=== PATIENT | female | born 1980 | race Caucasian/White ===

== ENCOUNTER 2017-04-22 15:23 | Emergency (ER) | payer MEDICAID ==
[2017-04-22] MEDS: Sodium Chloride 0.9% 10 ML Syringe FLUSH PRN ×2 (16:45→17:30)
[2017-04-22] MEDS ORDERED: Sodium Chloride 0.9% 10 ML SDV FLUSH ONE (17:12)
[2017-04-22] MEDS ORDERED: Iopamidol 612 MG/ML 150 ML Bottle IV PRN (17:12)
--- NOTE | 2017-04-22 18:00 | EDM.PDOC ---
<Frederick Justin - Last Filed: 04/22/17 17:52> ED HPI GENERAL MEDICAL PROBLEM - General Chief Complaint: Abdominal Pain Stated Complaint: ILLNESS Time Seen by Provider: 04/22/17 16:55 Source of Information: Reports: Patient History Limitations: Reports: No Limitations - History of Present Illness INITIAL COMMENTS - FREE TEXT/NARRATIVE: This patient complains of right lower quadrant pain and tenderness for the past 10 days. She says it feels like there may be an abscess. She had a panniculectomy last summer. There were 2 abscesses after that. It sounds like they were superficial and within the abdominal wall. She was seen in clinic yesterday. The whole I she feels the same as when she had abscesses. She's had dry heaves for about one week. Temperature was 100.4 in clinic yesterday she said her white blood cell count was normal. The white blood cell count was repeated earlier today and she said that was normal. Her PCP ordered an abdominal CT scan which is supposed to be done on Tuesday. Patient says that she 's had abdominal pain for a few weeks now. Right Lower Abdomen Pain Score (Numeric/FACES): 3 - Related Data Allergies Allergy/AdvReac Type Severity Reaction Status Date / Time shellfish derived Allergy Severe Anaphylactic Verified 05/22/16 08:21 Shock kiwi Allergy Facial Verified 07/05/16 08:13 Swelling Penicillins Allergy Rash Verified 05/22/16 08:21 clonazepam [From Klonopin] AdvReac Hallucinati Verified 05/22/16 10:44 ons hydromorphone HCl AdvReac Nausea Verified 05/22/16 08:21 [From Dilaudid] varenicline tartrate AdvReac Seizure Verified 05/22/16 08:21 [From Chantix] Home Meds: Home Meds FLUoxetine [PROzac] 80 mg PO DAILY 06/03/14 [History] Albuterol [Ventolin HFA] 2 puff INH Q4H PRN 06/06/14 [History] LORazepam [Ativan] 1 mg PO Q4HR PRN 06/06/14 [History] Omeprazole [Prilosec] 40 mg PO DAILY 08/13/14 [History] Dextroamphetamine/Amphetamine [Adderall 20 mg Tablet] 20 mg PO 1400 07/09/15 [ History] lamoTRIgine [Lamotrigine] 100 mg PO DAILY 07/09/15 [History] Levothyroxine Sodium [Synthroid] 112 mcg PO ACBREAKFAST 05/05/16 [History] Levothyroxine Sodium [Synthroid] 125 mcg PO DAILY 05/05/16 [History] Albuterol Sulfate 3 ml INH Q4HR PRN 05/07/16 [History] Amphetamine/Dextroamphetamine [Adderall XR] 40 mg PO WITHBREAKFAST cap.er 07/06 [Rx] Prazosin [Minpress] 20 mg PO BEDTIME 04/22/17 [History] Past Medical History HEENT History: Reports: Hard of Hearing Respiratory History: Reports: Asthma, Pneumonia, Recurrent Gastrointestinal History: Reports: Chronic Constipation, GERD Genitourinary History: Reports: Renal Calculus 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: Neurological History: Reports: Seizure Other Neuro History: pseudo-seizures r/t anxiety Psychiatric History: Reports: Anxiety, Depression, Psychosis, PTSD, Other (See Below) Other Psychiatric History: multiple personality disorder; 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" Endocrine/Metabolic History: Reports: Hypothyroidism, Obesity/BMI 30+, Vitamin D Deficiency Immunologic History: Reports: Other (See Below) Other Immunologic History: MRSA Oncologic (Cancer) History: Reports: None - Infectious Disease History Infectious Disease History: Reports: Chicken Pox - Past Surgical History HEENT Surgical History: Reports: Adenoidectomy, Other (See Below) GI Surgical History: Reports: Appendectomy, Cholecystectomy, Colonoscopy, EGD, Other (See Below) Other GI Surgeries/Procedures: panniculectomy, drainage of abdominal abcess x's 2 Female Surgical History: Reports: Breast Biopsy, Endometrial Ablation, Hysterectomy, Other (See Below) Neurological Surgical History: Reports: None Oncologic Surgical History: Reports: Lumpectomy Dermatological Surgical History: Reports: Skin Biopsy Social & Family History - Family History Family Medical History: Noncontributory HEENT: Reports: Macular Degeneration Cardiac: Reports: Hypertension Neurological: Reports: CVA Psychiatric: Reports: Anxiety, Depression Endocrine/Metabolic: Reports: Diabetes, type II Dermatologic: Reports: Psoriasis Oncologic: Reports: Colon - Tobacco Use Smoking Status *Q: Current Every Day Smoker Years of Tobacco use: 20 Packs/Tins Daily: 0.5 Used Tobacco, but Quit: No Month Tobacco Last Used: May Second Hand Smoke Exposure: No - Alcohol Use Days Per Week of Alcohol Use: 0 - Recreational Drug Use Recreational Drug Use: No - Living Situation & Occupation Living situation: Reports: with Significant Other Occupation: Employed ED ROS GENERAL - Review of Systems Review Of Systems: See Below Constitutional: Reports: Fever HEENT: Reports: No Symptoms Respiratory: Reports: No Symptoms Cardiovascular: Reports: No Symptoms Endocrine: Reports: No Symptoms GI/Abdominal: Reports: Other (See HPI ) : Reports: No Symptoms Musculoskeletal: Reports: No Symptoms Skin: Reports: No Symptoms Neurological: Reports: No Symptoms (About it) Psychiatric: Reports: No Symptoms Hematologic/Lymphatic: Reports: No Symptoms (The) ED EXAM, GI/ABD - Physical Exam Exam: See Below Exam Limited By: No Limitations General Appearance: Alert, Mild Distress, Obese Eyes: Bilateral: Normal Appearance Nose: Normal Inspection Throat/Mouth: Normal Oropharynx Head: Atraumatic Neck: Supple Respiratory/Chest: Lungs Clear Cardiovascular: Regular Rate, Rhythm, No Murmur GI/Abdominal: Normal Bowel Sounds, Soft, Tenderness (Mild to moderate right lower quadrant tenderness. No rebound.) Extremities: Normal Inspection Neurological: Alert, Oriented, CN II-XII Intact Lymphatic: No Adenopathy Course - Vital Signs Last Recorded V/S: Last Vital Signs Temp 99.7 F 04/22/17 15:44 Pulse 86 04/22/17 18:35 Resp 16 04/22/17 18:35 BP 125/71 04/22/17 18:35 Pulse Ox 98 04/22/17 18:35 - Orders/Labs/Meds Orders: Active Orders 24 hr Category Date Time Status Abdomen Pelvis w Cont [CT] Stat Exams 04/22/17 16:35 Taken CULTURE BLOOD [BC] Urgent Lab 04/22/17 18:55 Received CULTURE BLOOD [BC] Urgent Lab 04/22/17 19:05 Received Blood Culture x2 Reflex Set [OM.PC] Urgent Oth 04/22/17 18:53 Ordered Saline Lock Insert [OM.PC] Urgent Oth 04/22/17 16:35 Ordered Labs: Laboratory Tests 04/22/17 04/22/17 04/22/17 Range/Units 16:31 16:40 17:42 WBC 10.2 (4.5-11.0) K/uL RBC 5.04 (3.30-5.50) M/uL Hgb 14.3 D (12.0-15.0) g/dL Hct 42.7 (36.0-48.0) % MCV 85 (80-98) fL MCH 28 (27-31) pg MCHC 34 (32-36) % Plt Count 323 (150-400) K/uL Neut % (Auto) 59 (36-66) % Lymph % (Auto) 27 (24-44) % [place] % (Auto) 12 H (2-6) % Eos % (Auto) 1 L (2-4) % Baso % (Auto) 1 (0-1) % Sodium 134 L (140-148) mmol/L Potassium 4.2 (3.6-5.2) mmol/L Chloride 100 (100-108) mmol/L Carbon Dioxide 26 (21-32) mmol/L Anion Gap 12.2 (5.0-14.0) mmol/L BUN 12 (7-18) mg/dL Creatinine 0.8 (0.6-1.0) mg/dL Est Cr Clr Drug Dosing 84.76 mL/min Estimated GFR (MDRD) > 60 (>60) Glucose 95 (74-106) mg/dL Calcium 8.3 L (8.5-10.1) mg/dL Total Bilirubin 0.2 (0.2-1.0) mg/dL AST 22 (15-37) U/L ALT 41 D (12-78) U/L Alkaline Phosphatase 106 (46-116) U/L Total Protein 7.1 (6.4-8.2) g/dL Albumin 3.4 (3.4-5.0) g/dL Globulin 3.7 H (2.3-3.5) g/dL Albumin/Globulin Ratio 0.9 L (1.2-2.2) Urine Color Yellow Urine Appearance Cloudy Urine pH 8.0 (4.5-8.0) Ur Specific [place] 1.015 (1.008-1.030) Urine Protein Negative (NEGATIVE) mg/dL Urine Glucose (UA) Normal (NEGATIVE) mg/dL Urine Ketones Negative (NEGATIVE) mg/dL Urine Occult Blood Negative (NEGATIVE) Urine Nitrite Negative (NEGATIVE) Urine Bilirubin Negative (NEGATIVE) Urine Urobilinogen Normal (NORMAL) mg/dL Ur Leukocyte Esterase Small (NEGATIVE) Urine RBC 0-5 (0-5) Urine WBC 0-5 (0-5) Ur Epithelial Cells Many Amorphous Sediment Few Urine Bacteria Moderate Urine Mucus Rare Meds: Medications Discontinued Medications Generic Name Dose Route Start Last Admin Trade Name Erasmo PRN Reason Stop Dose Admin Sodium Chloride 85 mls @ 3 mls/sec 04/22/17 17:15 04/22/17 17:30 Normal Saline IV 3 mls/sec ASDIRECTED JOSE Administration Iopamidol 146 ml 04/22/17 17:12 Isovue-300 (61%) IV 04/23/17 17:13 . DIRECTED PRN RADIOLOGY EXAM Sodium Chloride 10 ml 04/22/17 16:35 04/22/17 17:30 Saline Flush FLUSH 10 ml ASDIRECTED PRN Administration Keep Vein Open Sodium Chloride 10 ml 04/22/17 17:12 Normal Saline FLUSH 04/22/17 17:13 ONETIME ONE Departure - Departure Disposition: Home, Self-Care 01 Clinical Impression: Fever, unknown origin Abdominal pain Qualifiers: Abdominal location: lower abdomen, unspecified Qualified Code(s): R10.30 - Lower abdominal pain, unspecified - Discharge Information Instructions: Fever, Adult, Abdominal Pain, Adult, [id number] Referrals: Guillermo Matos MD [Primary Care Provider] - Forms: ED Department Discharge Care Plan Goals: Increase diet and activity as tolerated. Return if worsening or concerns, and we will be in touch with you with the culture results in the next 48-72 hours. - My Orders Last 24 Hours: My Active Orders 04/22/17 18:53 Blood Culture x2 Reflex Set [OM.PC] Urgent 04/22/17 18:55 CULTURE BLOOD [BC] Urgent 04/22/17 19:05 CULTURE BLOOD [BC] Urgent - Assessment/Plan Last 24 Hours: My Active Orders 04/22/17 18:53 Blood Culture x2 Reflex Set [OM.PC] Urgent 04/22/17 18:55 CULTURE BLOOD [BC] Urgent 04/22/17 19:05 CULTURE BLOOD [BC] Urgent <Paramjit Mohr - Last Filed: 04/22/17 20:36> Course - Re-Assessments/Exams Free Text/Narrative Re-Assessment/Exam: 04/22/17 19:07 I reassured the patient that her CT scan was normal. She continued to insist that something was wrong, she is running intermittent fevers and her white count has gone up over the past several days. I a set of blood cultures and we will be in contact with her in a few days with results, I offered her an antibiotic until the results are available and she declined. Departure - Departure Time of Disposition: 19:23 Condition: good
[2017-04-22 18:36] VITALS: BP 125/71
== END 2017-04-22 19:20 | disposition home or self-care (01) ==
LOC: JP.ED 15:23
DX: R10.31 Right lower quadrant pain (principal); F17.210 Nicotine dependence, cigarettes, uncomplicated; J45.909 Unspecified asthma, uncomplicated; K21.9 Gastro-esophageal reflux disease without esophagitis; E03.9 Hypothyroidism, unspecified; E66.9 Obesity, unspecified; F43.10 Post-traumatic stress disorder, unspecified; Z90.89 Acquired absence of other organs; Z90.710 Acquired absence of both cervix and uterus; Z79.899 Other long term (current) drug therapy; Z88.0 Allergy status to penicillin; Z91.013 Allergy to seafood; Z88.8 Allergy status to other drugs, medicaments and biological substances; Z91.018 Allergy to other foods
CPT/HCPCS: 36415; 74177; 80053; 81001; 85025; 87040; 96360; 96361; 99284; J7030; J7050; 99283-25

== ENCOUNTER 2017-05-09 16:42 | Emergency (ER) | payer MEDICAID ==
[2017-05-09 18:21] VITALS: BP 128/77
[2017-05-09] MEDS ORDERED: Bacitracin Oint 1 GM U/D Packet TOP ONE (18:39)
--- NOTE | 2017-05-09 18:41 | EDM.PDOC ---
[id number] 4d CUT RIGHT THUMB Time Seen by Provider: 05/09/17 18:30 Source of Information: Reports: Patient History Limitations: Reports: No Limitations - History of Present Illness INITIAL COMMENTS - FREE TEXT/NARRATIVE: 36-year-old female with a laceration to the right hand. She was struck on the dorsal right hand between the thumb and index finger. She has pain with movement of the thumb. The laceration is 2 cm long. Onset: Today Duration: Hour(s): (Within the last hour) Hand Pain Score (Numeric/FACES): 6 - Related Data Allergies Allergy/AdvReac Type Severity Reaction Status Date / Time shellfish derived Allergy Severe Anaphylactic Verified 05/09/17 18:24 Shock kiwi Allergy Facial Verified 05/09/17 18:24 Swelling Penicillins Allergy Rash Verified 05/09/17 18:24 clonazepam [From Klonopin] AdvReac Hallucinati Verified 05/09/17 18:24 ons hydromorphone HCl AdvReac Nausea Verified 05/09/17 18:24 [From Dilaudid] varenicline tartrate AdvReac Seizure Verified 05/09/17 18:24 [From Chantix] Home Meds: Home Meds FLUoxetine [PROzac] 80 mg PO DAILY 06/03/14 [History] Albuterol [Ventolin HFA] 2 puff INH Q4H PRN 06/06/14 [History] LORazepam [Ativan] 1 mg PO Q4HR PRN 06/06/14 [History] Omeprazole [Prilosec] 40 mg PO DAILY 08/13/14 [History] Dextroamphetamine/Amphetamine [Adderall 20 mg Tablet] 20 mg PO 1400 07/09/15 [ History] lamoTRIgine [Lamotrigine] 150 mg PO DAILY 07/09/15 [History] Levothyroxine Sodium [Synthroid] 112 mcg PO ACBREAKFAST 05/05/16 [History] Levothyroxine Sodium [Synthroid] 125 mcg PO DAILY 05/05/16 [History] Albuterol Sulfate 3 ml INH Q4HR PRN 05/07/16 [History] Amphetamine/Dextroamphetamine [Adderall XR] 40 mg PO WITHBREAKFAST cap.er 07/06 [Rx] Past Medical History HEENT History: Reports: Hard of Hearing Respiratory History: Reports: Asthma, Pneumonia, Recurrent Gastrointestinal History: Reports: Chronic Constipation, GERD Genitourinary History: Reports: Renal Calculus 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: Neurological History: Reports: Seizure Other Neuro History: pseudo-seizures r/t anxiety Psychiatric History: Reports: Anxiety, Depression, Psychosis, PTSD, Other (See Below) Other Psychiatric History: multiple personality disorder; 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" Endocrine/Metabolic History: Reports: Hypothyroidism, Obesity/BMI 30+, Vitamin D Deficiency Immunologic History: Reports: Other (See Below) Other Immunologic History: MRSA Oncologic (Cancer) History: Reports: None - Infectious Disease History Infectious Disease History: Reports: MRSA - Past Surgical History HEENT Surgical History: Reports: Adenoidectomy, Other (See Below) GI Surgical History: Reports: Appendectomy, Cholecystectomy, Colonoscopy, EGD, Other (See Below) Other GI Surgeries/Procedures: panniculectomy, drainage of abdominal abcess x's 2 Female Surgical History: Reports: Breast Biopsy, Endometrial Ablation, Hysterectomy, Other (See Below) Neurological Surgical History: Reports: None Oncologic Surgical History: Reports: Lumpectomy Dermatological Surgical History: Reports: Skin Biopsy Social & Family History - Family History Family Medical History: Noncontributory HEENT: Reports: Macular Degeneration Cardiac: Reports: Hypertension Neurological: Reports: CVA Psychiatric: Reports: Anxiety, Depression Endocrine/Metabolic: Reports: Diabetes, type II Dermatologic: Reports: Psoriasis Oncologic: Reports: Colon - Tobacco Use Smoking Status *Q: Current Every Day Smoker Years of Tobacco use: 20 Packs/Tins Daily: 0.5 Used Tobacco, but Quit: No Month Tobacco Last Used: May Second Hand Smoke Exposure: No - Alcohol Use Days Per Week of Alcohol Use: 0 - Recreational Drug Use Recreational Drug Use: No - Living Situation & Occupation Living situation: Reports: with Significant Other Occupation: Employed ED ROS GENERAL - Review of Systems Review Of Systems: See Below Respiratory: Denies: Shortness of Breath Cardiovascular: Denies: Chest Pain Neurological: Reports: No Symptoms (No numbness of the thumb) ED EXAM, SKIN/RASH Exam: See Below Exam Limited By: No Limitations General Appearance: Alert, Anxious Respiratory/Chest: No Respiratory Distress Extremities: Other (Remainder of exam is limited to the right hand. She has a 2 cm laceration on the dorsum of the hand noted the base of the thumb towards the index finger. She has pain with movement of the thumb.) Course - Vital Signs Last Recorded V/S: Last Vital Signs Temp 99.4 F 05/09/17 18:22 Pulse 104 H 05/09/17 18:22 Resp 16 05/09/17 18:22 BP 128/77 05/09/17 18:22 Pulse Ox 99 05/09/17 18:22 - Orders/Labs/Meds Meds: Medications Discontinued Medications Generic Name Dose Route Start Last Admin Trade Name Erasmo PRN Reason Stop Dose Admin Bacitracin 1 dose 05/09/17 18:39 05/09/17 18:44 Bacitracin Oint 1 Gm TOP 05/09/17 18:40 1 dose ONETIME ONE Administration Lidocaine HCl 5 ml 05/09/17 18:39 05/09/17 18:44 Xylocaine-Mpf 1% INJECT 05/09/17 18:40 5 ml ONETIME ONE Administration - Re-Assessments/Exams Free Text/Narrative Re-Assessment/Exam: 05/09/17 19:06 The area was anesthetized with 1% lidocaine, cleansed with saline and Hibiclens and examined. There was no foreign body found and no apparent significant injury deep to the wound. 4 4-0 Ethilon sutures were used to close the laceration, bacitracin was applied and the wound was covered. She will she was also given an Filipe wrap to put in a thumb spica pattern around the thumb to limit range of motion. Sutures can be removed in 7 days. She should increase activity as tolerated. Recheck next week if not healing satisfactorily. Departure - Departure Time of Disposition: 19:20 Disposition: Home, Self-Care 01 Condition: Good Clinical Impression: Laceration of hand Qualifiers: Encounter type: initial encounter Foreign body presence: without foreign body Laterality: right Qualified Code(s): S61.411A - Laceration without foreign body of right hand, initial encounter - Discharge Information Instructions: Laceration Care, Adult, [id number] Referrals: Guillermo Matos MD [Primary Care Provider] - Forms: ED Department Discharge Care Plan Goals: Keep wound covered and clean while healing. Increase activity as tolerated, and recheck in 4-5 days if concerns you are not healing satisfactorily. Sutures can be removed in 7 days.
== END 2017-05-09 19:20 | disposition home or self-care (01) ==
LOC: JP.ED 16:42
DX: S61.411A Laceration without foreign body of right hand, initial encounter (principal); J45.909 Unspecified asthma, uncomplicated; K21.9 Gastro-esophageal reflux disease without esophagitis; E03.9 Hypothyroidism, unspecified; E66.9 Obesity, unspecified; Z88.0 Allergy status to penicillin; Z91.018 Allergy to other foods; Z88.8 Allergy status to other drugs, medicaments and biological substances; Z79.899 Other long term (current) drug therapy; W22.8XXA Striking against or struck by other objects, initial encounter
CPT/HCPCS: 12001; 99282-25; 99283-25

== ENCOUNTER 2017-09-01 01:14 | Emergency (ER) | payer MEDICAID ==
--- NOTE | 2017-09-01 02:06 | EDM.PDOC ---
ED HPI GENERAL MEDICAL PROBLEM - General Chief Complaint: Wound Recheck Stated Complaint: REPACK EAR AFTER SURGERY Time Seen by Provider: 09/01/17 02:02 Source of Information: Reports: Patient History Limitations: Reports: No Limitations - History of Present Illness INITIAL COMMENTS - FREE TEXT/NARRATIVE: This lady had a lot of surgery done to her right ear recently. The wound was packed and somehow tonight when she rolled over in bed some of the packing pulled out she said it just a long strip of thin gauze Right Ear Pain Score (Numeric/FACES): 8 - Related Data Allergies Allergy/AdvReac Type Severity Reaction Status Date / Time shellfish derived Allergy Severe Anaphylactic Verified 05/09/17 18:24 Shock kiwi Allergy Facial Verified 05/09/17 18:24 Swelling Penicillins Allergy Rash Verified 05/09/17 18:24 clonazepam [From Klonopin] AdvReac Hallucinati Verified 05/09/17 18:24 ons hydromorphone HCl AdvReac Nausea Verified 05/09/17 18:24 [From Dilaudid] varenicline tartrate AdvReac Seizure Verified 05/09/17 18:24 [From Chantix] Home Meds: Home Meds FLUoxetine [PROzac] 80 mg PO DAILY 06/03/14 [History] Albuterol [Ventolin HFA] 2 puff INH Q4H PRN 06/06/14 [History] LORazepam [Ativan] 1 mg PO Q4HR PRN 06/06/14 [History] Omeprazole [Prilosec] 40 mg PO DAILY 08/13/14 [History] Dextroamphetamine/Amphetamine [Adderall 20 mg Tablet] 20 mg PO 1400 07/09/15 [ History] lamoTRIgine [Lamotrigine] 150 mg PO DAILY 07/09/15 [History] Levothyroxine Sodium [Synthroid] 112 mcg PO ACBREAKFAST 05/05/16 [History] Albuterol Sulfate 3 ml INH Q4HR PRN 05/07/16 [History] Amphetamine/Dextroamphetamine [Adderall XR] 40 mg PO WITHBREAKFAST cap.er 07/06 [Rx] Albuterol/Ipratropium [DuoNeb 3.0-0.5 MG/3 ML] 1 dose INH Q4H PRN 09/01/17 [ History] Past Medical History HEENT History: Reports: Hard of Hearing, Other (See Below) Other HEENT History: ear surgery to right Respiratory History: Reports: Asthma, Pneumonia, Recurrent Gastrointestinal History: Reports: Chronic Constipation, GERD Genitourinary History: Reports: Renal Calculus 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: Neurological History: Reports: Seizure Other Neuro History: pseudo-seizures r/t anxiety Psychiatric History: Reports: Anxiety, Depression, Psychosis, PTSD, Other (See Below) Other Psychiatric History: multiple personality disorder; 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" Endocrine/Metabolic History: Reports: Hypothyroidism, Obesity/BMI 30+, Vitamin D Deficiency Immunologic History: Reports: Other (See Below) Other Immunologic History: MRSA Oncologic (Cancer) History: Reports: None - Infectious Disease History Infectious Disease History: Reports: Chicken Pox, MRSA - Past Surgical History HEENT Surgical History: Reports: Adenoidectomy, Other (See Below) GI Surgical History: Reports: Appendectomy, Cholecystectomy, Colonoscopy, EGD, Other (See Below) Other GI Surgeries/Procedures: panniculectomy, drainage of abdominal abcess x's 2 Female Surgical History: Reports: Breast Biopsy, Endometrial Ablation, Hysterectomy, Other (See Below) Neurological Surgical History: Reports: None Oncologic Surgical History: Reports: Lumpectomy Dermatological Surgical History: Reports: Skin Biopsy Social & Family History - Family History Family Medical History: Noncontributory HEENT: Reports: Macular Degeneration Cardiac: Reports: Hypertension Neurological: Reports: CVA Psychiatric: Reports: Anxiety, Depression Endocrine/Metabolic: Reports: Diabetes, type II Dermatologic: Reports: Psoriasis Oncologic: Reports: Colon - Tobacco Use Smoking Status *Q: Former Smoker Years of Tobacco use: 20 Packs/Tins Daily: 0.5 Used Tobacco, but Quit: Yes Month Tobacco Last Used: july Second Hand Smoke Exposure: No - Caffeine Use Caffeine Use: Reports: Coffee, Soda - Alcohol Use Days Per Week of Alcohol Use: 0 - Recreational Drug Use Recreational Drug Use: No - Living Situation & Occupation Living situation: Reports: with Significant Other Occupation: Employed ED ROS GENERAL - Review of Systems Review Of Systems: ROS reveals no pertinent complaints other than HPI. ED EXAM, SKIN/RASH Exam: See Below Exam Limited By: No Limitations General Appearance: Alert, No Apparent Distress Ears: Other (The right ear shows there is still quite a bit of packing down deep in the ear. There is no drainage. It appears that a superficial layer of packing fell out of the ear but what is deep inside is all intact) Course - Vital Signs Last Recorded V/S: Last Vital Signs Temp 37.1 C 09/01/17 01:25 Pulse 85 09/01/17 01:25 Resp 20 09/01/17 01:25 BP 143/93 H 09/01/17 01:25 Pulse Ox 98 09/01/17 01:25 - Re-Assessments/Exams Free Text/Narrative Re-Assessment/Exam: 09/01/17 02:04 Half-inch plain gauze was moistened with saline and then a short length of that was placed inside the right ear on top of the other gauze. Then the date of 4 before type of dressing was then put over it and and her head was wrapped with Kerlix Departure - Departure Time of Disposition: 02:04 Disposition: Home, Self-Care 01 Condition: Fair Clinical Impression: Encounter for surgical wound dressing change - Discharge Information Referrals: Guillermo Matos MD [Primary Care Provider] - Additional Instructions: Since the packing deep inside of the ear is still intact there is no real need to contact your tomorrow. Just plan to follow-up as originally arranged
[2017-09-01 03:22] VITALS: BP 143/93
== END 2017-09-01 02:17 | disposition home or self-care (01) ==
LOC: JP.ED 01:14
DX: Z48.810 Encounter for surgical aftercare following surgery on the sense organs (principal); K21.9 Gastro-esophageal reflux disease without esophagitis; J45.909 Unspecified asthma, uncomplicated; Z91.013 Allergy to seafood; Z88.0 Allergy status to penicillin; Z88.5 Allergy status to narcotic agent; Z88.8 Allergy status to other drugs, medicaments and biological substances; Z79.899 Other long term (current) drug therapy; Z87.442 Personal history of urinary calculi; Z87.891 Personal history of nicotine dependence
CPT/HCPCS: 99283; 99284

== ENCOUNTER 2017-09-02 21:00 | Emergency (ER) | payer MEDICAID ==
[2017-09-02 21:34] VITALS: BP 148/92
[2017-09-02] MEDS ORDERED: fentaNYL 100 MCG/2 ML SDV IM ONE (22:17)
--- NOTE | 2017-09-02 22:23 | EDM.PDOC ---
ED HPI GENERAL MEDICAL PROBLEM - General Chief Complaint: ENT Problem Stated Complaint: EAR PAIN Time Seen by Provider: 09/02/17 22:00 Source of Information: Reports: Patient History Limitations: Reports: No Limitations - History of Present Illness INITIAL COMMENTS - FREE TEXT/NARRATIVE: 37 years old female patient presented with chief complaint of right ear ache. Patient is status post surgery on the right ear and right mastoid area last Tuesday at [facility]. She has been doing well until 1 PM today when she sneezed and started having an instant pain in her right ear after she sneezed. Denies any fever. Denies any bleeding or discharge from her ear. Patient contacted [facility] and was instructed to take her oxycodone to [place] instead of 1 every 4 hour and add Tylenol to her regimen and if it didn't work then she was advised to present to ER or urgent care for pain medication. right ear Pain Score (Numeric/FACES): 10 - Related Data Allergies Allergy/AdvReac Type Severity Reaction Status Date / Time shellfish derived Allergy Severe Anaphylactic Verified 09/02/17 21:34 Shock kiwi Allergy Facial Verified 09/02/17 21:34 Swelling Penicillins Allergy Rash Verified 09/02/17 21:34 clonazepam [From Klonopin] AdvReac Hallucinati Verified 09/02/17 21:34 ons hydromorphone HCl AdvReac Nausea Verified 09/02/17 21:34 [From Dilaudid] varenicline tartrate AdvReac Seizure Verified 09/02/17 21:34 [From Chantix] Home Meds: Home Meds FLUoxetine [PROzac] 80 mg PO DAILY 06/03/14 [History] Albuterol [Ventolin HFA] 2 puff INH Q4H PRN 06/06/14 [History] LORazepam [Ativan] 1 mg PO Q4HR PRN 06/06/14 [History] Omeprazole [Prilosec] 40 mg PO DAILY 08/13/14 [History] Dextroamphetamine/Amphetamine [Adderall 20 mg Tablet] 20 mg PO 1400 07/09/15 [ History] lamoTRIgine [Lamotrigine] 150 mg PO DAILY 07/09/15 [History] Levothyroxine Sodium [Synthroid] 112 mcg PO ACBREAKFAST 05/05/16 [History] Albuterol Sulfate 3 ml INH Q4HR PRN 05/07/16 [History] Amphetamine/Dextroamphetamine [Adderall XR] 40 mg PO WITHBREAKFAST cap.er 07/06 [Rx] Albuterol/Ipratropium [DuoNeb 3.0-0.5 MG/3 ML] 1 dose INH Q4H PRN 09/01/17 [ History] Past Medical History HEENT History: Reports: Hard of Hearing, Other (See Below) Other HEENT History: ear surgery to right Respiratory History: Reports: Asthma, Pneumonia, Recurrent Gastrointestinal History: Reports: Chronic Constipation, GERD Genitourinary History: Reports: Renal Calculus 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: Neurological History: Reports: Seizure Other Neuro History: pseudo-seizures r/t anxiety Psychiatric History: Reports: Anxiety, Depression, Psychosis, PTSD, Other (See Below) Other Psychiatric History: multiple personality disorder; 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" Endocrine/Metabolic History: Reports: Hypothyroidism, Obesity/BMI 30+, Vitamin D Deficiency Immunologic History: Reports: Other (See Below) Other Immunologic History: MRSA Oncologic (Cancer) History: Reports: None - Infectious Disease History Infectious Disease History: Reports: Chicken Pox, MRSA - Past Surgical History HEENT Surgical History: Reports: Adenoidectomy, Other (See Below) GI Surgical History: Reports: Appendectomy, Cholecystectomy, Colonoscopy, EGD, Other (See Below) Other GI Surgeries/Procedures: panniculectomy, drainage of abdominal abcess x's 2 Female Surgical History: Reports: Breast Biopsy, Endometrial Ablation, Hysterectomy, Other (See Below) Neurological Surgical History: Reports: None Oncologic Surgical History: Reports: Lumpectomy Dermatological Surgical History: Reports: Skin Biopsy Social & Family History - Family History Family Medical History: Noncontributory HEENT: Reports: Macular Degeneration Cardiac: Reports: Hypertension Neurological: Reports: CVA Psychiatric: Reports: Anxiety, Depression Endocrine/Metabolic: Reports: Diabetes, type II Dermatologic: Reports: Psoriasis Oncologic: Reports: Colon - Tobacco Use Smoking Status *Q: Unknown Ever Smoked Years of Tobacco use: 20 Packs/Tins Daily: 0.5 Used Tobacco, but Quit: Yes Month Tobacco Last Used: july Second Hand Smoke Exposure: No - Caffeine Use Caffeine Use: Reports: Coffee, Soda - Alcohol Use Days Per Week of Alcohol Use: 0 - Recreational Drug Use Recreational Drug Use: No - Living Situation & Occupation Living situation: Reports: with Significant Other Occupation: Employed ED ROS ENT - Review of Systems Review Of Systems: ROS reveals no pertinent complaints other than HPI. ED EXAM, ENT - Physical Exam Exam: See Below Exam Limited By: No Limitations General Appearance: Alert, WD/WN, No Apparent Distress Ears: Other (Left ear unremarkable. Patient was instructed not to remove the ear packing in her right ear. No obvious external bleeding or discharge or erythema. Surgical wound is healing appropriately) Course - Vital Signs Last Recorded V/S: Last Vital Signs Temp 37.1 C 09/02/17 21:32 Pulse 109 H 09/02/17 21:32 Resp 15 09/02/17 21:32 BP 148/92 H 09/02/17 21:32 Pulse Ox 96 09/02/17 21:32 - Orders/Labs/Meds Meds: Medications Discontinued Medications Generic Name Dose Route Start Last Admin Trade Name Gurwinderq PRN Reason Stop Dose Admin Fentanyl 100 mcg 09/02/17 22:17 09/02/17 22:35 Sublimaze IM 09/02/17 22:18 100 mcg ONETIME ONE Administration - Re-Assessments/Exams Free Text/Narrative Re-Assessment/Exam: 09/02/17 22:22 Patient was examined and stable. She is allergic to Dilaudid and morphine. She was offered IV fentanyl versus IM and she chose IM. Was given 100 g of IM fentanyl. Symptom markedly improved. Advised to continue her home pain meds and follow her ENT recommendation. With a close follow-up. Come back symptom worsen. Patient agrees with the plan. Stable for discharge 09/02/17 22:59 Departure - Departure Time of Disposition: 23:00 Disposition: DC/Tfer W/I Hosp To Swing 61 Condition: Good Clinical Impression: Ear ache, Postoperative pain - Discharge Information Referrals: Guillermo Matos MD [Primary Care Provider] - Forms: ED Department Discharge - Assessment/Plan Plan: Advised to continue her home pain meds and follow her ENT recommendation. With a close follow-up. Come back symptom worsen.
== END 2017-09-02 23:16 | disposition home or self-care (01) ==
LOC: JP.ED 21:00
DX: G89.18 Other acute postprocedural pain (principal); H92.01 Otalgia, right ear; Z91.013 Allergy to seafood; Z91.018 Allergy to other foods; Z88.6 Allergy status to analgesic agent; Z79.899 Other long term (current) drug therapy; J45.909 Unspecified asthma, uncomplicated; K21.9 Gastro-esophageal reflux disease without esophagitis; E66.9 Obesity, unspecified
CPT/HCPCS: 96372; 99284; J3010

== ENCOUNTER 2017-09-23 12:05 | Emergency (ER) | payer MEDICAID ==
[2017-09-23 13:57] VITALS: BP 151/91
[2017-09-23] MEDS ORDERED: Sulfamethoxazole/Trimethoprim 800-160 MG Tab PO ONE (14:11)
[2017-09-23] MEDS ORDERED: Acetaminophen/oxyCODONE 325-5 MG Tab PO ONE (14:12)
--- NOTE | 2017-09-23 14:15 | EDM.PDOC ---
ED HPI GENERAL MEDICAL PROBLEM - General Chief Complaint: ENT Problem Stated Complaint: right ear infected Time Seen by Provider: 09/23/17 14:00 Source of Information: Reports: Patient, Old Records History Limitations: Reports: No Limitations - History of Present Illness INITIAL COMMENTS - FREE TEXT/NARRATIVE: 37 yo female here with R ear pain and purulent drainage. Is on cipro drops and recently finished clindamycin oral. No fever. Had oxycodone earlier for pain relief and is out of this. Had recent R ear surgery in [facility]. Onset: Gradual Duration: Day(s): Location: Reports: Face (R ear. ) Quality: Reports: Ache Severity: Moderate Improves with: Reports: None Worsens with: Reports: Other (Time) Context: Reports: Other (Is being tx'd for otitis externa) Associated Symptoms: Reports: No Other Symptoms. 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 Right Ear Pain Score (Numeric/FACES): 8 - Related Data Allergies Allergy/AdvReac Type Severity Reaction Status Date / Time shellfish derived Allergy Severe Anaphylactic Verified 09/23/17 13:58 Shock kiwi Allergy Facial Verified 09/23/17 13:58 Swelling Penicillins Allergy Rash Verified 09/23/17 13:58 clonazepam [From Klonopin] AdvReac Hallucinati Verified 09/23/17 13:58 ons hydromorphone HCl AdvReac Nausea Verified 09/23/17 13:58 [From Dilaudid] varenicline tartrate AdvReac Seizure Verified 09/23/17 13:58 [From Chantix] Home Meds: Home Meds FLUoxetine [PROzac] 80 mg PO DAILY 06/03/14 [History] Albuterol [Ventolin HFA] 2 puff INH Q4H PRN 06/06/14 [History] LORazepam [Ativan] 1 mg PO Q4HR PRN 06/06/14 [History] Omeprazole [Prilosec] 40 mg PO DAILY 08/13/14 [History] Dextroamphetamine/Amphetamine [Adderall 20 mg Tablet] 20 mg PO 1400 07/09/15 [ History] lamoTRIgine [Lamotrigine] 150 mg PO DAILY 07/09/15 [History] Levothyroxine Sodium [Synthroid] 112 mcg PO ACBREAKFAST 05/05/16 [History] Albuterol Sulfate 3 ml INH Q4HR PRN 05/07/16 [History] Amphetamine/Dextroamphetamine [Adderall XR] 40 mg PO WITHBREAKFAST cap.er 07/06 [Rx] Albuterol/Ipratropium [DuoNeb 3.0-0.5 MG/3 ML] 1 dose INH Q4H PRN 09/01/17 [ History] Ofloxacin [Ocuflox 0.3% Ophth Soln] 4 drop EARRT BID 09/23/17 [History] Sulfamethoxazole/Trimethoprim [Bactrim Ds Tablet] 1 each PO Q12H #20 tablet 02/04 [Rx] oxyCODONE 5 - 10 mg PO Q4H PRN #20 tab 09/23/17 [Rx] Past Medical History HEENT History: Reports: Hard of Hearing, Other (See Below) Other HEENT History: ear surgery to right Respiratory History: Reports: Asthma, Pneumonia, Recurrent Gastrointestinal History: Reports: Chronic Constipation, GERD Genitourinary History: Reports: Renal Calculus 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: Neurological History: Reports: Seizure Other Neuro History: pseudo-seizures r/t anxiety Psychiatric History: Reports: Anxiety, Depression, Psychosis, PTSD, Other (See Below) Other Psychiatric History: multiple personality disorder; 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" Endocrine/Metabolic History: Reports: Hypothyroidism, Obesity/BMI 30+, Vitamin D Deficiency Immunologic History: Reports: Other (See Below) Other Immunologic History: MRSA Oncologic (Cancer) History: Reports: None - Infectious Disease History Infectious Disease History: Reports: Chicken Pox - Past Surgical History HEENT Surgical History: Reports: Adenoidectomy, Other (See Below) GI Surgical History: Reports: Appendectomy, Cholecystectomy, Colonoscopy, EGD, Other (See Below) Other GI Surgeries/Procedures: panniculectomy, drainage of abdominal abcess x's 2 Female Surgical History: Reports: Breast Biopsy, Endometrial Ablation, Hysterectomy, Other (See Below) Neurological Surgical History: Reports: None Oncologic Surgical History: Reports: Lumpectomy Dermatological Surgical History: Reports: Skin Biopsy Social & Family History - Family History Family Medical History: Noncontributory HEENT: Reports: Macular Degeneration Cardiac: Reports: Hypertension Neurological: Reports: CVA Psychiatric: Reports: Anxiety, Depression Endocrine/Metabolic: Reports: Diabetes, type II Dermatologic: Reports: Psoriasis Oncologic: Reports: Colon - Tobacco Use Smoking Status *Q: Current Every Day Smoker Years of Tobacco use: 2 Packs/Tins Daily: 0.5 Used Tobacco, but Quit: Yes Month Tobacco Last Used: july Second Hand Smoke Exposure: No - Caffeine Use Caffeine Use: Reports: Coffee, Soda - Alcohol Use Days Per Week of Alcohol Use: 0 - Recreational Drug Use Recreational Drug Use: No - Living Situation & Occupation Living situation: Reports: with Significant Other Occupation: Employed ED ROS ENT - Review of Systems Review Of Systems: See Below Constitutional: Reports: No Symptoms HEENT: Reports: Ear Discharge, Ear Pain, Hearing Loss (chronic). Denies: Dental Pain, Eye Discharge, Eye Pain, Nosebleed, Nose Pain, Rhinitis, Sinus Problem, Throat Pain, Throat Swelling Respiratory: Reports: No Symptoms Cardiovascular: Reports: No Symptoms Skin: Reports: No Symptoms Neurological: Reports: No Symptoms ED EXAM, ENT - Physical Exam Exam: See Below Exam Limited By: No Limitations General Appearance: Alert, WD/WN, No Apparent Distress, Obese Eye Exam: Bilateral Eye: Normal Inspection Ears: Normal External Exam, Hearing Loss, Canal Discharge, Other (T TM not seen due to drainage present) Nose: Normal Inspection, Normal Mucousa, No Blood Mouth/Throat: Normal Inspection, Normal Gums, Normal Lips, Normal Oropharynx, Normal Teeth Head: Atraumatic, Normocephalic Neck: Normal Inspection, Supple, Non-Tender Respiratory/Chest: No Respiratory Distress, No Accessory Muscle Use Cardiovascular: Regular Rate, Rhythm Neurological: Alert, Oriented, CN II-XII Intact, Normal Cognition, No Motor/ Sensory Deficits Psychiatric: Normal Affect, Normal Mood Skin: Warm, Dry, Intact, Normal Color, No Rash Lymphatic: No Adenopathy Course - Vital Signs Last Recorded V/S: Last Vital Signs Temp 36.6 C 09/23/17 13:48 Pulse 90 09/23/17 13:48 Resp 17 09/23/17 13:48 BP 151/91 H 09/23/17 13:48 Pulse Ox 98 09/23/17 13:48 - Orders/Labs/Meds Meds: Medications Discontinued Medications Generic Name Dose Route Start Last Admin Trade Name Freq PRN Reason Stop Dose Admin Oxycodone/Acetaminophen 1 tab 09/23/17 14:12 Percocet 325-5 Mg PO 09/23/17 14:13 ONETIME ONE Trimethoprim/Sulfamethoxazole 1 tab 09/23/17 14:11 Septra Ds PO 09/23/17 14:12 ONETIME ONE Departure - Departure Time of Disposition: 14:21 Disposition: Home, Self-Care 01 Condition: Fair Clinical Impression: Otitis externa Qualifiers: Otitis externa type: unspecified type Chronicity: unspecified Laterality: right Qualified Code(s): H60.91 - Unspecified otitis externa, right ear - Discharge Information Prescriptions: oxyCODONE 5 - 10 mg PO Q4H PRN #20 tab PRN Reason: Pain Sulfamethoxazole/Trimethoprim [Bactrim Ds Tablet] 1 each PO Q12H #20 tablet Referrals: Guillermo Matos MD [Primary Care Provider] - Forms: ED Department Discharge Additional Instructions: Use the Bactrim as directed until gone. Take oxycodone as needed for pain relief along with acetaminophen. Recheck with your doctor on Tuesday, call for an appt. Return if worse. Continue your ear drops.
== END 2017-09-23 14:40 | disposition home or self-care (01) ==
LOC: JP.ED 12:05
DX: H60.91 Unspecified otitis externa, right ear (principal); J45.909 Unspecified asthma, uncomplicated; E03.9 Hypothyroidism, unspecified; E66.9 Obesity, unspecified; Z79.899 Other long term (current) drug therapy; Z88.8 Allergy status to other drugs, medicaments and biological substances; Z91.013 Allergy to seafood; Z88.0 Allergy status to penicillin; Z91.018 Allergy to other foods
CPT/HCPCS: 99283; A9270

== ENCOUNTER 2017-12-27 20:27 | Emergency (ER) | payer MEDICAID ==
[2017-12-27 20:45] VITALS: BP 130/66
--- NOTE | 2017-12-27 21:31 | EDM.PDOC ---
ED HPI GENERAL MEDICAL PROBLEM - General Chief Complaint: ENT Problem Stated Complaint: R EAR PAIN Time Seen by Provider: 12/27/17 21:13 Source of Information: Reports: Patient, Old Records, RN Notes Reviewed History Limitations: Reports: No Limitations - History of Present Illness INITIAL COMMENTS - FREE TEXT/NARRATIVE: 37-year-old female presents emergency department day complaint of fever headache right ear pain she has a history of extensive ear surgery on the right side with history and infections. She states this particular case started a couple days ago she is not had significant drainage but it is painful. right ear Pain Score (Numeric/FACES): 7 - Related Data Allergies Allergy/AdvReac Type Severity Reaction Status Date / Time shellfish derived Allergy Severe Anaphylactic Verified 12/27/17 20:37 Shock kiwi Allergy Facial Verified 12/27/17 20:37 Swelling Penicillins Allergy Rash Verified 12/27/17 20:37 clonazepam [From Klonopin] AdvReac Hallucinati Verified 12/27/17 20:37 ons hydromorphone HCl AdvReac Nausea Verified 12/27/17 20:37 [From Dilaudid] varenicline tartrate AdvReac Seizure Verified 12/27/17 20:37 [From Chantix] Home Meds: Home Meds FLUoxetine [PROzac] 80 mg PO DAILY 06/03/14 [History] Albuterol [Ventolin HFA] 2 puff INH Q4H PRN 06/06/14 [History] LORazepam [Ativan] 1 mg PO Q4HR PRN 06/06/14 [History] Omeprazole [Prilosec] 40 mg PO DAILY 08/13/14 [History] Dextroamphetamine/Amphetamine [Adderall 20 mg Tablet] 30 mg PO 1400 07/09/15 [ History] lamoTRIgine [Lamotrigine] 150 mg PO DAILY 07/09/15 [History] Levothyroxine Sodium [Synthroid] 112 mcg PO ACBREAKFAST 05/05/16 [History] Albuterol Sulfate 3 ml INH Q4HR PRN 05/07/16 [History] Amphetamine/Dextroamphetamine [Adderall XR] 40 mg PO WITHBREAKFAST cap.er 07/06 [Rx] Albuterol/Ipratropium [DuoNeb 3.0-0.5 MG/3 ML] 1 dose INH Q4H PRN 10/12/17 [ History] Past Medical History HEENT History: Reports: Hard of Hearing, Other (See Below) Other HEENT History: ear surgery to right Respiratory History: Reports: Asthma, Pneumonia, Recurrent Gastrointestinal History: Reports: Chronic Constipation, GERD Genitourinary History: Reports: Renal Calculus 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: Neurological History: Reports: Seizure Other Neuro History: pseudo-seizures r/t anxiety Psychiatric History: Reports: Anxiety, Depression, Psychosis, PTSD, Other (See Below) Other Psychiatric History: multiple personality disorder; 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" Endocrine/Metabolic History: Reports: Hypothyroidism, Obesity/BMI 30+, Vitamin D Deficiency Immunologic History: Reports: Other (See Below) Other Immunologic History: MRSA Oncologic (Cancer) History: Reports: None - Infectious Disease History Infectious Disease History: Reports: MRSA - Past Surgical History HEENT Surgical History: Reports: Adenoidectomy Other HEENT Surgeries/Procedures: 15 ear surgeries GI Surgical History: Reports: Appendectomy, Cholecystectomy, Colonoscopy, EGD, Other (See Below) Other GI Surgeries/Procedures: panniculectomy, drainage of abdominal abcess x's 2 Female Surgical History: Reports: Breast Biopsy, Endometrial Ablation, Hysterectomy Oncologic Surgical History: Reports: Lumpectomy Dermatological Surgical History: Reports: Skin Biopsy Social & Family History - Family History Family Medical History: Noncontributory HEENT: Reports: Macular Degeneration Cardiac: Reports: Hypertension Neurological: Reports: CVA Psychiatric: Reports: Anxiety, Depression Endocrine/Metabolic: Reports: Diabetes, type II Dermatologic: Reports: Psoriasis Oncologic: Reports: Colon - Tobacco Use Smoking Status *Q: Current Every Day Smoker Years of Tobacco use: 20 Packs/Tins Daily: 0.5 Used Tobacco, but Quit: Yes Month Tobacco Last Used: july Second Hand Smoke Exposure: No - Caffeine Use Caffeine Use: Reports: Soda - Alcohol Use Days Per Week of Alcohol Use: 0 - Recreational Drug Use Recreational Drug Use: No - Living Situation & Occupation Living situation: Reports: with Significant Other Occupation: Employed ED ROS ENT - Review of Systems Review Of Systems: See Below Constitutional: Reports: Fever, Chills HEENT: Reports: Ear Discharge, Ear Pain Respiratory: Reports: No Symptoms Cardiovascular: Reports: No Symptoms GI/Abdominal: Reports: No Symptoms : Reports: No Symptoms Neurological: Reports: Headache ED EXAM, ENT - Physical Exam Exam: See Below Exam Limited By: No Limitations General Appearance: Alert, Mild Distress Eye Exam: Bilateral Eye: Normal Inspection Ears: Normal External Exam (Left), Normal TMs, Other (Left right has extensive surgery do appreciate the small amount of green discharge at the base of the canal) Nose: Normal Inspection, Normal Mucousa, No Blood Mouth/Throat: Normal Inspection, Normal Gums, Normal Lips, Normal Oropharynx, Normal Teeth Head: Atraumatic, Normocephalic Neck: Normal Inspection, Supple, Non-Tender, Full Range of Motion Respiratory/Chest: No Respiratory Distress, Lungs Clear, Normal Breath Sounds, No Accessory Muscle Use Cardiovascular: Regular Rate, Rhythm, No Murmur Course - Vital Signs Last Recorded V/S: Last Vital Signs Temp 98.7 F 12/27/17 20:42 Pulse 91 12/27/17 20:42 Resp 16 12/27/17 20:42 BP 130/66 12/27/17 20:42 Pulse Ox 99 12/27/17 20:42 Departure - Departure Time of Disposition: 21:30 Disposition: Home, Self-Care 01 Condition: Good Clinical Impression: Otitis media Qualifiers: Otitis media type: unspecified Chronicity: acute Qualified Code(s): H66.90 - Otitis media, unspecified, unspecified ear - Discharge Information Referrals: Guillermo Matos MD [Primary Care Provider] - Additional Instructions: Take full course of antibiotics, use Percocet as needed for pain control in combination with ibuprofen for baseline pain control, please keep your follow- up appointment with you ear nose and throat, call return to the emergency department with worsening of symptoms - Assessment/Plan Plan: Assessment Acuity = acute Site and laterality = otitis media Etiology = [probable bacterial cause Manifestations = none Location of injury = Home Lab values = none Plan Elected treat with Bactrim DS 1 tab by mouth twice a day 10 days, prescription written for Percocet 5/325 one tab by mouth 3 times a day when necessary total # 10 she does have follow-up appointment with her ENT in approximately 10 days This note was dictated using [email or web address] recognition software please call with any questions on syntax or baron.
== END 2017-12-27 21:42 | disposition home or self-care (01) ==
LOC: JP.ED 20:27
DX: H66.91 Otitis media, unspecified, right ear (principal); J45.909 Unspecified asthma, uncomplicated; E03.9 Hypothyroidism, unspecified; F17.210 Nicotine dependence, cigarettes, uncomplicated; Z88.0 Allergy status to penicillin; Z88.5 Allergy status to narcotic agent; Z91.013 Allergy to seafood; Z79.899 Other long term (current) drug therapy; Z90.49 Acquired absence of other specified parts of digestive tract
CPT/HCPCS: 99283

== ENCOUNTER 2017-12-29 11:47 | Emergency (ER) | payer MEDICAID ==
[2017-12-29 12:03] VITALS: BP 161/85
[2017-12-29] MEDS ORDERED: Sodium Chloride 0.9% 1,000 ML IV ONE (12:47)
[2017-12-29] MEDS ORDERED: cefTRIAXone 2 GM in Sodium Chloride 0.9% 50 ML IV ONE ×2 (12:48→13:15)
--- NOTE | 2017-12-29 12:49 | EDM.PDOC ---
ED HPI GENERAL MEDICAL PROBLEM - General Chief Complaint: Gastrointestinal Problem Stated Complaint: FLU SYMPTOMS/DEYDRATED?? Time Seen by Provider: 12/29/17 12:35 Source of Information: Reports: Patient, Family History Limitations: Reports: No Limitations - History of Present Illness INITIAL COMMENTS - FREE TEXT/NARRATIVE: 37-year-old female arrives with persistent diarrhea for the past several days, intermittent nausea and continues to have right ear discomfort. She was seen 2 days ago and started on Bactrim for an otitis media on the right side. She does have a problematic ear, involving surgery last year. No fevers or chills, she does have ear pain, headache, and generalized malaise. She has not seen any blood in the diarrhea, no significant abdominal pain. Onset: Gradual Worsens with: Reports: Medication (Antibiotic may be making diarrhea worse) Associated Symptoms: Reports: Malaise, Weakness. Denies: Chest Pain, Cough, Fever/Chills, Shortness of Breath Generalized Pain Score (Numeric/FACES): 8 - Related Data Allergies Allergy/AdvReac Type Severity Reaction Status Date / Time shellfish derived Allergy Severe Anaphylactic Verified 12/29/17 12:06 Shock kiwi Allergy Facial Verified 12/29/17 12:06 Swelling Penicillins Allergy Rash Verified 12/29/17 12:06 clonazepam [From Klonopin] AdvReac Hallucinati Verified 12/29/17 12:06 ons hydromorphone HCl AdvReac Nausea Verified 12/29/17 12:06 [From Dilaudid] varenicline tartrate AdvReac Seizure Verified 12/29/17 12:06 [From Chantix] Home Meds: Home Meds FLUoxetine [PROzac] 80 mg PO DAILY 06/03/14 [History] Albuterol [Ventolin HFA] 2 puff INH Q4H PRN 06/06/14 [History] LORazepam [Ativan] 1 mg PO Q4HR PRN 06/06/14 [History] Omeprazole [Prilosec] 40 mg PO DAILY 08/13/14 [History] Dextroamphetamine/Amphetamine [Adderall 20 mg Tablet] 30 mg PO 1400 07/09/15 [ History] lamoTRIgine [Lamotrigine] 150 mg PO DAILY 07/09/15 [History] Albuterol Sulfate 3 ml INH Q4HR PRN 05/07/16 [History] Amphetamine/Dextroamphetamine [Adderall XR] 40 mg PO WITHBREAKFAST cap.er 07/06 [Rx] Albuterol/Ipratropium [DuoNeb 3.0-0.5 MG/3 ML] 1 dose INH Q4H PRN 09/01/17 [ History] Levothyroxine 1 tab PO DAILY 12/29/17 [History] Sulfamethoxazole/Trimethoprim [Bactrim Ds Tablet] 1 tab PO BID 12/29/17 [History ] Past Medical History HEENT History: Reports: Hard of Hearing, Other (See Below) Other HEENT History: ear surgery to right Respiratory History: Reports: Asthma, Pneumonia, Recurrent Gastrointestinal History: Reports: Chronic Constipation, GERD Genitourinary History: Reports: Renal Calculus 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: Neurological History: Reports: Seizure Other Neuro History: pseudo-seizures r/t anxiety Psychiatric History: Reports: Anxiety, Depression, Psychosis, PTSD, Other (See Below) Other Psychiatric History: multiple personality disorder; 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" Endocrine/Metabolic History: Reports: Hypothyroidism, Obesity/BMI 30+, Vitamin D Deficiency Immunologic History: Reports: Other (See Below) Other Immunologic History: MRSA Oncologic (Cancer) History: Reports: None - Infectious Disease History Infectious Disease History: Reports: MRSA - Past Surgical History HEENT Surgical History: Reports: Adenoidectomy Other HEENT Surgeries/Procedures: 15 ear surgeries GI Surgical History: Reports: Appendectomy, Cholecystectomy, Colonoscopy, EGD, Other (See Below) Other GI Surgeries/Procedures: panniculectomy, drainage of abdominal abcess x's 2 Female Surgical History: Reports: Breast Biopsy, Endometrial Ablation, Hysterectomy Oncologic Surgical History: Reports: Lumpectomy Dermatological Surgical History: Reports: Skin Biopsy Social & Family History - Family History Family Medical History: Noncontributory HEENT: Reports: Macular Degeneration Cardiac: Reports: Hypertension Neurological: Reports: CVA Psychiatric: Reports: Anxiety, Depression Endocrine/Metabolic: Reports: Diabetes, type II Dermatologic: Reports: Psoriasis Oncologic: Reports: Colon - Tobacco Use Smoking Status *Q: Light Tobacco Smoker Years of Tobacco use: 15 Packs/Tins Daily: 0.5 Used Tobacco, but Quit: Yes Month Tobacco Last Used: july Second Hand Smoke Exposure: No - Caffeine Use Caffeine Use: Reports: Soda - Alcohol Use Days Per Week of Alcohol Use: 0 - Recreational Drug Use Recreational Drug Use: No - Living Situation & Occupation Living situation: Reports: with Significant Other Occupation: Employed ED ROS GENERAL - Review of Systems Review Of Systems: See Below Constitutional: Reports: Malaise, Weakness. Denies: Fever HEENT: Reports: Ear Pain. Denies: Throat Pain Respiratory: Denies: Shortness of Breath, Cough GI/Abdominal: Reports: Diarrhea, Nausea. Denies: Abdominal Pain, Vomiting : Reports: No Symptoms Musculoskeletal: Reports: Muscle Pain (Hurts all over) Skin: Denies: Rash Neurological: Reports: Headache ED EXAM, GENERAL - Physical Exam Exam: See Below Exam Limited By: No Limitations General Appearance: Alert, No Apparent Distress (Looks uncomfortable but not distressed. Vitals are basically normal) Ears: Other (Right ear canal is tender and full of exudative material, TM cannot be visualized and she is too uncomfortable to wash her ear.) Throat/Mouth: Normal Inspection Head: Atraumatic Respiratory/Chest: No Respiratory Distress, Lungs Clear Cardiovascular: Regular Rate, Rhythm GI/Abdominal: Normal Bowel Sounds, Soft, Non-Tender Neurological: Alert, Oriented Psychiatric: Depressed Mood, Flat Affect Skin Exam: Warm, Dry Course - Vital Signs Last Recorded V/S: Last Vital Signs Temp 98.8 F 12/29/17 12:03 Pulse 89 12/29/17 12:03 Resp 16 12/29/17 12:03 BP 161/85 H 12/29/17 12:03 Pulse Ox 96 12/29/17 12:03 - Orders/Labs/Meds Labs: Laboratory Tests 12/29/17 12/29/17 Range/Units 12:57 12:57 WBC 9.3 (4.5-11.0) K/uL RBC 5.17 (3.30-5.50) M/uL Hgb 14.5 (12.0-15.0) g/dL Hct 43.5 (36.0-48.0) % MCV 84 (80-98) fL MCH 28 (27-31) pg MCHC 33 (32-36) % Plt Count 380 (150-400) K/uL Neut % (Auto) 64 (36-66) % Lymph % (Auto) 26 (24-44) % [place] % (Auto) 9 H (2-6) % Eos % (Auto) 1 L (2-4) % Baso % (Auto) 1 (0-1) % Sodium 141 (140-148) mmol/L Potassium 3.5 L (3.6-5.2) mmol/L Chloride 105 (100-108) mmol/L Carbon Dioxide 25 (21-32) mmol/L Anion Gap 14.5 H (5.0-14.0) mmol/L BUN 7 (7-18) mg/dL Creatinine 0.9 (0.6-1.0) mg/dL Est Cr Clr Drug Dosing 75.16 mL/min Estimated GFR (MDRD) > 60 (>60) Glucose 97 (74-106) mg/dL Calcium 8.6 (8.5-10.1) mg/dL Meds: Medications Discontinued Medications Generic Name Dose Route Start Last Admin Trade Name Freq PRN Reason Stop Dose Admin Sodium Chloride 1,000 mls @ 1,000 mls/hr 12/29/17 12:47 12/29/17 13:14 Normal Saline IV 12/29/17 13:46 1,000 mls/hr .BOLUS ONE Administration Ceftriaxone Sodium 2 gm/ 50 mls @ 100 mls/hr 12/29/17 13:15 12/29/17 13:15 Sodium Chloride IV 12/29/17 13:44 100 mls/hr ONETIME ONE Administration Ibuprofen 600 mg 12/29/17 13:28 12/29/17 13:31 Motrin PO 12/29/17 13:29 600 mg ONETIME ONE Administration - Re-Assessments/Exams Free Text/Narrative Re-Assessment/Exam: 12/29/17 13:33 An IV was started, the patient was given a liter of normal saline, 600 mg of by mouth ibuprofen and 2 g Rocephin IV. CBC and BMP were obtained. Also a stool sample will be attempted to be collected for WBCs and C. difficile. 12/29/17 14:27 CBC was normal, the MP was normal other than a slightly low potassium at 3.4. She was unable to give a stool sample over the course of 3 hours. I did talk with [facility], he recommended her to come down so they can clean her ear out under a microscope and she is going to be able to make it down there tomorrow. Departure - Departure Time of Disposition: 14:49 Disposition: Home, Self-Care 01 Condition: Fair Clinical Impression: Otitis media Qualifiers: Otitis media type: suppurative Chronicity: acute Laterality: right Recurrence: recurrent Spontaneous tympanic membrane rupture: without spontaneous rupture Qualified Code(s): H66.004 - Acute suppurative otitis media without spontaneous rupture of ear drum, recurrent, right ear Diarrhea Qualifiers: Diarrhea type: unspecified type Qualified Code(s): R19.7 - Diarrhea, unspecified - Discharge Information Instructions: Diarrhea, Adult, [id number] Referrals: Guillermo Matos MD [Primary Care Provider] - Forms: ED Department Discharge Care Plan Goals: Stop Bactrim DS until recheck by your ENT physician. He will see you tomorrow for a procedure to clean out your ear. Continue with eardrops as prescribed.
[2017-12-29] MEDS ORDERED: Ibuprofen 600 MG Tab PO ONE (13:28)
== END 2017-12-29 14:49 | disposition home or self-care (01) ==
LOC: JP.ED 11:47
DX: H66.004 Acute suppurative otitis media without spontaneous rupture of ear drum, recurrent, right ear (principal); R19.7 Diarrhea, unspecified; Z87.891 Personal history of nicotine dependence; J45.909 Unspecified asthma, uncomplicated; K21.9 Gastro-esophageal reflux disease without esophagitis; F32.9 Major depressive disorder, single episode, unspecified; E03.9 Hypothyroidism, unspecified; Z79.899 Other long term (current) drug therapy; Z88.0 Allergy status to penicillin; Z88.5 Allergy status to narcotic agent; Z88.8 Allergy status to other drugs, medicaments and biological substances; Z91.018 Allergy to other foods; Z91.013 Allergy to seafood
CPT/HCPCS: 36415; 80048; 85025; 96365; 99284; A9270; J0696; J7040; J7050; 99282; J7030

== ENCOUNTER 2018-05-01 11:53 | Emergency (ER) | payer MEDICAID ==
[2018-05-01] MEDS ORDERED: Amphetamine/Dextroamphetamine Salts 10 MG Tab PO ONE (13:11)
--- NOTE | 2018-05-01 13:14 | EDM.PDOC ---
ED HPI GENERAL MEDICAL PROBLEM - General Chief Complaint: Behavioral/Psych Stated Complaint: EVEL Time Seen by Provider: 05/01/18 12:40 Source of Information: Reports: Patient History Limitations: Reports: No Limitations - History of Present Illness INITIAL COMMENTS - FREE TEXT/NARRATIVE: pt arrived with alot of depression. She has a number of stressors in her life at this time. 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 She needs a breast biopsy and this is making her very nervous. She also just lost her partner. \\She is feling very suicidal and she has a plan. She did see LIZZIE her medication regulator who feels she should have inpt care. Onset: Gradual Duration: Day(s):, Getting Worse, Other ( she nowhas a plan regarding the suicide. ) Associated Symptoms: Reports: No Other Symptoms, Other (pt is not sleeping. ) - Related Data Allergies Allergy/AdvReac Type Severity Reaction Status Date / Time shellfish derived Allergy Severe Anaphylactic Verified 05/01/18 13:05 Shock kiwi Allergy Facial Verified 05/01/18 13:05 Swelling Penicillins Allergy Rash Verified 05/01/18 13:05 clonazepam [From Klonopin] AdvReac Hallucinati Verified 05/01/18 13:05 ons hydromorphone HCl AdvReac Nausea Verified 05/01/18 13:05 [From Dilaudid] varenicline tartrate AdvReac Seizure Verified 05/01/18 13:05 [From Chantix] Home Meds: Home Meds FLUoxetine [PROzac] 80 mg PO DAILY 06/03/14 [History] Albuterol [Ventolin HFA] 2 puff INH Q4H PRN 06/06/14 [History] LORazepam [Ativan] 1 mg PO Q4HR PRN 06/06/14 [History] Omeprazole [Prilosec] 40 mg PO DAILY 08/13/14 [History] Dextroamphetamine/Amphetamine [Adderall 20 mg Tablet] 30 mg PO 1400 07/09/15 [ History] lamoTRIgine [Lamotrigine] 150 mg PO DAILY 07/09/15 [History] Albuterol Sulfate 3 ml INH Q4HR PRN 05/07/16 [History] Amphetamine/Dextroamphetamine [Adderall XR] 40 mg PO WITHBREAKFAST cap.er 07/06 [Rx] Albuterol/Ipratropium [DuoNeb 3.0-0.5 MG/3 ML] 1 dose INH Q4H PRN 09/01/17 [ History] Levothyroxine 1 tab PO DAILY 12/29/17 [History] Past Medical History HEENT History: Reports: Hard of Hearing, Other (See Below) Other HEENT History: ear surgery to right Respiratory History: Reports: Asthma, Pneumonia, Recurrent Gastrointestinal History: Reports: Chronic Constipation, GERD Genitourinary History: Reports: Renal Calculus 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: Neurological History: Reports: Seizure Other Neuro History: pseudo-seizures r/t anxiety Psychiatric History: Reports: Anxiety, Depression, Psychosis, PTSD, Other (See Below) Other Psychiatric History: multiple personality disorder; 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" Endocrine/Metabolic History: Reports: Hypothyroidism, Obesity/BMI 30+, Vitamin D Deficiency Immunologic History: Reports: Other (See Below) Other Immunologic History: MRSA Oncologic (Cancer) History: Reports: None - Infectious Disease History Infectious Disease History: Reports: MRSA - Past Surgical History HEENT Surgical History: Reports: Adenoidectomy Other HEENT Surgeries/Procedures: 15 ear surgeries GI Surgical History: Reports: Appendectomy, Cholecystectomy, Colonoscopy, EGD, Other (See Below) Other GI Surgeries/Procedures: panniculectomy, drainage of abdominal abcess x's 2 Female Surgical History: Reports: Breast Biopsy, Endometrial Ablation, Hysterectomy Oncologic Surgical History: Reports: Lumpectomy Dermatological Surgical History: Reports: Skin Biopsy Social & Family History - Family History Family Medical History: Noncontributory HEENT: Reports: Macular Degeneration Cardiac: Reports: Hypertension Neurological: Reports: CVA Psychiatric: Reports: Anxiety, Depression Endocrine/Metabolic: Reports: Diabetes, type II Dermatologic: Reports: Psoriasis Oncologic: Reports: Colon - Tobacco Use Smoking Status *Q: Current Every Day Smoker Years of Tobacco use: 20 Packs/Tins Daily: 0.5 Second Hand Smoke Exposure: No - Caffeine Use Caffeine Use: Reports: Soda - Recreational Drug Use Recreational Drug Use: No - Living Situation & Occupation Living situation: Reports: with Significant Other Occupation: Employed ED ROS GENERAL - Review of Systems Review Of Systems: See Below Constitutional: Reports: No Symptoms HEENT: Reports: No Symptoms Respiratory: Reports: No Symptoms Cardiovascular: Reports: No Symptoms Endocrine: Reports: No Symptoms GI/Abdominal: Reports: No Symptoms : Reports: No Symptoms Musculoskeletal: Reports: No Symptoms Skin: Reports: No Symptoms - Physical Exam Exam: See Below Text/Narrative:: pt is very depressed and she is trying to figure out what combination of meds that would actually cause . She has alot of issues going on in her life. Exam Limited By: No Limitations General Appearance: Alert, Other ( very depressed appeariing. ) Ears: Normal TMs Nose: Normal Inspection Throat/Mouth: Normal Inspection Head Exam: Atraumatic Neck: Normal Inspection Respiratory/Chest: No Respiratory Distress Cardiovascular: Regular Rate, Rhythm GI/Abdominal: Soft, Non-Tender (Female) Exam: Deferred Rectal (Female) Exam: Deferred Neuro Exam (Abbreviated): Alert, Oriented, Normal Cognition Back Exam: Normal Inspection Extremities: Normal Inspection Psychiatric: Depressed Mood, Tearful, Other ( suicidal. ) Course - Vital Signs Last Recorded V/S: Last Vital Signs Temp 36.9 C 05/01/18 12:24 Pulse 80 05/01/18 17:48 Resp 16 05/01/18 17:48 BP 138/82 05/01/18 17:48 Pulse Ox 98 05/01/18 17:48 - Orders/Labs/Meds Orders: Active Orders 24 hr Category Date Time Status DRUG SCREEN, URINE [URCHEM] Stat Lab 05/01/18 12:20 Ordered UA W/MICROSCOPIC [URIN] Urgent Lab 05/01/18 12:20 Ordered Labs: Laboratory Tests 05/01/18 05/01/18 05/01/18 Range/Units 12:20 12:20 12:29 WBC 9.4 (4.5-11.0) K/uL RBC 4.58 (3.30-5.50) M/uL Hgb 13.0 (12.0-15.0) g/dL Hct 39.3 (36.0-48.0) % MCV 86 (80-98) fL MCH 28 (27-31) pg MCHC 33 (32-36) % Plt Count 318 (150-400) K/uL Neut % (Auto) 61 (36-66) % Lymph % (Auto) 27 (24-44) % [place] % (Auto) 10 H (2-6) % Eos % (Auto) 1 L (2-4) % Baso % (Auto) 0 (0-1) % Sodium (140-148) mmol/L Potassium (3.6-5.2) mmol/L Chloride (100-108) mmol/L Carbon Dioxide (21-32) mmol/L Anion Gap (5.0-14.0) mmol/L BUN (7-18) mg/dL Creatinine (0.6-1.0) mg/dL Est Cr Clr Drug Dosing mL/min Estimated GFR (MDRD) (>60) Glucose (74-106) mg/dL Calcium (8.5-10.1) mg/dL Total Bilirubin (0.2-1.0) mg/dL AST (15-37) U/L ALT (12-78) U/L Alkaline Phosphatase (46-116) U/L Total Protein (6.4-8.2) g/dL Albumin (3.4-5.0) g/dL Globulin (2.3-3.5) g/dL Albumin/Globulin Ratio (1.2-2.2) Urine Color Yellow Urine Appearance Cloudy Urine pH 7.0 (4.5-8.0) Ur Specific [place] 1.010 (1.008-1.030) Urine Protein Negative (NEGATIVE) mg/dL Urine Glucose (UA) Normal (NEGATIVE) mg/dL Urine Ketones Negative (NEGATIVE) mg/dL Urine Occult Blood Negative (NEGATIVE) Urine Nitrite Negative (NEGATIVE) Urine Bilirubin Negative (NEGATIVE) Urine Urobilinogen Normal (NORMAL) mg/dL Ur Leukocyte Esterase Negative (NEGATIVE) Urine RBC Not seen (0-5) Urine WBC 0-5 (0-5) Ur Epithelial Cells Moderate Amorphous Sediment Many Urine Bacteria Moderate Urine Mucus Moderate Urine Opiates Screen Negative (NEGATIVE) Ur Oxycodone Screen Negative (NEGATIVE) Urine Methadone Screen Negative (NEGATIVE) Ur Propoxyphene Screen Negative (NEGATIVE) Ur Barbiturates Screen Negative (NEGATIVE) Ur Tricyclics Screen Negative (NEGATIVE) Ur Phencyclidine Scrn Negative (NEGATIVE) Ur Amphetamine Screen Positive H (NEGATIVE) U Methamphetamines Scrn Negative (NEGATIVE) Urine MDMA Screen Negative (NEGATIVE) U Benzodiazepines Scrn Negative (NEGATIVE) U Cocaine Metab Screen Negative (NEGATIVE) U Marijuana (THC) Screen Positive H (NEGATIVE) 05/01/18 Range/Units 12:29 WBC (4.5-11.0) K/uL RBC (3.30-5.50) M/uL Hgb (12.0-15.0) g/dL Hct (36.0-48.0) % MCV (80-98) fL MCH (27-31) pg MCHC (32-36) % Plt Count (150-400) K/uL Neut % (Auto) (36-66) % Lymph % (Auto) (24-44) % [place] % (Auto) (2-6) % Eos % (Auto) (2-4) % Baso % (Auto) (0-1) % Sodium 138 L (140-148) mmol/L Potassium 3.8 (3.6-5.2) mmol/L Chloride 103 (100-108) mmol/L Carbon Dioxide 28 (21-32) mmol/L Anion Gap 10.8 (5.0-14.0) mmol/L BUN 7 (7-18) mg/dL Creatinine 0.9 (0.6-1.0) mg/dL Est Cr Clr Drug Dosing 74.62 mL/min Estimated GFR (MDRD) > 60 (>60) Glucose 103 (74-106) mg/dL Calcium 7.7 L (8.5-10.1) mg/dL Total Bilirubin 0.4 D (0.2-1.0) mg/dL AST 16 (15-37) U/L ALT 28 (12-78) U/L Alkaline Phosphatase 84 (46-116) U/L Total Protein 6.6 (6.4-8.2) g/dL Albumin 3.2 L (3.4-5.0) g/dL Globulin 3.4 (2.3-3.5) g/dL Albumin/Globulin Ratio 0.9 L (1.2-2.2) Urine Color Urine Appearance Urine pH (4.5-8.0) Ur Specific [place] (1.008-1.030) Urine Protein (NEGATIVE) mg/dL Urine Glucose (UA) (NEGATIVE) mg/dL Urine Ketones (NEGATIVE) mg/dL Urine Occult Blood (NEGATIVE) Urine Nitrite (NEGATIVE) Urine Bilirubin (NEGATIVE) Urine Urobilinogen (NORMAL) mg/dL Ur Leukocyte Esterase (NEGATIVE) Urine RBC (0-5) Urine WBC (0-5) Ur Epithelial Cells Amorphous Sediment Urine Bacteria Urine Mucus Urine Opiates Screen (NEGATIVE) Ur Oxycodone Screen (NEGATIVE) Urine Methadone Screen (NEGATIVE) Ur Propoxyphene Screen (NEGATIVE) Ur Barbiturates Screen (NEGATIVE) Ur Tricyclics Screen (NEGATIVE) Ur Phencyclidine Scrn (NEGATIVE) Ur Amphetamine Screen (NEGATIVE) U Methamphetamines Scrn (NEGATIVE) Urine MDMA Screen (NEGATIVE) U Benzodiazepines Scrn (NEGATIVE) U Cocaine Metab Screen (NEGATIVE) U Marijuana (THC) Screen (NEGATIVE) Meds: Medications Discontinued Medications Generic Name Dose Route Start Last Admin Trade Name Erasmo PRN Reason Stop Dose Admin Amphetamine/Dextroamphetamine 30 mg 05/01/18 13:11 05/01/18 13:18 Adderall PO 05/01/18 13:12 30 mg ONETIME ONE Administration Lorazepam 1 mg 05/01/18 14:00 05/01/18 14:05 Ativan PO 05/01/18 14:01 1 mg ONETIME ONE Administration - Re-Assessments/Exams Free Text/Narrative Re-Assessment/Exam: 05/01/18 13:16 drug screen is positive for [place] no other street drugs, her lab work looks ok. 05/01/18 16:28 pt was accepted at [facility] Departure - Departure Time of Disposition: 18:29 Disposition: DC/Tfer to Psych Hosp/Unit 65 Clinical Impression: Depressive disorder, Suicidal ideation - Discharge Information Referrals: Guillermo Matos MD [Primary Care Provider] - Forms: ED Department Discharge Care Plan Goals: pt was accepted [facility] - My Orders Last 24 Hours: My Active Orders 05/01/18 12:20 DRUG SCREEN, URINE [URCHEM] Stat UA W/MICROSCOPIC [URIN] Urgent - Assessment/Plan Last 24 Hours: My Active Orders 05/01/18 12:20 DRUG SCREEN, URINE [URCHEM] Stat UA W/MICROSCOPIC [URIN] Urgent
[2018-05-01] MEDS ORDERED: LORazepam 1 MG Tab PO ONE (14:00)
[2018-05-01 17:49] VITALS: BP 138/82
== END 2018-05-01 18:53 ==
LOC: JP.ED 11:53
DX: F32.9 Major depressive disorder, single episode, unspecified (principal); R45.851 Suicidal ideations; K21.9 Gastro-esophageal reflux disease without esophagitis; E03.9 Hypothyroidism, unspecified; F17.210 Nicotine dependence, cigarettes, uncomplicated; Z91.013 Allergy to seafood; Z88.0 Allergy status to penicillin; Z88.5 Allergy status to narcotic agent; Z88.8 Allergy status to other drugs, medicaments and biological substances; Z91.018 Allergy to other foods; Z79.899 Other long term (current) drug therapy
CPT/HCPCS: 36415; 80053; 80305; 81001; 85025; 99285; A9270

== ENCOUNTER 2018-05-11 13:24 | Emergency (ER) | payer MEDICAID ==
--- NOTE | 2018-05-11 14:35 | EDM.PDOC ---
ED HPI GENERAL MEDICAL PROBLEM - General Chief Complaint: Neuro Symptoms/Deficits Stated Complaint: TOO MUCH MEDICATION Time Seen by Provider: 05/11/18 14:27 Source of Information: Reports: Patient History Limitations: Reports: No Limitations - History of Present Illness INITIAL COMMENTS - FREE TEXT/NARRATIVE: pt got out of [facility] yesterday and she had her litium increased to 600mg bid. She is feeling drunk at this time from the medication. She is not sick to her stomach or vomiting Onset: Today Duration: Hour(s): Location: Reports: Generalized Associated Symptoms: Reports: No Other Symptoms - Related Data Allergies Allergy/AdvReac Type Severity Reaction Status Date / Time shellfish derived Allergy Severe Anaphylactic Verified 05/11/18 13:51 Shock kiwi Allergy Facial Verified 05/11/18 13:51 Swelling Penicillins Allergy Rash Verified 05/11/18 13:51 clonazepam [From Klonopin] AdvReac Hallucinati Verified 05/11/18 13:51 ons hydromorphone HCl AdvReac Nausea Verified 05/11/18 13:51 [From Dilaudid] varenicline tartrate AdvReac Seizure Verified 05/11/18 13:51 [From Chantix] Home Meds: Home Meds FLUoxetine [PROzac] 80 mg PO DAILY 06/03/14 [History] Albuterol [Ventolin HFA] 2 puff INH Q4H PRN 06/06/14 [History] LORazepam [Ativan] 1 mg PO Q4HR PRN 06/06/14 [History] Omeprazole [Prilosec] 40 mg PO DAILY 08/13/14 [History] Dextroamphetamine/Amphetamine [Adderall 20 mg Tablet] 30 mg PO 1400 07/09/15 [ History] Albuterol Sulfate 3 ml INH Q4HR PRN 05/07/16 [History] Amphetamine/Dextroamphetamine [Adderall XR] 40 mg PO WITHBREAKFAST cap.er 07/06 [Rx] Albuterol/Ipratropium [DuoNeb 3.0-0.5 MG/3 ML] 1 dose INH Q4H PRN 09/01/17 [ History] Levothyroxine 1 tab PO DAILY 12/29/17 [History] [place] Carbonate 600 mg PO BID 05/11/18 [History] Past Medical History HEENT History: Reports: Hard of Hearing, Other (See Below) Other HEENT History: ear surgery to right Respiratory History: Reports: Asthma, Pneumonia, Recurrent Gastrointestinal History: Reports: Chronic Constipation, GERD Genitourinary History: Reports: Renal Calculus 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: Neurological History: Reports: Seizure Other Neuro History: pseudo-seizures r/t anxiety Psychiatric History: Reports: Anxiety, Depression, Psychosis, PTSD, Other (See Below) Other Psychiatric History: multiple personality disorder; 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" Endocrine/Metabolic History: Reports: Hypothyroidism, Obesity/BMI 30+, Vitamin D Deficiency Immunologic History: Reports: Other (See Below) Other Immunologic History: MRSA Oncologic (Cancer) History: Reports: None - Infectious Disease History Infectious Disease History: Reports: MRSA - Past Surgical History HEENT Surgical History: Reports: Adenoidectomy Other HEENT Surgeries/Procedures: 15 ear surgeries GI Surgical History: Reports: Appendectomy, Cholecystectomy, Colonoscopy, EGD, Other (See Below) Other GI Surgeries/Procedures: panniculectomy, drainage of abdominal abcess x's 2 Female Surgical History: Reports: Breast Biopsy, Endometrial Ablation, Hysterectomy Oncologic Surgical History: Reports: Lumpectomy Dermatological Surgical History: Reports: Skin Biopsy Social & Family History - Family History Family Medical History: Noncontributory HEENT: Reports: Macular Degeneration Cardiac: Reports: Hypertension Neurological: Reports: CVA Psychiatric: Reports: Anxiety, Depression Endocrine/Metabolic: Reports: Diabetes, type II Dermatologic: Reports: Psoriasis Oncologic: Reports: Colon - Tobacco Use Smoking Status *Q: Current Every Day Smoker Years of Tobacco use: 22 Packs/Tins Daily: 0.5 - Caffeine Use Caffeine Use: Reports: Soda - Recreational Drug Use Recreational Drug Use: No - Living Situation & Occupation Living situation: Reports: with Significant Other Occupation: Employed ED ROS GENERAL - Review of Systems Review Of Systems: See Below Constitutional: Reports: No Symptoms HEENT: Reports: No Symptoms Respiratory: Reports: No Symptoms Cardiovascular: Reports: No Symptoms Endocrine: Reports: No Symptoms GI/Abdominal: Reports: No Symptoms : Reports: No Symptoms Musculoskeletal: Reports: No Symptoms Skin: Reports: No Symptoms Neurological: Reports: Other (pt is very lethatgic since her lithium was increased to 600 mg bid. ) ED EXAM, NEURO - Physical Exam Exam: See Below Text/Narrative:: pt was discharged from [facility] a few hours ago and her lithium was increased to 600mg bid. She had been on 300mg in am and 600 mg in the pm. Exam Limited By: No Limitations General Appearance: Alert, No Apparent Distress Ears: Normal TMs Nose: Normal Inspection Throat/Mouth: Normal Inspection Head Exam: Atraumatic Neck: Normal Inspection Respiratory/Chest: No Respiratory Distress Cardiovascular: Regular Rate, Rhythm GI/Abdominal: Soft, Non-Tender (Female) Exam: Deferred Rectal (Female) Exam: Deferred Neurological: Alert, Oriented x 3, Other (pt ids quite lethargic, ) Back Exam: Normal Inspection Extremities: Normal Inspection Course - Vital Signs Last Recorded V/S: Last Vital Signs Temp 36.7 C 05/11/18 13:49 Pulse 93 05/11/18 13:49 Resp 16 05/11/18 13:49 BP 111/81 05/11/18 13:49 Pulse Ox 99 05/11/18 13:49 - Orders/Labs/Meds Labs: Laboratory Tests 05/11/18 05/11/18 05/11/18 Range/Units 14:15 14:26 14:26 WBC 8.5 (4.5-11.0) K/uL RBC 4.76 (3.30-5.50) M/uL Hgb 13.8 (12.0-15.0) g/dL Hct 40.6 (36.0-48.0) % MCV 85 (80-98) fL MCH 29 (27-31) pg MCHC 34 (32-36) % Plt Count 364 (150-400) K/uL Neut % (Auto) 64 (36-66) % Lymph % (Auto) 24 (24-44) % [place] % (Auto) 11 H (2-6) % Eos % (Auto) 2 (2-4) % Baso % (Auto) 1 (0-1) % Sodium 137 L (140-148) mmol/L Potassium 3.6 (3.6-5.2) mmol/L Chloride 101 (100-108) mmol/L Carbon Dioxide 28 (21-32) mmol/L Anion Gap 11.6 (5.0-14.0) mmol/L BUN 13 D (7-18) mg/dL Creatinine 1.0 (0.6-1.0) mg/dL Est Cr Clr Drug Dosing TNP Estimated GFR (MDRD) > 60 (>60) Glucose 106 (74-106) mg/dL Calcium 8.7 (8.5-10.1) mg/dL [place] 0.9 (0.6-1.2) mmol/L Departure - Departure Time of Disposition: 14:35 Disposition: Home, Self-Care 01 Condition: Fair Clinical Impression: [place] adverse reaction - Discharge Information Instructions: [place] Toxicity, [place] tablets or capsules Referrals: Guillermo Matos MD [Primary Care Provider] - Forms: ED Department Discharge Care Plan Goals: push fluids, No lithium tonight. Resume tomorrow 300mg and then 600mg at hs. If pt is excessively sleepy in the am hold the 300mg in the am. -- but give the 600mg at hs. continue other meds. . On sat definitely resume the lithium 300mg qam and 600mg hs. Will norify of lithium level.
[2018-05-11 14:36] VITALS: BP 111/81
== END 2018-05-11 14:53 | disposition home or self-care (01) ==
LOC: JP.ED 13:24
DX: R53.83 Other fatigue (principal); T43.595A Adverse effect of other antipsychotics and neuroleptics, initial encounter; J45.909 Unspecified asthma, uncomplicated; F41.9 Anxiety disorder, unspecified; F32.9 Major depressive disorder, single episode, unspecified; K21.9 Gastro-esophageal reflux disease without esophagitis; E03.9 Hypothyroidism, unspecified; F17.210 Nicotine dependence, cigarettes, uncomplicated; Z91.018 Allergy to other foods; Z91.013 Allergy to seafood; Z88.0 Allergy status to penicillin; Z88.6 Allergy status to analgesic agent; Z88.8 Allergy status to other drugs, medicaments and biological substances; Z79.899 Other long term (current) drug therapy
CPT/HCPCS: 36415; 80048; 80178; 85025; 99284

== ENCOUNTER 2018-05-16 16:37 | Emergency (ER) | payer MEDICAID ==
[2018-05-16 18:32] VITALS: BP 128/58
--- NOTE | 2018-05-16 19:10 | EDM.PDOC ---
ED HPI GENERAL MEDICAL PROBLEM - General Chief Complaint: Genitourinary Problem Stated Complaint: KIDNEY PAIN/CHECK LITHIUM LEVELS Time Seen by Provider: 05/16/18 18:44 Source of Information: Reports: Patient, Old Records, RN Notes Reviewed History Limitations: Reports: No Limitations - History of Present Illness INITIAL COMMENTS - FREE TEXT/NARRATIVE: Here with a friend Chief complaint Back pain, lethargic History of present illness 37-year-old female with major depression, recently discharged from [facility] Has been taking lithium which she finds makes her excessively lethargic. Did talk to the psychiatrist who recommended that she stop it. However she's concerned about toxicity so recommended she come in to have her kidneys checked. Patient also reports some back pain bilaterally in the mid back. No dysuria or frequency She's been ambulating without difficulty and is hungry. Not currently employed Lives with a roommate Has not taken any anti-inflammatories No fever chills or cold symptoms No difficulty breathing Headache Pain Score (Numeric/FACES): 7 - Related Data Allergies Allergy/AdvReac Type Severity Reaction Status Date / Time shellfish derived Allergy Severe Anaphylactic Verified 05/11/18 13:51 Shock kiwi Allergy Facial Verified 05/11/18 13:51 Swelling Penicillins Allergy Rash Verified 05/11/18 13:51 clonazepam [From Klonopin] AdvReac Hallucinati Verified 05/11/18 13:51 ons hydromorphone HCl AdvReac Nausea Verified 05/11/18 13:51 [From Dilaudid] varenicline tartrate AdvReac Seizure Verified 05/11/18 13:51 [From Chantix] Home Meds: Home Meds FLUoxetine [PROzac] 80 mg PO DAILY 06/03/14 [History] Albuterol [Ventolin HFA] 2 puff INH Q4H PRN 06/06/14 [History] LORazepam [Ativan] 1 mg PO Q4HR PRN 06/06/14 [History] Omeprazole [Prilosec] 40 mg PO DAILY 08/13/14 [History] Dextroamphetamine/Amphetamine [Adderall 20 mg Tablet] 30 mg PO 1400 07/09/15 [ History] Albuterol Sulfate 3 ml INH Q4HR PRN 05/07/16 [History] Amphetamine/Dextroamphetamine [Adderall XR] 40 mg PO WITHBREAKFAST cap.er 07/06 [Rx] Albuterol/Ipratropium [DuoNeb 3.0-0.5 MG/3 ML] 1 dose INH Q4H PRN 09/01/17 [ History] Levothyroxine 1 tab PO DAILY 12/29/17 [History] [place] Carbonate 300 mg PO BID 05/11/18 [History] Past Medical History HEENT History: Reports: Hard of Hearing, Other (See Below) Other HEENT History: ear surgery to right Respiratory History: Reports: Asthma, Pneumonia, Recurrent Gastrointestinal History: Reports: Chronic Constipation, GERD Genitourinary History: Reports: Renal Calculus 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: Neurological History: Reports: Seizure Other Neuro History: pseudo-seizures r/t anxiety Psychiatric History: Reports: Anxiety, Depression, Psychosis, PTSD, Other (See Below) Other Psychiatric History: multiple personality disorder; 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" Endocrine/Metabolic History: Reports: Hypothyroidism, Obesity/BMI 30+, Vitamin D Deficiency Immunologic History: Reports: Other (See Below) Other Immunologic History: MRSA Oncologic (Cancer) History: Reports: None - Infectious Disease History Infectious Disease History: Reports: Chicken Pox - Past Surgical History HEENT Surgical History: Reports: Adenoidectomy Other HEENT Surgeries/Procedures: 15 ear surgeries GI Surgical History: Reports: Appendectomy, Cholecystectomy, Colonoscopy, EGD, Other (See Below) Other GI Surgeries/Procedures: panniculectomy, drainage of abdominal abcess x's 2 Female Surgical History: Reports: Breast Biopsy, Endometrial Ablation, Hysterectomy Oncologic Surgical History: Reports: Lumpectomy Dermatological Surgical History: Reports: Skin Biopsy Social & Family History - Family History Family Medical History: Noncontributory HEENT: Reports: Macular Degeneration Cardiac: Reports: Hypertension Neurological: Reports: CVA Psychiatric: Reports: Anxiety, Depression Endocrine/Metabolic: Reports: Diabetes, type II Dermatologic: Reports: Psoriasis Oncologic: Reports: Colon - Tobacco Use Smoking Status *Q: Current Every Day Smoker Years of Tobacco use: 20 Packs/Tins Daily: 0.5 Used Tobacco, but Quit: No Second Hand Smoke Exposure: Yes - Caffeine Use Caffeine Use: Reports: Soda - Alcohol Use Days Per Week of Alcohol Use: 0 - Recreational Drug Use Recreational Drug Use: No - Living Situation & Occupation Living situation: Reports: with Significant Other Occupation: Employed ED ROS GENERAL - Review of Systems Review Of Systems: See Below Constitutional: Reports: Malaise. Denies: Fever, Chills, Diaphoresis, Decreased Appetite HEENT: Reports: No Symptoms (admission date thank you very much) Respiratory: Reports: No Symptoms (thank you very much lumbarleft "") Cardiovascular: Reports: No Symptoms (Trouble) GI/Abdominal: Reports: No Symptoms : Reports: No Symptoms Musculoskeletal: Reports: Back Pain Skin: Reports: No Symptoms Neurological: Reports: No Symptoms Psychiatric: Reports: Mood Lability ( recent depression, better now) Immunologic: Reports: No Symptoms ED EXAM, GENERAL - Physical Exam Exam: See Below Exam Limited By: No Limitations General Appearance: Alert, No Apparent Distress, Other (appears well, overweight , vital signs normal) Eye Exam: Bilateral Eye: EOMI, Normal Inspection Nose: Normal Inspection Throat/Mouth: Normal Inspection Head: Atraumatic, Normocephalic Neck: Normal Inspection Respiratory/Chest: No Respiratory Distress, No Accessory Muscle Use Cardiovascular: Normal Peripheral Pulses, Regular Rate, Rhythm Back Exam: Normal Inspection Extremities: Normal Inspection Neurological: Alert, Oriented, No Motor/Sensory Deficits Psychiatric: Normal Affect, Normal Mood Skin Exam: Warm, Dry, Normal Color, No Rash Course - Vital Signs Last Recorded V/S: Last Vital Signs Temp 36.8 C 05/16/18 18:44 Pulse 76 05/16/18 18:44 Resp 18 05/16/18 18:44 BP 128/58 L 05/16/18 18:44 Pulse Ox 18 L 05/16/18 18:44 - Orders/Labs/Meds Orders: Active Orders 24 hr Category Date Time Status LITHIUM (ESKALITH(R)), SERUM Routine Lab 05/16/18 19:18 Received UA W/MICROSCOPIC [URIN] Stat Lab 05/16/18 19:02 Ordered Labs: Laboratory Tests 05/16/18 05/16/18 Range/Units 19:02 19:02 Sodium 140 (140-148) mmol/L Potassium 3.9 (3.6-5.2) mmol/L Chloride 103 (100-108) mmol/L Carbon Dioxide 29 (21-32) mmol/L Anion Gap 8.0 (5.0-14.0) mmol/L BUN 8 (7-18) mg/dL Creatinine 1.0 (0.6-1.0) mg/dL Est Cr Clr Drug Dosing 67.16 mL/min Estimated GFR (MDRD) > 60 (>60) Glucose 103 (74-106) mg/dL Calcium 8.4 L (8.5-10.1) mg/dL Urine Color Yellow Urine Appearance Slightly cloudy Urine pH 6.0 (4.5-8.0) Ur Specific [place] 1.010 (1.008-1.030) Urine Protein Negative (NEGATIVE) mg/dL Urine Glucose (UA) Normal (NEGATIVE) mg/dL Urine Ketones Negative (NEGATIVE) mg/dL Urine Occult Blood Negative (NEGATIVE) Urine Nitrite Negative (NEGATIVE) Urine Bilirubin Negative (NEGATIVE) Urine Urobilinogen Normal (NORMAL) mg/dL Ur Leukocyte Esterase Negative (NEGATIVE) Urine RBC 0-5 (0-5) Urine WBC 0-5 (0-5) Ur Epithelial Cells Many Amorphous Sediment Not seen Urine Bacteria Rare Urine Mucus Not seen - Re-Assessments/Exams Free Text/Narrative Re-Assessment/Exam: 05/16/18 19:09 37-year-old female with recent psychiatric Admission for depression, very lethargic which she attributes to lithium. Also has some back pain Concerns about possible toxicity of the lithium. Will send out the lithium level Hold lithium until the level comes back, psychiatrist actually is recommended that she stop the lithium and has changed her to Risperdal which she hopes to start either today or tomorrow. If she doesn't make to the pharmacy in time, she still is quite lethargic so I would recommend holding off Risperdal until tomorrow may use lorazepam which he has at home tonight if she finds that she needs to take some me to help her sleep. She does not take the lorazepam regularly. She is on fluoxetine. Urinalysis metabolic profile and lithium ordered 05/16/18 20:04 urinalysis and basic metabolic profile are normal Erythematous pending May be discharged and may start her new medication Departure - Departure Time of Disposition: 20:04 Disposition: Home, Self-Care 01 Condition: Good Clinical Impression: Medication side effects - Discharge Information Referrals: Guillermo Matos MD [Primary Care Provider] - Forms: ED Department Discharge Additional Instructions: You may stop your lithium and start your Risperdal as recommended by the psychiatrist. Your kidney function is normal. If there is any elevation your lithium you'll be notified. However it would be thakur to avoid ibuprofen naproxen and aspirin for the next 2-3 days until the lithium is out of your system. - My Orders Last 24 Hours: My Active Orders 05/16/18 19:02 UA W/MICROSCOPIC [URIN] Stat 05/16/18 19:18 LITHIUM (ESKALITH(R)), SERUM Routine - Assessment/Plan Last 24 Hours: My Active Orders 05/16/18 19:02 UA W/MICROSCOPIC [URIN] Stat 05/16/18 19:18 LITHIUM (ESKALITH(R)), SERUM Routine
== END 2018-05-16 20:28 | disposition home or self-care (01) ==
LOC: JP.ED 16:37
DX: M54.9 Dorsalgia, unspecified (principal); T43.595A Adverse effect of other antipsychotics and neuroleptics, initial encounter; J45.909 Unspecified asthma, uncomplicated; E03.9 Hypothyroidism, unspecified; Z87.01 Personal history of pneumonia (recurrent); Z87.442 Personal history of urinary calculi; Z88.0 Allergy status to penicillin; Z88.8 Allergy status to other drugs, medicaments and biological substances; Z79.899 Other long term (current) drug therapy; F43.10 Post-traumatic stress disorder, unspecified; F32.9 Major depressive disorder, single episode, unspecified
CPT/HCPCS: 36415; 80048; 80178; 81001; 99283; 99284

== ENCOUNTER 2019-02-27 16:37 | Emergency (ER) | payer MEDICAID ==
[2019-02-27 16:58] VITALS: BP 159/72
--- NOTE | 2019-02-27 17:21 | EDM.PDOC ---
ED HPI GENERAL MEDICAL PROBLEM - General Chief Complaint: ENT Problem Stated Complaint: EARACHE Time Seen by Provider: 02/27/19 17:21 Source of Information: Reports: Patient History Limitations: Reports: No Limitations - History of Present Illness INITIAL COMMENTS - FREE TEXT/NARRATIVE: pt has had multiple surgeries on the left ear. She has had multiple infectionsin the ear. She has started having alot of pain in the ear in the last 24 hours. She has gotten alot of thick drainage from the ear. Onset: Other (started yesterday) Duration: Hour(s): Location: Reports: Face Right Ear Pain Score (Numeric/FACES): 8 - Related Data Allergies Allergy/AdvReac Type Severity Reaction Status Date / Time shellfish derived Allergy Severe Anaphylactic Verified 02/27/19 17:05 Shock kiwi Allergy Facial Verified 02/27/19 17:05 Swelling Penicillins Allergy Rash Verified 02/27/19 17:05 clonazepam [From Klonopin] AdvReac Hallucinati Verified 02/27/19 17:05 ons hydromorphone HCl AdvReac Nausea Verified 02/27/19 17:05 [From Dilaudid] varenicline tartrate AdvReac Seizure Verified 02/27/19 17:05 [From Chantix] Home Meds: Home Meds FLUoxetine [PROzac] 80 mg PO DAILY 06/03/14 [History] Albuterol [Ventolin HFA] 2 puff INH Q4H PRN 06/06/14 [History] LORazepam [Ativan] 1 mg PO Q4HR PRN 06/06/14 [History] Omeprazole [Prilosec] 40 mg PO DAILY 08/13/14 [History] Dextroamphetamine/Amphetamine [Adderall 20 mg Tablet] 30 mg PO 1400 07/09/15 [ History] Albuterol Sulfate 3 ml INH Q4HR PRN 05/07/16 [History] Amphetamine/Dextroamphetamine [Adderall XR] 40 mg PO WITHBREAKFAST cap.er 07/06 [Rx] Albuterol/Ipratropium [DuoNeb 3.0-0.5 MG/3 ML] 1 dose INH Q4H PRN 09/01/17 [ History] Levothyroxine 1 tab PO DAILY 12/29/17 [History] Past Medical History HEENT History: Reports: Hard of Hearing, Other (See Below) Other HEENT History: ear surgery to right Respiratory History: Reports: Asthma, Pneumonia, Recurrent Gastrointestinal History: Reports: Chronic Constipation, GERD Genitourinary History: Reports: Renal Calculus 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: Neurological History: Reports: Seizure Other Neuro History: pseudo-seizures r/t anxiety Psychiatric History: Reports: Anxiety, Depression, Psychosis, PTSD, Suicide Attempt, Suicidal Ideation, Other (See Below) Other Psychiatric History: multiple personality disorder; 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" Endocrine/Metabolic History: Reports: Hypothyroidism, Obesity/BMI 30+, Vitamin D Deficiency Immunologic History: Reports: Other (See Below) Other Immunologic History: MRSA Oncologic (Cancer) History: Reports: None - Infectious Disease History Infectious Disease History: Reports: Chicken Pox - Past Surgical History HEENT Surgical History: Reports: Adenoidectomy Other HEENT Surgeries/Procedures: 15 ear surgeries GI Surgical History: Reports: Appendectomy, Cholecystectomy, Colonoscopy, EGD, Other (See Below) Other GI Surgeries/Procedures: panniculectomy, drainage of abdominal abcess x's 2 Female Surgical History: Reports: Breast Biopsy, Endometrial Ablation, Hysterectomy Oncologic Surgical History: Reports: Lumpectomy Dermatological Surgical History: Reports: Skin Biopsy Social & Family History - Family History Family Medical History: Noncontributory HEENT: Reports: Macular Degeneration Cardiac: Reports: Hypertension Neurological: Reports: CVA Psychiatric: Reports: Anxiety, Depression Endocrine/Metabolic: Reports: Diabetes, type II Dermatologic: Reports: Psoriasis Oncologic: Reports: Colon - Tobacco Use Smoking Status *Q: Former Smoker Used Tobacco, but Quit: Yes Month/Year Tobacco Last Used: Dec 2018 - Caffeine Use Caffeine Use: Reports: Soda - Recreational Drug Use Recreational Drug Use: No - Living Situation & Occupation Living situation: Reports: with Significant Other Occupation: Employed ED ROS ENT - Review of Systems Review Of Systems: See Below Constitutional: Reports: No Symptoms HEENT: Reports: Ear Discharge, Ear Pain Respiratory: Reports: No Symptoms Cardiovascular: Reports: No Symptoms Endocrine: Reports: No Symptoms GI/Abdominal: Reports: No Symptoms : Reports: No Symptoms Musculoskeletal: Reports: No Symptoms ED EXAM, ENT - Physical Exam Exam: See Below Text/Narrative:: pt arrived with severe pain in the rt ear. She has never had problems with her left ear. Exam Limited By: No Limitations General Appearance: Alert Ears: Other (left ear reveals a suzanne tm. Her rt ear has had multiple surgeries. She has a great deal of scarring. She showed me where this was cleaned out and alot if purulent material was removed. She has some glandular swelling below the rt ear. ) Mouth/Throat: Normal Inspection Head: Atraumatic Course - Vital Signs Last Recorded V/S: Last Vital Signs Temp 36.4 C 02/27/19 17:04 Pulse 91 02/27/19 17:04 Resp 16 02/27/19 17:04 BP 159/72 H 02/27/19 17:04 Pulse Ox 98 02/27/19 17:04 Departure - Departure Time of Disposition: 17:21 Disposition: Home, Self-Care 01 Condition: Fair Clinical Impression: Otitis externa, Otitis media - Discharge Information Referrals: Guillermo Matos MD [Primary Care Provider] - Forms: ED Department Discharge Care Plan Goals: clindomycin 300g tid, corticosporin eardrops t1-2 drops tid, norco 5/325 q8h prn for pain #8
== END 2019-02-27 17:31 | disposition home or self-care (01) ==
LOC: JP.ED 16:37
DX: H60.92 Unspecified otitis externa, left ear (principal); H66.92 Otitis media, unspecified, left ear; J45.909 Unspecified asthma, uncomplicated; F41.9 Anxiety disorder, unspecified; F32.9 Major depressive disorder, single episode, unspecified; E03.9 Hypothyroidism, unspecified; Z91.013 Allergy to seafood; Z88.0 Allergy status to penicillin; Z79.899 Other long term (current) drug therapy; Z87.891 Personal history of nicotine dependence
CPT/HCPCS: 99282; 99283

== ENCOUNTER 2019-08-04 00:47 | Emergency (ER) | payer MEDICAID ==
--- NOTE | 2019-08-04 01:26 | EDM.PDOC ---
<Eva Sethi - Last Filed: 08/04/19 07:05> ED HPI GENERAL MEDICAL PROBLEM - General Chief Complaint: Abdominal Pain Stated Complaint: ADM PAIN RIGHT SIDE Time Seen by Provider: 08/04/19 01:25 Source of Information: Reports: Patient History Limitations: Reports: No Limitations - History of Present Illness INITIAL COMMENTS - FREE TEXT/NARRATIVE: pt arrived feeling like she has a sebastián horse in her abdoman. She has very severe pain. She has had a bladder asusopenion in the past. Onset: Today Duration: Hour(s): Location: Reports: Abdomen Associated Symptoms: Reports: No Other Symptoms Lower Abdomen Pain Score (Numeric/FACES): 10 - Related Data Allergies Allergy/AdvReac Type Severity Reaction Status Date / Time shellfish derived Allergy Severe Anaphylactic Verified 08/04/19 01:17 Shock kiwi Allergy Facial Verified 08/04/19 01:17 Swelling Penicillins Allergy Rash Verified 08/04/19 01:17 clonazepam [From Klonopin] AdvReac Hallucinati Verified 08/04/19 01:17 ons hydromorphone HCl AdvReac Nausea Verified 08/04/19 01:17 [From Dilaudid] varenicline tartrate AdvReac Seizure Verified 08/04/19 01:17 [From Chantix] Home Meds: Home Meds FLUoxetine [PROzac] 80 mg PO DAILY 06/03/14 [History] Albuterol [Ventolin HFA] 2 puff INH Q4H PRN 06/06/14 [History] LORazepam [Ativan] 1 mg PO Q4HR PRN 06/06/14 [History] Omeprazole [Prilosec] 40 mg PO DAILY 08/13/14 [History] Dextroamphetamine/Amphetamine [Adderall 20 mg Tablet] 30 mg PO 1400 07/09/15 [ History] Albuterol Sulfate 3 ml INH Q4HR PRN 05/07/16 [History] Amphetamine/Dextroamphetamine [Adderall XR] 40 mg PO WITHBREAKFAST cap.er 07/06 [Rx] Albuterol/Ipratropium [DuoNeb 3.0-0.5 MG/3 ML] 1 dose INH Q4H PRN 09/01/17 [ History] Levothyroxine 1 tab PO DAILY 12/29/17 [History] lamoTRIgine [Lamictal] 100 mg PO DAILY 08/04/19 [History] Past Medical History HEENT History: Reports: Hard of Hearing, Other (See Below) Other HEENT History: ear surgery to right Respiratory History: Reports: Asthma, Pneumonia, Recurrent Gastrointestinal History: Reports: Chronic Constipation, GERD Genitourinary History: Reports: Renal Calculus [employer] History: Reports: Neurological History: Reports: Seizure Other Neuro History: pseudo-seizures r/t anxiety Psychiatric History: Reports: Anxiety, Depression, Psychosis, PTSD, Suicide Attempt, Suicidal Ideation, Other (See Below) Other Psychiatric History: multiple personality disorder; 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" Endocrine/Metabolic History: Reports: Hypothyroidism, Obesity/BMI 30+, Vitamin D Deficiency Immunologic History: Reports: Other (See Below) Other Immunologic History: MRSA Oncologic (Cancer) History: Reports: None - Infectious Disease History Infectious Disease History: Reports: Chicken Pox - Past Surgical History Head Surgeries/Procedures: Reports: None HEENT Surgical History: Reports: Adenoidectomy Other HEENT Surgeries/Procedures: 15 ear surgeries GI Surgical History: Reports: Appendectomy, Cholecystectomy, Colonoscopy, EGD, Other (See Below) Other GI Surgeries/Procedures: panniculectomy, drainage of abdominal abcess x's 2 Female Surgical History: Reports: Breast Biopsy, Endometrial Ablation, Hysterectomy Endocrine Surgical History: Reports: None Neurological Surgical History: Reports: None Oncologic Surgical History: Reports: Lumpectomy Dermatological Surgical History: Reports: Skin Biopsy Social & Family History - Family History Family Medical History: Noncontributory HEENT: Reports: Macular Degeneration Cardiac: Reports: Hypertension Neurological: Reports: CVA Psychiatric: Reports: Anxiety, Depression Endocrine/Metabolic: Reports: Diabetes, type II Dermatologic: Reports: Psoriasis Oncologic: Reports: Colon - Tobacco Use Smoking Status *Q: Current Every Day Smoker Years of Tobacco use: 20 Packs/Tins Daily: 0.5 - Caffeine Use Caffeine Use: Reports: Soda - Recreational Drug Use Recreational Drug Use: No - Living Situation & Occupation Living situation: Reports: with Significant Other Occupation: Employed ED ROS GENERAL - Review of Systems Review Of Systems: See Below Constitutional: Reports: No Symptoms HEENT: Reports: No Symptoms Respiratory: Reports: No Symptoms Cardiovascular: Reports: No Symptoms Endocrine: Reports: No Symptoms GI/Abdominal: Reports: Abdominal Pain, Other (pt has severe rt sided abdomanal pain. She feels like this is a sebastián horse and wonders if it is related to her bladder suaspenion. ) : Reports: No Symptoms, Frequency Musculoskeletal: Reports: No Symptoms Skin: Reports: No Symptoms Neurological: Reports: No Symptoms ED EXAM, GI/ABD - Physical Exam Exam: See Below Text/Narrative:: pt arrived with severe abdomanal pain lik a spasm in the rt lower abdoman. She did have a normal bm today. Her urine is not remarkable. Exam Limited By: No Limitations General Appearance: Alert, Anxious, Severe Distress Ears: Normal TMs Nose: Normal Inspection Throat/Mouth: Normal Inspection Head: Atraumatic Neck: Normal Inspection Respiratory/Chest: No Respiratory Distress Cardiovascular: Regular Rate, Rhythm GI/Abdominal Exam: Tender, Other (pt hs tender ness in the rt lower abdoman. ) (Female) Exam: Deferred Rectal (Female) Exam: Deferred Back Exam: Normal Inspection Extremities: Normal Inspection Neurological: Alert, Oriented, Normal Cognition Psychiatric: Anxious, Other (difficult for her to relax) Course - Vital Signs Last Recorded V/S: Last Vital Signs Temp 96.8 F 08/04/19 01:11 Pulse 77 08/04/19 08:37 Resp 16 08/04/19 08:37 BP 136/66 08/04/19 08:37 Pulse Ox 97 08/04/19 08:37 - Orders/Labs/Meds Orders: Active Orders 24 hr Category Date Time Status CULTURE URINE [RM] Stat Lab 08/04/19 03:00 Received Saline Lock Insert [OM.PC] Routine Oth 08/04/19 01:33 Ordered Labs: Laboratory Tests 08/04/19 08/04/19 08/04/19 Range/Units 01:30 01:30 01:30 WBC 9.9 (4.5-11.0) K/uL RBC 5.00 (3.30-5.50) M/uL Hgb 14.4 (12.0-15.0) g/dL Hct 43.1 (36.0-48.0) % MCV 86 (80-98) fL MCH 29 (27-31) pg MCHC 33 (32-36) % Plt Count 389 (150-400) K/uL Neut % (Auto) 53 (36-66) % Lymph % (Auto) 34 (24-44) % [place] % (Auto) 13 H (2-6) % Eos % (Auto) 1 L (2-4) % Baso % (Auto) 0 (0-1) % Sodium 137 L (140-148) mmol/L Potassium 3.8 (3.6-5.2) mmol/L Chloride 102 (100-108) mmol/L Carbon Dioxide 25 (21-32) mmol/L Anion Gap 13.8 (5.0-14.0) mmol/L BUN 9 (7-18) mg/dL Creatinine 0.8 (0.6-1.0) mg/dL Est Cr Clr Drug Dosing 83.14 mL/min Estimated GFR (MDRD) > 60 (>60) Glucose 109 H (74-106) mg/dL Calcium 8.5 (8.5-10.1) mg/dL Total Bilirubin 0.4 (0.2-1.0) mg/dL AST 16 (15-37) U/L ALT 26 (12-78) U/L Alkaline Phosphatase 92 (46-116) U/L C-Reactive Protein 0.47 H (0.0-0.3) mg/dL Total Protein 7.3 (6.4-8.2) g/dL Albumin 3.7 (3.4-5.0) g/dL Globulin 3.6 H (2.3-3.5) g/dL Albumin/Globulin Ratio 1.0 L (1.2-2.2) Urine Color (YELLOW) Urine Appearance (CLEAR) Urine pH (5.0-8.0) Ur Specific [place] (1.008-1.030) Urine Protein (NEGATIVE) mg/dL Urine Glucose (UA) (NEGATIVE) mg/dL Urine Ketones (NEGATIVE) mg/dL Urine Occult Blood (NEGATIVE) Urine Nitrite (NEGATIVE) Urine Bilirubin (NEGATIVE) Urine Urobilinogen (0.2-1.0) EU/dL Ur Leukocyte Esterase (NEGATIVE) Urine RBC (0-5) Urine WBC (0-5) Ur Epithelial Cells Amorphous Sediment Urine Bacteria Urine Mucus 08/04/19 Range/Units 02:58 WBC (4.5-11.0) K/uL RBC (3.30-5.50) M/uL Hgb (12.0-15.0) g/dL Hct (36.0-48.0) % MCV (80-98) fL MCH (27-31) pg MCHC (32-36) % Plt Count (150-400) K/uL Neut % (Auto) (36-66) % Lymph % (Auto) (24-44) % [place] % (Auto) (2-6) % Eos % (Auto) (2-4) % Baso % (Auto) (0-1) % Sodium (140-148) mmol/L Potassium (3.6-5.2) mmol/L Chloride (100-108) mmol/L Carbon Dioxide (21-32) mmol/L Anion Gap (5.0-14.0) mmol/L BUN (7-18) mg/dL Creatinine (0.6-1.0) mg/dL Est Cr Clr Drug Dosing mL/min Estimated GFR (MDRD) (>60) Glucose (74-106) mg/dL Calcium (8.5-10.1) mg/dL Total Bilirubin (0.2-1.0) mg/dL AST (15-37) U/L ALT (12-78) U/L Alkaline Phosphatase (46-116) U/L C-Reactive Protein (0.0-0.3) mg/dL Total Protein (6.4-8.2) g/dL Albumin (3.4-5.0) g/dL Globulin (2.3-3.5) g/dL Albumin/Globulin Ratio (1.2-2.2) Urine Color Yellow (YELLOW) Urine Appearance Slightly cloudy A (CLEAR) Urine pH 5.5 (5.0-8.0) Ur Specific [place] >= 1.030 (1.008-1.030) Urine Protein 30 H (NEGATIVE) mg/dL Urine Glucose (UA) Negative (NEGATIVE) mg/dL Urine Ketones Negative (NEGATIVE) mg/dL Urine Occult Blood Negative (NEGATIVE) Urine Nitrite Negative (NEGATIVE) Urine Bilirubin Negative (NEGATIVE) Urine Urobilinogen 0.2 (0.2-1.0) EU/dL Ur Leukocyte Esterase Negative (NEGATIVE) Urine RBC 0-5 (0-5) Urine WBC 0-5 (0-5) Ur Epithelial Cells Moderate Amorphous Sediment Not seen Urine Bacteria Moderate Urine Mucus Not seen Meds: Medications Discontinued Medications Generic Name Dose Route Start Last Admin Trade Name Freq PRN Reason Stop Dose Admin Baclofen 10 mg 08/04/19 03:50 08/04/19 03:58 Lioresal PO 08/04/19 03:51 10 mg ONETIME ONE Administration Belladonna Alkaloids/Opium 1 supp 08/04/19 08:11 08/04/19 08:23 B & O Supprettes No. 15a RECTAL 08/04/19 08:12 1 supp ONETIME ONE Administration Ceftriaxone Sodium Confirm 08/04/19 06:48 08/04/19 06:57 Rocephin Administered 08/04/19 06:49 Not Given Dose 1 gm .ROUTE .STK-MED ONE Diazepam 2 mg 08/04/19 02:40 08/04/19 02:50 Valium IVPUSH 08/04/19 02:41 2 mg ONETIME ONE Administration Fentanyl 50 mcg 08/04/19 03:47 08/04/19 03:57 Sublimaze IVPUSH 08/04/19 03:48 50 mcg ONETIME ONE Administration Fentanyl 50 mcg 08/04/19 06:33 08/04/19 06:42 Sublimaze IVPUSH 08/04/19 06:34 50 mcg ONETIME ONE Administration Hydromorphone HCl 0.5 mg 08/04/19 01:34 08/04/19 02:03 Dilaudid IVPUSH 08/04/19 01:35 Not Given ONETIME ONE Sodium Chloride 1,000 mls @ 999 mls/hr 08/04/19 01:45 08/04/19 03:04 Normal Saline IV Infused ASDIRECTED JOSE Infusion Sodium Chloride 85 mls @ 3 mls/sec 08/04/19 02:45 08/04/19 03:00 Normal Saline IV 08/04/19 02:46 3 mls/sec ONETIME ONE Administration Sodium Chloride 1,000 mls @ 999 mls/hr 08/04/19 04:00 08/04/19 04:08 Normal Saline IV 999 mls/hr ASDIRECTED JOSE Administration Ceftriaxone Sodium 1 gm/ 50 mls @ 100 mls/hr 08/04/19 06:31 08/04/19 06:43 Sodium Chloride IV 08/04/19 07:00 100 mls/hr ONETIME ONE Administration Sodium Chloride Confirm 08/04/19 06:49 08/04/19 06:57 Normal Saline Administered 08/04/19 06:50 Not Given Dose 50 mls @ as directed .ROUTE .STK-MED ONE Iopamidol 148 ml 08/04/19 02:45 08/04/19 03:00 Isovue-300 (61%) IV 148 ml . DIRECTED JOSE Administration Morphine Sulfate 2 mg 08/04/19 01:51 08/04/19 01:58 Morphine IVPUSH 08/04/19 01:52 2 mg ONETIME ONE Administration Morphine Sulfate 2 mg 08/04/19 02:39 08/04/19 02:43 Morphine IVPUSH 08/04/19 02:40 2 mg ONETIME ONE Administration Ondansetron HCl 4 mg 08/04/19 01:34 08/04/19 01:55 Zofran IVPUSH 08/04/19 01:35 4 mg ONETIME ONE Administration Oxybutynin Chloride 5 mg 08/04/19 07:49 08/04/19 08:23 Oxybutynin PO 08/04/19 07:50 5 mg ONETIME ONE Administration Phenazopyridine HCl 190 mg 08/04/19 05:11 08/04/19 05:16 Urinary Pain Relief PO 08/04/19 05:12 190 mg ONETIME ONE Administration Phenazopyridine HCl 190 mg 08/04/19 06:35 08/04/19 06:55 Urinary Pain Relief PO 08/04/19 06:36 190 mg ONETIME ONE Administration Sodium Chloride 10 ml 08/04/19 01:33 08/04/19 04:21 Saline Flush FLUSH 10 ml ASDIRECTED PRN Administration Keep Vein Open Sodium Chloride 10 ml 08/04/19 02:45 08/04/19 03:00 Saline Flush FLUSH 10 ml ONETIME PRN Administration PER RADIOLOGY PROTOCOL - Re-Assessments/Exams Free Text/Narrative Re-Assessment/Exam: 08/04/19 03:56 pt had a cat scan of the abdoman pelvis which was neg. She has normal lab work, 08/04/19 06:38 pt continues to be very uncomfortable but she did get relieve with the fentyl. She is now hurting alot when she voids. The urine has been cultured and will give rocephen 1 gm. Departure - Departure Disposition: Home, Self-Care 01 Clinical Impression: Dysuria - Discharge Information Instructions: Dysuria Referrals: Guillermo Matos MD [Primary Care Provider] - Forms: ED Department Discharge Care Plan Goals: If not improving after 24 hours of antibiotics, consider being evaluated in [place] by urology. You may have to push the issue by evaluation in the emergency department first. <Paramjit Mohr - Last Filed: 08/04/19 10:33> Course - Re-Assessments/Exams Free Text/Narrative Re-Assessment/Exam: 08/04/19 10:[address] Sethi. She still had significant lower abdominal and pelvic spasm and pain after the medication. I discussed her situation with neurology, they recommended a B&O suppository and oral Ditropan. This was provided. After an additional hour she was still having significant discomfort but unfortunately would not be accepted for admission in [place] and we have nothing more to offer her here until the antibiotics have had a chance to work. She'll be rechecked in 24-48 hours if not improving satisfactorily. Departure - Departure Time of Disposition: 09:57
[2019-08-04] MEDS ORDERED: Sodium Chloride 0.9% 10 ML Syringe FLUSH PRN ×2 (01:33→02:45)
[2019-08-04] MEDS ORDERED: HYDROmorphone 0.5 MG/0.5 ML Syringe IVPUSH ONE (01:34)
[2019-08-04] MEDS ORDERED: Ondansetron 4 MG/2 ML SDV IVPUSH ONE (01:34)
[2019-08-04] MEDS ORDERED: Morphine 2 MG/ML Syringe IVPUSH ONE ×2 (01:51→02:39)
[2019-08-04] MEDS: Sodium Chloride 0.9% 1,000 ML IV SCH ×2 (02:03→04:07)
[2019-08-04] MEDS ORDERED: Iopamidol 612 MG/ML 150 ML Bottle IV SCH (02:45)
--- NOTE | 2019-08-04 03:28 | CRLCT ---
INDICATION: Pain in right lower abdominal TECHNIQUE: CT Abdomen and pelvis with i.v. contrast. Coronal and sagittal reformats were obtained. CONTRAST: 148 mL Isovue 300 COMPARISON: 04/22/2017 FINDINGS: Lower chest: Unremarkable. Liver: Unremarkable. Spleen: Unremarkable. Pancreas: Low density is present in the uncinate portion of the pancreatic head without interval change likely due to fatty infiltration. No pancreatic ductal dilatation seen. Gallbladder: Previous cholecystectomy noted without significant intra- or extrahepatic biliary ductal dilatation seen. Kidney: Unremarkable. No kidney or ureteral stones or obstruction seen. Adrenal: Unremarkable. Bowel: The appendix is not identified and likely surgically absent given the presence of surgical clips along the medial cecum and any posterior peritoneal reflection on image 113. Vascular: Unremarkable. Lymph: Unremarkable. Peritoneum: Unremarkable. No pneumoperitoneum is seen. No significant ascites is noted. Pelvis: There is a 2.2 cm cystic lesion present in the left pelvis which may represent a cyst or follicle in the left ovary. Soft tissue: Unremarkable. Bone: Unremarkable for age. IMPRESSION: 1. Unremarkable with no CT correlate for the patient`s symptoms seen. Dictated by Nikolas Coto MD @ 08/04/2019 3:25:51 AM Please note that all CT scans at this facility use dose modulation, iterative reconstruction, and/or weight-based dosing when appropriate to reduce radiation dose to as low as reasonably achievable. Dictated by: Nikolas Coto MD @ 08/04/2019 03:25:59 (Electronically Signed)
[2019-08-04] MEDS ORDERED: fentaNYL 100 MCG/2 ML SDV IVPUSH ONE ×2 (03:47→06:33)
[2019-08-04] MEDS ORDERED: Baclofen 10 MG Tab PO ONE (03:50)
[2019-08-04] MEDS ORDERED: Sodium Chloride 0.9% 1,000 ML IV SCH (04:00)
[2019-08-04] MEDS ORDERED: Phenazopyridine 95 MG Tab PO ONE ×2 (05:11→06:35)
[2019-08-04] MEDS ORDERED: cefTRIAXone 1 GM in Sodium Chloride 0.9% 50 ML IV ONE (06:31)
[2019-08-04] MEDS ORDERED: cefTRIAXone 1 GM Vial ONE (06:48)
[2019-08-04] MEDS ORDERED: Sodium Chloride 0.9% 50 ML ONE (06:49)
[2019-08-04] MEDS ORDERED: Oxybutynin 5 MG Tab PO ONE (07:49)
[2019-08-04] MEDS ORDERED: Belladonna Alkaloids/Opium 16.2-30 MG Supp RECTAL ONE (08:11)
[2019-08-04 09:55] VITALS: BP 136/66; PULSE 77
== END 2019-08-04 09:57 | disposition home or self-care (01) ==
LOC: JP.ED 00:47
DX: R30.0 Dysuria (principal); R10.31 Right lower quadrant pain; J45.909 Unspecified asthma, uncomplicated; K21.9 Gastro-esophageal reflux disease without esophagitis; F41.9 Anxiety disorder, unspecified; F32.9 Major depressive disorder, single episode, unspecified; E03.9 Hypothyroidism, unspecified; Z79.899 Other long term (current) drug therapy; Z88.6 Allergy status to analgesic agent; Z88.8 Allergy status to other drugs, medicaments and biological substances; Z91.013 Allergy to seafood; Z91.018 Allergy to other foods; Z88.0 Allergy status to penicillin
CPT/HCPCS: 36415; 74177; 80053; 81001; 85025; 86140; 87086; 96361; 96365; 96375; 96376; 99284; A9270; J0696; J2270; J2405; J3010; J3360; J7030; J7050

== ENCOUNTER 2019-09-29 11:33 | Emergency (ER) | payer MEDICAID ==
[2019-09-29 11:57] VITALS: BP 154/80; PULSE 94
--- NOTE | 2019-09-29 12:34 | EDM.PDOC ---
ED HPI GENERAL MEDICAL PROBLEM - General Chief Complaint: ENT Problem Stated Complaint: POSSIBLE RT EAR INFECTION Time Seen by Provider: 09/29/19 12:26 Source of Information: Reports: Patient History Limitations: Reports: No Limitations - History of Present Illness INITIAL COMMENTS - FREE TEXT/NARRATIVE: Alert 39 yo female presents to ER after a ride from her mother after overnight work this am for evaluation of inner and outer right ear pain. Patient noted some slight discomfort the last 2-3 days but more severe over night. Patient denies fever, chills, sweats or URI symptoms. 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 Patient has had stomach and colon issues for the last few months and does not want narcotics due to constipation risk or certain antibiotics that cause GI concerns. Patient declines [place] and Doxycycline for GI concerns. Patient already has a message sent to her ENT specialist in the [facility] area. Right Ear Pain Score (Numeric/FACES): 7 - Related Data Allergies Allergy/AdvReac Type Severity Reaction Status Date / Time shellfish derived Allergy Severe Anaphylactic Verified 09/29/19 12:01 Shock kiwi Allergy Facial Verified 09/29/19 12:01 Swelling Penicillins Allergy Rash Verified 09/29/19 12:01 clonazepam [From Klonopin] AdvReac Hallucinati Verified 09/29/19 12:01 ons hydromorphone HCl AdvReac Nausea Verified 09/29/19 12:01 [From Dilaudid] varenicline tartrate AdvReac Seizure Verified 09/29/19 12:01 [From Chantix] Home Meds: Home Meds FLUoxetine [PROzac] 80 mg PO DAILY 06/03/14 [History] Albuterol [Ventolin HFA] 2 puff INH Q4H PRN 06/06/14 [History] LORazepam [Ativan] 1 mg PO Q4HR PRN 06/06/14 [History] Omeprazole [Prilosec] 40 mg PO DAILY 08/13/14 [History] Dextroamphetamine/Amphetamine [Adderall 20 mg Tablet] 30 mg PO 1400 07/09/15 [ History] Albuterol Sulfate 3 ml INH Q4HR PRN 06/17/16 [History] Amphetamine/Dextroamphetamine [Adderall XR] 40 mg PO WITHBREAKFAST cap.er 07/06 [Rx] Albuterol/Ipratropium [DuoNeb 3.0-0.5 MG/3 ML] 1 dose INH Q4H PRN 09/01/17 [ History] Levothyroxine 1 tab PO DAILY 12/29/17 [History] lamoTRIgine [Lamictal] 100 mg PO DAILY 08/04/19 [History] Clindamycin HCl [Cleocin] 150 mg PO Q6H 10 Days #30 cap 09/29/19 [Rx] Hydrocort/Neomycin/Polymyxin B [Cortisporin Ophth Susp] 2 drop OP Q6H 7 Days #1 bottle 09/29/19 [Rx] Past Medical History HEENT History: Reports: Hard of Hearing, Other (See Below) Other HEENT History: ear surgery to right Respiratory History: Reports: Asthma, Pneumonia, Recurrent Gastrointestinal History: Reports: Chronic Constipation, GERD Genitourinary History: Reports: Renal Calculus [employer] History: Reports: Neurological History: Reports: Seizure Other Neuro History: pseudo-seizures r/t anxiety Psychiatric History: Reports: Anxiety, Depression, Psychosis, PTSD, Suicide Attempt, Suicidal Ideation, Other (See Below) Other Psychiatric History: multiple personality disorder; 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" Endocrine/Metabolic History: Reports: Hypothyroidism, Obesity/BMI 30+, Vitamin D Deficiency Immunologic History: Reports: Other (See Below) Other Immunologic History: MRSA Oncologic (Cancer) History: Reports: None - Infectious Disease History Infectious Disease History: Reports: Chicken Pox - Past Surgical History Head Surgeries/Procedures: Reports: None HEENT Surgical History: Reports: Adenoidectomy Other HEENT Surgeries/Procedures: 15 ear surgeries GI Surgical History: Reports: Appendectomy, Cholecystectomy, Colonoscopy, EGD, Other (See Below) Other GI Surgeries/Procedures: panniculectomy, drainage of abdominal abcess x's 2 Female Surgical History: Reports: Breast Biopsy, Endometrial Ablation, Hysterectomy Endocrine Surgical History: Reports: None Neurological Surgical History: Reports: None Oncologic Surgical History: Reports: Lumpectomy Dermatological Surgical History: Reports: Skin Biopsy Social & Family History - Family History Family Medical History: Noncontributory HEENT: Reports: Macular Degeneration Cardiac: Reports: Hypertension Neurological: Reports: CVA Psychiatric: Reports: Anxiety, Depression Endocrine/Metabolic: Reports: Diabetes, type II Dermatologic: Reports: Psoriasis Oncologic: Reports: Colon - Tobacco Use Smoking Status *Q: Current Every Day Smoker Years of Tobacco use: 18 Packs/Tins Daily: 0.5 - Caffeine Use Caffeine Use: Reports: Soda - Living Situation & Occupation Living situation: Reports: with Significant Other Occupation: Employed ED ROS ENT - Review of Systems Review Of Systems: See Below ED EXAM, ENT - Physical Exam Exam: See Below Exam Limited By: No Limitations General Appearance: Alert, WD/WN, No Apparent Distress Eye Exam: Bilateral Eye: EOMI, PERRL Ears: Normal External Exam, Normal Canal, Hearing Grossly Normal, Normal TMs ( Left Normal. Right significant defect noted with very wide auditory canal noting purulent drainage and mild erythema. TM dark brown no PE tube noted due to crusty drainage. ) Nose: Normal Inspection, Normal Mucousa, No Blood Mouth/Throat: Normal Inspection, Normal Gums, Normal Lips, Normal Oropharynx, Normal Teeth Neck: Normal Inspection Respiratory/Chest: No Respiratory Distress, Lungs Clear Cardiovascular: Normal Peripheral Pulses, Regular Rate, Rhythm Neurological: Alert, Oriented, CN II-XII Intact, Normal Cognition, Normal Gait, Normal Reflexes, No Motor/Sensory Deficits Psychiatric: Normal Affect, Normal Mood, Tearful (due to pain concerns ) Course - Vital Signs Last Recorded V/S: Last Vital Signs Temp 36.8 C 09/29/19 13:04 Pulse 94 09/29/19 13:04 Resp 16 09/29/19 13:04 BP 154/80 H 09/29/19 13:04 Pulse Ox 97 09/29/19 13:04 - Orders/Labs/Meds Meds: Medications Discontinued Medications Generic Name Dose Route Start Last Admin Trade Name Freq PRN Reason Stop Dose Admin Lidocaine/Tetracaine 5 ml 09/29/19 12:42 09/29/19 13:06 Let Soln TOP 09/29/19 12:43 5 ml ONETIME ONE Administration - Re-Assessments/Exams Free Text/Narrative Re-Assessment/Exam: Auralgan was pulled off market by FDA. Alternative LET, Lidocaine 4% vs Lidocaine 2% or Viscus Lidocaine. LET applied to inner ear for local pain. Recommended Ibuprofen at home. Discussed previous medications and reviewed previous ER visit for treatment plan/medication choices which are Cortisporin and Clindamycin which will be prescribed today. Departure - Departure Time of Disposition: 12:55 Disposition: Home, Self-Care 01 Clinical Impression: Otitis media, Otitis externa, Elevated blood pressure reading - Discharge Information Prescriptions: Clindamycin HCl [Cleocin] 150 mg PO Q6H 10 Days #30 cap Hydrocort/Neomycin/Polymyxin B [Cortisporin Ophth Susp] 2 drop OP Q6H 7 Days #1 bottle Instructions: Otitis Externa, [id number], Otitis Media, Adult, [id number] Referrals: Guillermo Matos MD [Primary Care Provider] - Forms: ED Department Discharge Additional Instructions: 1. Call ENT Specialist this week regarding ear concerns and follow-up treatment recommendations. 2. Cortisporin ear drops as directed and Clindamycin oral antibiotic as directed. 3. Ibuprofen 600-800mg every 6 hours with food for pain, swelling and inflammation. 4. Warm compress to affected area 15-20 minutes 3-4 times per day to increase blood flow and infection with antiboiotic. 5. Lidocaine, Epi and Tetracaine drops 2-3 drops in affected ear to help with pain. 6. Call PCP for recheck next week if increase pain ,fever or not improving in 2- 3 days. 7. Return to ER if symptoms worsen or new concerns, headache, fever. - Problem List & Annotations (1) Otitis externa SNOMED Code(s): 6695135 Code(s): H60.90 - UNSPECIFIED OTITIS EXTERNA, UNSPECIFIED EAR Status: Acute (2) Otitis media SNOMED Code(s): 25412357 Code(s): H66.90 - OTITIS MEDIA, UNSPECIFIED, UNSPECIFIED EAR Status: Acute
[2019-09-29] MEDS ORDERED: Lidocaine/EPINEPHrine/Tetracaine Soln 5 ML Each TOP ONE (12:42)
== END 2019-09-29 13:07 | disposition home or self-care (01) ==
LOC: JP.ED 11:33
DX: H66.91 Otitis media, unspecified, right ear (principal); H60.91 Unspecified otitis externa, right ear; R03.0 Elevated blood-pressure reading, without diagnosis of hypertension; J45.909 Unspecified asthma, uncomplicated; K21.9 Gastro-esophageal reflux disease without esophagitis; E66.9 Obesity, unspecified; E03.9 Hypothyroidism, unspecified; F32.9 Major depressive disorder, single episode, unspecified; F41.9 Anxiety disorder, unspecified; F17.210 Nicotine dependence, cigarettes, uncomplicated; Z91.013 Allergy to seafood; Z91.018 Allergy to other foods; Z88.0 Allergy status to penicillin; Z88.8 Allergy status to other drugs, medicaments and biological substances; Z79.899 Other long term (current) drug therapy; Z68.38 Body mass index [BMI] 38.0-38.9, adult; Z79.890 Hormone replacement therapy
CPT/HCPCS: 99282; A9270

== ENCOUNTER 2019-12-26 18:15 | Emergency (ER) | payer MEDICAID ==
[2019-12-26 18:50] VITALS: PULSE 108
[2019-12-26] MEDS ORDERED: Ondansetron 4 MG/2 ML SDV IVPUSH ONE (19:26)
[2019-12-26] MEDS ORDERED: Sodium Chloride 0.9% 10 ML Syringe FLUSH PRN (19:26)
[2019-12-26] MEDS ORDERED: Ketorolac 30 MG/ML SDV IVPUSH ONE (19:26)
--- NOTE | 2019-12-26 19:36 | EDM.PDOC ---
ED HPI GENERAL MEDICAL PROBLEM - General Chief Complaint: Headache Stated Complaint: HEADACHE Time Seen by Provider: 12/26/19 19:19 Source of Information: Reports: Patient, Family, RN Notes Reviewed History Limitations: Reports: No Limitations - History of Present Illness INITIAL COMMENTS - FREE TEXT/NARRATIVE: 39-year-old female presents to the emergency department with a complaint of headache pain, she states she usually does not get headaches no history of migraines states the pain initially started 3 days prior has progressively gotten worse has had some nausea some photophobia is also having right ear pain. 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 Also complains of right arm numbness no chest pain no shortness of breath no diaphoresis Headache Pain Score (Numeric/FACES): 8 - Related Data Allergies Allergy/AdvReac Type Severity Reaction Status Date / Time shellfish derived Allergy Severe Anaphylactic Verified 12/26/19 19:07 Shock kiwi Allergy Facial Verified 12/26/19 19:07 Swelling Penicillins Allergy Rash Verified 12/26/19 19:07 clonazepam [From Klonopin] AdvReac Hallucinati Verified 12/26/19 19:07 ons hydromorphone HCl AdvReac Nausea Verified 12/26/19 19:07 [From Dilaudid] varenicline tartrate AdvReac Seizure Verified 12/26/19 19:07 [From Chantix] Home Meds: Home Meds FLUoxetine [PROzac] 80 mg PO DAILY 06/03/14 [History] Albuterol [Ventolin HFA] 2 puff INH Q4H PRN 06/06/14 [History] LORazepam [Ativan] 1 mg PO Q4HR PRN 06/06/14 [History] Omeprazole [Prilosec] 40 mg PO DAILY 08/13/14 [History] Dextroamphetamine/Amphetamine [Adderall 20 mg Tablet] 30 mg PO 1400 07/09/15 [ History] Albuterol Sulfate 3 ml INH Q4HR PRN 05/07/16 [History] Amphetamine/Dextroamphetamine [Adderall XR] 40 mg PO WITHBREAKFAST cap.er 07/06 [Rx] Albuterol/Ipratropium [DuoNeb 3.0-0.5 MG/3 ML] 1 dose INH Q4H PRN 09/01/17 [ History] Levothyroxine 1 tab PO DAILY 12/29/17 [History] lamoTRIgine [Lamictal] 100 mg PO DAILY 08/04/19 [History] Hydrocort/Neomycin/Polymyxin B [Cortisporin Ophth Susp] 2 drop OP Q6H 7 Days #1 bottle 09/29/19 [Rx] clindamycin HCL [Cleocin] 150 mg PO Q6H 10 Days #30 cap 09/29/19 [Rx] Past Medical History HEENT History: Reports: Hard of Hearing, Other (See Below) Other HEENT History: ear surgery to right Respiratory History: Reports: Asthma, Pneumonia, Recurrent Gastrointestinal History: Reports: Chronic Constipation, GERD Genitourinary History: Reports: Renal Calculus HEAD OF DRAMA History: Reports: Neurological History: Reports: Seizure Other Neuro History: pseudo-seizures r/t anxiety Psychiatric History: Reports: Anxiety, Depression, Psychosis, PTSD, Suicide Attempt, Suicidal Ideation, Other (See Below) Other Psychiatric History: multiple personality disorder; 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" Endocrine/Metabolic History: Reports: Hypothyroidism, Obesity/BMI 30+, Vitamin D Deficiency Immunologic History: Reports: Other (See Below) Other Immunologic History: MRSA Oncologic (Cancer) History: Reports: None - Infectious Disease History Infectious Disease History: Reports: Chicken Pox - Past Surgical History Head Surgeries/Procedures: Reports: None HEENT Surgical History: Reports: Adenoidectomy Other HEENT Surgeries/Procedures: 15 ear surgeries GI Surgical History: Reports: Appendectomy, Cholecystectomy, Colonoscopy, EGD, Other (See Below) Other GI Surgeries/Procedures: panniculectomy, drainage of abdominal abcess x's 2 Female Surgical History: Reports: Breast Biopsy, Endometrial Ablation, Hysterectomy Endocrine Surgical History: Reports: None Neurological Surgical History: Reports: None Oncologic Surgical History: Reports: Lumpectomy Dermatological Surgical History: Reports: Skin Biopsy Social & Family History - Family History Family Medical History: Noncontributory HEENT: Reports: Macular Degeneration Cardiac: Reports: Hypertension Neurological: Reports: CVA Psychiatric: Reports: Anxiety, Depression Endocrine/Metabolic: Reports: Diabetes, type II Dermatologic: Reports: Psoriasis Oncologic: Reports: Colon - Tobacco Use Smoking Status *Q: Current Every Day Smoker Years of Tobacco use: 20 Packs/Tins Daily: 0.4 - Caffeine Use Caffeine Use: Reports: Soda - Recreational Drug Use Recreational Drug Use: No - Living Situation & Occupation Living situation: Reports: with Significant Other Occupation: Employed ED ROS ENT - Review of Systems Review Of Systems: See Below Constitutional: Denies: Fever, Chills HEENT: Reports: Ear Pain. Denies: Ear Discharge Respiratory: Reports: Shortness of Breath Cardiovascular: Reports: No Symptoms GI/Abdominal: Reports: Nausea Neurological: Reports: Headache ED EXAM, ENT - Physical Exam Exam: See Below Exam Limited By: Other (Difficult historian very stoic suspect this is related to multiple psychiatric components) General Appearance: Alert, No Apparent Distress Eye Exam: Bilateral Eye: Normal Inspection Ears: Normal External Exam (On the left), Normal Canal, Hearing Grossly Normal, Normal TMs, Other (Right ear exam is had multiple surgical interventions canal has been remodeled I do not appreciate any erythema or edema) Nose: Normal Inspection, Normal Mucousa, No Blood Mouth/Throat: Normal Inspection, Normal Gums, Normal Lips, Normal Oropharynx, Normal Teeth Head: Atraumatic, Normocephalic Neck: Normal Inspection, Supple, Full Range of Motion, Tender Lateral. No: Tender Midline Respiratory/Chest: No Respiratory Distress, Lungs Clear, Normal Breath Sounds, No Accessory Muscle Use, Chest Non-Tender Cardiovascular: Regular Rate, Rhythm, No Murmur GI/Abdominal: Soft, Non-Tender Course - Vital Signs Last Recorded V/S: Last Vital Signs Temp 98.2 F 12/26/19 19:06 Pulse 108 H 12/26/19 19:06 Resp 16 12/26/19 19:06 BP Pulse Ox 97 12/26/19 19:06 - Orders/Labs/Meds Orders: Active Orders 24 hr Category Date Time Status Peripheral IV Care [RC] . DIRECTED Care 12/26/19 19:26 Active Sodium Chloride 0.9% [Saline Flush] Med 12/26/19 19:26 Active 10 ml FLUSH ASDIRECTED PRN Peripheral IV Insertion Adult [OM.PC] Urgent Oth 12/26/19 19:26 Ordered Medication Orders Sodium Chloride (Saline Flush) 10 ml FLUSH ASDIRECTED PRN PRN Reason: Keep Vein Open Last Admin: 12/26/19 19:52 Dose: 10 ml Labs: Laboratory Tests 12/26/19 12/26/19 12/26/19 Range/Units 19:37 19:37 19:37 WBC 8.7 (4.5-11.0) K/uL RBC 4.78 (3.30-5.50) M/uL Hgb 13.6 (12.0-15.0) g/dL Hct 40.6 (36.0-48.0) % MCV 85 (80-98) fL MCH 29 (27-31) pg MCHC 34 (32-36) % Plt Count 346 (150-400) K/uL Neut % (Auto) 56 (36-66) % Lymph % (Auto) 31 (24-44) % [place] % (Auto) 12 H (2-6) % Eos % (Auto) 1 L (2-4) % Baso % (Auto) 1 (0-1) % Sodium 134 L (140-148) mmol/L Potassium 3.1 L (3.6-5.2) mmol/L Chloride 103 (100-108) mmol/L Carbon Dioxide 23 (21-32) mmol/L Anion Gap 11.1 (5.0-14.0) mmol/L BUN 10 (7-18) mg/dL Creatinine 0.8 (0.6-1.0) mg/dL Est Cr Clr Drug Dosing 82.33 mL/min Estimated GFR (MDRD) > 60 (>60) Glucose 106 (74-106) mg/dL Lactic Acid 0.8 (0.4-2.0) mmol/L Calcium 8.5 (8.5-10.1) mg/dL Total Bilirubin 0.3 (0.2-1.0) mg/dL AST 16 (15-37) U/L ALT 29 (12-78) U/L Alkaline Phosphatase 102 (46-116) U/L Troponin I < 0.017 (0.000-0.056) ng/mL Total Protein 7.2 (6.4-8.2) g/dL Albumin 3.5 (3.4-5.0) g/dL Globulin 3.7 H (2.3-3.5) g/dL Albumin/Globulin Ratio 1.0 L (1.2-2.2) Meds: Medications Generic Name Dose Route Start Last Admin Trade Name Freq PRN Reason Stop Dose Admin Sodium Chloride 10 ml 12/26/19 19:26 12/26/19 19:52 Saline Flush FLUSH 10 ml ASDIRECTED PRN Administration Keep Vein Open Discontinued Medications Generic Name Dose Route Start Last Admin Trade Name Freq PRN Reason Stop Dose Admin Diphenhydramine HCl 50 mg 12/26/19 20:42 12/26/19 20:50 Benadryl IVPUSH 12/26/19 20:43 50 mg ONETIME ONE Administration Lactated Ringer's 1,000 mls @ 999 mls/hr 12/26/19 20:39 12/26/19 20:49 Ringers, Lactated IV 12/26/19 21:39 999 mls/hr BOLUS ONE Administration Ketorolac Tromethamine 30 mg 12/26/19 19:26 12/26/19 19:44 Toradol IVPUSH 12/26/19 19:27 30 mg ONETIME ONE Administration Ondansetron HCl 4 mg 12/26/19 19:26 12/26/19 19:44 Zofran IVPUSH 12/26/19 19:27 4 mg ONETIME ONE Administration Oxycodone/Acetaminophen 1 tab 12/26/19 21:20 12/26/19 21:39 Percocet 325-5 Mg PO 12/26/19 21:21 1 tab ONETIME ONE Administration Departure - Departure Time of Disposition: 22:38 Disposition: Home, Self-Care 01 Condition: Fair Clinical Impression: Headache Qualifiers: Headache type: unspecified - Discharge Information Referrals: Guillermo Matos MD [Primary Care Provider] - Forms: ED Department Discharge Additional Instructions: Use Percocet as needed for pain control, keep your follow-up appointment with your ear nose and throat on Tuesday call return to the emergency department worsening of symptoms Sepsis Event Note - Evaluation Sepsis Screening Result: No Definite Risk - Focused Exam Vital Signs: Vital Signs Temp Pulse Resp Pulse Ox 12/26/19 19:06 98.2 F 108 H 16 97 12/26/19 18:39 98.2 F 108 H 16 97 Date Exam was Performed: 12/26/19 Time Exam was Performed: 22:37 - My Orders Last 24 Hours: My Active Orders 12/26/19 19:26 Peripheral IV Care [RC] . DIRECTED Sodium Chloride 0.9% [Saline Flush] 10 ml FLUSH ASDIRECTED PRN Peripheral IV Insertion Adult [OM.PC] Urgent - Assessment/Plan Last 24 Hours: My Active Orders 12/26/19 19:26 Peripheral IV Care [RC] . DIRECTED Sodium Chloride 0.9% [Saline Flush] 10 ml FLUSH ASDIRECTED PRN Peripheral IV Insertion Adult [OM.PC] Urgent Plan: Assessment Acuity = acute Site and laterality = right-sided headache pain complicated patient with known history of mastoiditis Etiology = unknown Manifestations = none Location of injury = Home Lab values = CBC unremarkable potassium low at 3.1 consistent hypokalemia Plan She received 1 L fluids, Toradol and Percocet while in the emergency department this did help her pain she does have follow-up appointment with her ENT on Tuesday prescription written for Percocet 5325 1 tab p.o. 3 times daily PRN total #6 This note was dictated using [employer] voice recognition software please call with any questions on syntax or grammar.
[2019-12-26] MEDS ORDERED: Lactated Ringers 1,000 ML IV ONE (20:39)
[2019-12-26] MEDS ORDERED: diphenhydrAMINE 50 MG/ML SDV IVPUSH ONE (20:42)
[2019-12-26] MEDS ORDERED: Acetaminophen/oxyCODONE 325-5 MG Tab PO ONE (21:20)
== END 2019-12-26 23:00 | disposition home or self-care (01) ==
LOC: JP.ED 18:15
DX: R51 Headache (principal); J45.909 Unspecified asthma, uncomplicated; K21.9 Gastro-esophageal reflux disease without esophagitis; E03.9 Hypothyroidism, unspecified; F32.9 Major depressive disorder, single episode, unspecified; F41.9 Anxiety disorder, unspecified; F17.210 Nicotine dependence, cigarettes, uncomplicated; E66.9 Obesity, unspecified; Z68.37 Body mass index [BMI] 37.0-37.9, adult; Z88.5 Allergy status to narcotic agent; Z88.0 Allergy status to penicillin; Z91.013 Allergy to seafood; Z88.8 Allergy status to other drugs, medicaments and biological substances; Z91.018 Allergy to other foods; Z79.899 Other long term (current) drug therapy; Z79.890 Hormone replacement therapy
CPT/HCPCS: 36415; 80053; 83605; 84484; 85025; 96361; 96374; 96375; 99284; A9270; J1200; J1885; J2405; J7120

== ENCOUNTER 2020-01-02 12:11 | Emergency (ER) | payer MEDICAID ==
[2020-01-02] MEDS ORDERED: Sodium Chloride 0.9% 10 ML Syringe FLUSH PRN (14:04)
[2020-01-02] MEDS ORDERED: fentaNYL 100 MCG/2 ML SDV IVPUSH ONE (14:06)
[2020-01-02] MEDS ORDERED: Ondansetron 4 MG/2 ML SDV IVPUSH ONE (14:06)
--- NOTE | 2020-01-02 14:12 | EDM.PDOC ---
ED HPI GENERAL MEDICAL PROBLEM - General Chief Complaint: ENT Problem Stated Complaint: RIGHT SIDE NUMBNESS/LOSS OF VISION Time Seen by Provider: 01/02/20 14:08 Source of Information: Reports: Patient, Old Records, RN Notes Reviewed History Limitations: Reports: No Limitations - History of Present Illness INITIAL COMMENTS - FREE TEXT/NARRATIVE: 39-year-old female presents emergency department a complaint of headache dizziness and nausea, she also has right arm and leg numbness. She also complains of change in vision. I the opportunity to evaluate her 7 days prior for similar complaints she is very stoic difficult to obtain history from her she has an extensive psychiatric history. Evaluation 7 days ago was on revealing treated with Percocet discharged home she had a follow-up appointment with her ENT 4 days ago. Does have a history of mastoiditis was started on otic drops of antibiotic, per her report ENT was concerned about a possible abscess developing and has scheduled an MRI, she is also had fever up to 102 Headache Pain Score (Numeric/FACES): 8 - Related Data Allergies Allergy/AdvReac Type Severity Reaction Status Date / Time shellfish derived Allergy Severe Anaphylactic Verified 01/02/20 13:15 Shock kiwi Allergy Facial Verified 01/02/20 13:15 Swelling Penicillins Allergy Rash Verified 01/02/20 13:15 clonazepam [From Klonopin] AdvReac Hallucinati Verified 01/02/20 13:15 ons hydromorphone HCl AdvReac Nausea Verified 01/02/20 13:15 [From Dilaudid] varenicline tartrate AdvReac Seizure Verified 01/02/20 13:15 [From Chantix] Home Meds: Home Meds FLUoxetine [PROzac] 80 mg PO DAILY 06/03/14 [History] Albuterol [Ventolin HFA] 2 puff INH Q4H PRN 06/06/14 [History] LORazepam [Ativan] 1 mg PO Q4HR PRN 06/06/14 [History] Omeprazole [Prilosec] 40 mg PO DAILY 08/13/14 [History] Dextroamphetamine/Amphetamine [Adderall 20 mg Tablet] 30 mg PO 1400 07/09/15 [ History] Albuterol Sulfate 3 ml INH Q4HR PRN 05/07/16 [History] Amphetamine/Dextroamphetamine [Adderall XR] 40 mg PO WITHBREAKFAST cap.er 07/06 [Rx] Albuterol/Ipratropium [DuoNeb 3.0-0.5 MG/3 ML] 1 dose INH Q4H PRN 09/01/17 [ History] Levothyroxine 1 tab PO DAILY 12/29/17 [History] lamoTRIgine [Lamictal] 100 mg PO DAILY 08/04/19 [History] Ofloxacin 4 drop TOP QID 01/02/20 [History] Sulfameth/Trimethoprim 1 cap PO BID 01/02/20 [History] predniSONE [Prednisone] 10 mg PO ASDIRECTED 01/02/20 [History] Past Medical History HEENT History: Reports: Hard of Hearing, Other (See Below) Other HEENT History: ear surgery to right Respiratory History: Reports: Asthma, Pneumonia, Recurrent Gastrointestinal History: Reports: Chronic Constipation, GERD Genitourinary History: Reports: Renal Calculus RN UROLOGY History: Reports: Neurological History: Reports: Seizure Other Neuro History: pseudo-seizures r/t anxiety Psychiatric History: Reports: Anxiety, Depression, Psychosis, PTSD, Suicide Attempt, Suicidal Ideation, Other (See Below) Other Psychiatric History: multiple personality disorder; 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" Endocrine/Metabolic History: Reports: Hypothyroidism, Obesity/BMI 30+, Vitamin D Deficiency Immunologic History: Reports: Other (See Below) Other Immunologic History: MRSA Oncologic (Cancer) History: Reports: None - Infectious Disease History Infectious Disease History: Reports: Chicken Pox - Past Surgical History Head Surgeries/Procedures: Reports: None HEENT Surgical History: Reports: Adenoidectomy Other HEENT Surgeries/Procedures: 15 ear surgeries GI Surgical History: Reports: Appendectomy, Cholecystectomy, Colonoscopy, EGD, Other (See Below) Other GI Surgeries/Procedures: panniculectomy, drainage of abdominal abcess x's 2 Female Surgical History: Reports: Breast Biopsy, Endometrial Ablation, Hysterectomy Endocrine Surgical History: Reports: None Neurological Surgical History: Reports: None Oncologic Surgical History: Reports: Lumpectomy Dermatological Surgical History: Reports: Skin Biopsy Social & Family History - Family History Family Medical History: Noncontributory HEENT: Reports: Macular Degeneration Cardiac: Reports: Hypertension Neurological: Reports: CVA Psychiatric: Reports: Anxiety, Depression Endocrine/Metabolic: Reports: Diabetes, type II Dermatologic: Reports: Psoriasis Oncologic: Reports: Colon - Tobacco Use Smoking Status *Q: Current Every Day Smoker Years of Tobacco use: 16 Packs/Tins Daily: 0.5 - Caffeine Use Caffeine Use: Reports: Soda - Recreational Drug Use Recreational Drug Use: No - Living Situation & Occupation Living situation: Reports: with Significant Other Occupation: Employed ED ROS GENERAL - Review of Systems Review Of Systems: See Below Constitutional: Reports: Fever, Chills HEENT: Reports: Vision Change Respiratory: Reports: No Symptoms Cardiovascular: Reports: No Symptoms GI/Abdominal: Reports: Nausea : Reports: No Symptoms Musculoskeletal: Reports: No Symptoms Skin: Reports: No Symptoms Neurological: Reports: Headache, Numbness, Tingling, Trouble Speaking (Doing the best I can keep mind) ED EXAM, NEURO - Physical Exam Exam: See Below Exam Limited By: No Limitations General Appearance: Alert, Mild Distress Eye Exam: Bilateral Eye: EOMI, Normal Inspection, PERRL Throat/Mouth: Normal Inspection, Normal Lips, Normal Teeth, Normal Gums, Normal Oropharynx, Normal Voice, No Airway Compromise Head Exam: Atraumatic, Normocephalic Neck: Normal Inspection, Supple, Non-Tender, Full Range of Motion Respiratory/Chest: No Respiratory Distress, Lungs Clear, Normal Breath Sounds, No Accessory Muscle Use Cardiovascular: Regular Rate, Rhythm, No Murmur GI/Abdominal: Soft, Non-Tender Neurological: Alert, CN II-XII Intact, Normal Gait, No Motor/Sensory Deficits, Oriented x 3 Extremities: Normal Inspection, No Pedal Edema Psychiatric: Anxious, Flat Affect Course - Vital Signs Last Recorded V/S: Last Vital Signs Temp 97.6 F 01/02/20 13:14 Pulse 87 01/02/20 16:08 Resp 16 01/02/20 13:14 BP 128/78 01/02/20 16:08 Pulse Ox 98 01/02/20 16:08 - Orders/Labs/Meds Orders: Active Orders 24 hr Category Date Time Status Peripheral IV Care [RC] . DIRECTED Care 01/02/20 14:05 Active Iopamidol [Isovue-370 (76%)] Med 01/02/20 14:45 Active 100 ml IV . DIRECTED Sodium Chloride 0.9% [Normal Saline] 1,000 ml Med 01/02/20 14:15 Active IV ASDIRECTED Sodium Chloride 0.9% [Normal Saline] 100 ml Med 01/02/20 14:45 Active IV ASDIRECTED Sodium Chloride 0.9% [Saline Flush] Med 01/02/20 14:04 Active 10 ml FLUSH ASDIRECTED PRN Peripheral IV Insertion Adult [OM.PC] Urgent Oth 01/02/20 14:04 Ordered Medication Orders Sodium Chloride (Normal Saline) 1,000 mls @ 999 mls/hr IV ASDIRECTED JOSE Last Admin: 01/02/20 14:32 Dose: 999 mls/hr Sodium Chloride (Normal Saline) 100 mls @ 3 mls/sec IV ASDIRECTED JOSE Last Admin: 01/02/20 15:10 Dose: 4 mls/sec Iopamidol (Isovue-370 (76%)) 100 ml IV . DIRECTED JOSE Last Admin: 01/02/20 15:10 Dose: 100 ml Sodium Chloride (Saline Flush) 10 ml FLUSH ASDIRECTED PRN PRN Reason: Keep Vein Open Labs: Laboratory Tests 01/02/20 01/02/20 01/02/20 Range/Units 14:14 14:14 14:14 WBC 8.4 (4.5-11.0) K/uL RBC 4.75 (3.30-5.50) M/uL Hgb 13.6 (12.0-15.0) g/dL Hct 40.8 (36.0-48.0) % MCV 86 (80-98) fL MCH 29 (27-31) pg MCHC 33 (32-36) % Plt Count 389 (150-400) K/uL Neut % (Auto) 57 (36-66) % Lymph % (Auto) 31 (24-44) % [place] % (Auto) 11 H (2-6) % Eos % (Auto) 1 L (2-4) % Baso % (Auto) 1 (0-1) % ESR 19 (0-25) mm/hr Sodium 142 (140-148) mmol/L Potassium 3.7 (3.6-5.2) mmol/L Chloride 106 (100-108) mmol/L Carbon Dioxide 25 (21-32) mmol/L Anion Gap 10.8 (5.0-14.0) mmol/L BUN 6 L (7-18) mg/dL Creatinine 0.7 (0.6-1.0) mg/dL Est Cr Clr Drug Dosing 94.10 mL/min Estimated GFR (MDRD) > 60 (>60) Glucose 102 (74-106) mg/dL Calcium 8.3 L (8.5-10.1) mg/dL Total Bilirubin 0.2 (0.2-1.0) mg/dL AST 12 L (15-37) U/L ALT 25 (12-78) U/L Alkaline Phosphatase 91 (46-116) U/L Troponin I < 0.017 (0.000-0.056) ng/mL Total Protein 6.8 (6.4-8.2) g/dL Albumin 3.3 L (3.4-5.0) g/dL Globulin 3.5 (2.3-3.5) g/dL Albumin/Globulin Ratio 0.9 L (1.2-2.2) Meds: Medications Generic Name Dose Route Start Last Admin Trade Name Freq PRN Reason Stop Dose Admin Sodium Chloride 1,000 mls @ 999 mls/hr 01/02/20 14:15 01/02/20 14:32 Normal Saline IV 999 mls/hr ASDIRECTED JOSE Administration Sodium Chloride 100 mls @ 3 mls/sec 01/02/20 14:45 01/02/20 15:10 Normal Saline IV 4 mls/sec ASDIRECTED JOSE Administration Iopamidol 100 ml 01/02/20 14:45 01/02/20 15:10 Isovue-370 (76%) IV 100 ml . DIRECTED JOSE Administration Sodium Chloride 10 ml 01/02/20 14:04 Saline Flush FLUSH ASDIRECTED PRN Keep Vein Open Discontinued Medications Generic Name Dose Route Start Last Admin Trade Name Freq PRN Reason Stop Dose Admin Fentanyl 50 mcg 01/02/20 14:06 01/02/20 14:34 Sublimaze IVPUSH 01/02/20 14:07 50 mcg ONETIME ONE Administration Ondansetron HCl 4 mg 01/02/20 14:06 01/02/20 14:33 Zofran IVPUSH 01/02/20 14:07 4 mg ONETIME ONE Administration Oxycodone/Acetaminophen 1 tab 01/02/20 16:10 01/02/20 16:36 Percocet 325-5 Mg PO 01/02/20 16:11 1 tab NOW STA Administration Sodium Chloride 10 ml 01/02/20 14:43 01/02/20 15:10 Saline Flush FLUSH 01/02/20 14:44 10 ml ONETIME ONE Administration Departure - Departure Time of Disposition: 17:13 Disposition: Home, Self-Care 01 Condition: Fair Clinical Impression: Headache Qualifiers: Headache type: unspecified Headache chronicity pattern: acute headache Intractability: not intractable Qualified Code(s): R51 - Headache - Discharge Information Referrals: Guillermo Matos MD [Primary Care Provider] - Forms: ED Department Discharge Additional Instructions: Use ibuprofen for baseline pain control, use Percocet for breakthrough pain, please report for your MRI tomorrow and follow-up with your ear nose and throat Sepsis Event Note - Evaluation Sepsis Screening Result: No Definite Risk - Focused Exam Vital Signs: Vital Signs Temp Pulse Resp BP Pulse Ox 01/02/20 16:08 87 128/78 98 01/02/20 13:14 97.6 F 93 16 136/78 96 01/02/20 13:10 97.6 F 93 16 136/78 96 Date Exam was Performed: 01/02/20 Time Exam was Performed: 17:11 - My Orders Last 24 Hours: My Active Orders 01/02/20 14:04 Sodium Chloride 0.9% [Saline Flush] 10 ml FLUSH ASDIRECTED PRN Peripheral IV Insertion Adult [OM.PC] Urgent 01/02/20 14:05 Peripheral IV Care [RC] . DIRECTED 01/02/20 14:15 Sodium Chloride 0.9% [Normal Saline] 1,000 ml IV ASDIRECTED 01/02/20 14:45 Iopamidol [Isovue-370 (76%)] 100 ml IV . DIRECTED Sodium Chloride 0.9% [Normal Saline] 100 ml IV ASDIRECTED - Assessment/Plan Last 24 Hours: My Active Orders 01/02/20 14:04 Sodium Chloride 0.9% [Saline Flush] 10 ml FLUSH ASDIRECTED PRN Peripheral IV Insertion Adult [OM.PC] Urgent 01/02/20 14:05 Peripheral IV Care [RC] . DIRECTED 01/02/20 14:15 Sodium Chloride 0.9% [Normal Saline] 1,000 ml IV ASDIRECTED 01/02/20 14:45 Iopamidol [Isovue-370 (76%)] 100 ml IV . DIRECTED Sodium Chloride 0.9% [Normal Saline] 100 ml IV ASDIRECTED Plan: Assessment Acuity = acute Site and laterality = headache pain complicated patient known history of mastoidectomy Etiology = unknown Manifestations = reported fevers at home Location of injury = Home Lab values = CBC, CMP unremarkable CT scan of the head shows no acute process CTA also no acute process orbits do reveal an internal auditory canal widening on the right, influenza AMB negative Plan Prescription written for Percocet 5/325 1 tab p.o. every 6 hours PRN total #10 she is set up for an MRI tomorrow with her ear nose and throat This note was dictated using [employer] voice recognition software please call with any questions on syntax or grammar.
[2020-01-02] MEDS ORDERED: Sodium Chloride 0.9% 1,000 ML IV SCH (14:15)
[2020-01-02] MEDS ORDERED: Sodium Chloride 0.9% 10 ML Syringe FLUSH ONE (14:43)
[2020-01-02] MEDS ORDERED: Iopamidol 755 Mg/ML 100 ML Bottle IV SCH (14:45)
[2020-01-02] MEDS ORDERED: Sodium Chloride 0.9% 100 ML IV SCH (14:45)
--- NOTE | 2020-01-02 15:22 | CT ---
Head wo Cont CLINICAL HISTORY: Headache, dizziness COMPARISON: 2016 TECHNIQUE: Transverse scans were obtained from the base of the skull through the vertex without IV contrast on a multislice, multidetector CT scanner. Auto dosage reduction and iterative reconstruction techniques employed. FINDINGS: No focal abnormal parenchymal density is identified. There is no mass effect, hemorrhage, or extraaxial collection. The basal cisterns and sulci over the convexities are normal. The ventricles are normal for age. There are changes of previous right the sided mastoiditis and partial mastoidectomy IMPRESSION: No acute intracranial abnormality Changes of chronic mastoiditis on the right with previous partial mastoidectomy left mastoid air cells are clear
--- NOTE | 2020-01-02 15:29 | CT ---
Orbit Sella PF IAC wo Cont CLINICAL HISTORY: History of mastoiditis headache, dizziness TECHNIQUE: Multiple contiguous axial sections were obtained through the temporal bones followed by coronal reconstructions without the IV infusion of contrast material. Auto dosage reduction and iterative reconstruction techniques employed. FINDINGS: There are sclerotic changes in the region of the mastoid air cells. There is been previous partial mastoidectomy. There is opacification of the right middle ear cavity. 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 Internal auditory canals are slightly asymmetric with slight widening of the left IAC. Inner ear structures are symmetric. IMPRESSION: Changes of previous right sided mastoiditis with previous partial mastoidectomy Opacification of the right middle ear and absence of the stapes and incus Mild asymmetric widening of the left internal auditory canal of questionable significance. If clinically relevant, MRI of the IACs on a nonemergent basis is a consideration.
--- NOTE | 2020-01-02 15:35 | CT ---
[facility] CLINICAL HISTORY: Headaches and dizziness. COMPARISON: None TECHNIQUE: Multiple volume rendered and MIP 3D reconstructions were generated from source images obtained on a spiral scanner before and after intravenous iodinated contrast enhancement Auto dosage reduction and iterative reconstruction techniques employed. FINDINGS: Internal carotid arteries: Normal course and caliber Anterior cerebral arteries: Normal course and caliber. The anterior communicating artery is patent. Middle cerebral arteries: Normal course and caliber Posterior cerebral arteries: Normal course and caliber. The right posterior communicating artery is patent Vertebral/basilar arteries: Tortuous but normal caliber IMPRESSION: No aneurysm, significant stenosis or vascular malformation.
[2020-01-02 16:08] VITALS: BP 128/78; PULSE 87
[2020-01-02] MEDS ORDERED: Acetaminophen/oxyCODONE 325-5 MG Tab PO STA (16:10)
== END 2020-01-02 17:35 | disposition home or self-care (01) ==
LOC: JP.ED 12:11
DX: R51 Headache (principal); F32.9 Major depressive disorder, single episode, unspecified; F41.9 Anxiety disorder, unspecified; J45.909 Unspecified asthma, uncomplicated; E03.9 Hypothyroidism, unspecified; E66.9 Obesity, unspecified; K21.9 Gastro-esophageal reflux disease without esophagitis; F17.210 Nicotine dependence, cigarettes, uncomplicated; Z88.0 Allergy status to penicillin; Z88.8 Allergy status to other drugs, medicaments and biological substances; Z91.013 Allergy to seafood; Z79.899 Other long term (current) drug therapy; Z79.890 Hormone replacement therapy; Z68.37 Body mass index [BMI] 37.0-37.9, adult
CPT/HCPCS: 36415; 70450; 70480; 70496; 80053; 84484; 85025; 85651; 87804; 96361; 96374; 96375; 99284; A9270; J2405; J3010; J7030; J7050; Q9967

== ENCOUNTER 2020-07-26 15:52 | Emergency (ER) | payer MEDICAID ==
[2020-07-26 16:04] VITALS: BP 133/77; PULSE 84
[2020-07-26] MEDS ORDERED: Tetracaine HCl/PF 0.5% 4 ML Bottle EYEBOTH ONE (16:20)
--- NOTE | 2020-07-26 16:46 | EDM.PDOC ---
ED HPI GENERAL MEDICAL PROBLEM - General Chief Complaint: Eye Problems Stated Complaint: EYE PAIN Time Seen by Provider: 07/26/20 16:09 Source of Information: Reports: Patient History Limitations: Reports: No Limitations - History of Present Illness INITIAL COMMENTS - FREE TEXT/NARRATIVE: 39-year-old female presenting to the emergency department for evaluation and treatment of bilateral eye pain, redness and swelling associated with increased clear drainage. Symptoms began upon waking this morning. Yesterday patient had placed nonprescription cosmetic lenses in her eyes. She slept with them in overnight and when she awoke this morning had a symptoms. She removed the lenses right away. Symptoms did not improve throughout the day. She now notes light sensitivity, increased tearing and blurry vision. She denies any other symptoms or concerns. Onset: Today Duration: Constant Severity: Severe Bilateral Eye Pain Score (Numeric/FACES): 8 - Related Data Allergies Allergy/AdvReac Type Severity Reaction Status Date / Time shellfish derived Allergy Severe Anaphylactic Verified 07/26/20 16:05 Shock kiwi Allergy Facial Verified 07/26/20 16:05 Swelling Penicillins Allergy Rash Verified 07/26/20 16:05 clonazepam [From Klonopin] AdvReac Hallucinati Verified 07/26/20 16:05 ons hydromorphone HCl AdvReac Nausea Verified 07/26/20 16:05 [From Dilaudid] varenicline tartrate AdvReac Seizure Verified 07/26/20 16:05 [From Chantix] Home Meds: Home Meds FLUoxetine [PROzac] 80 mg PO DAILY 06/03/14 [History] Albuterol [Ventolin HFA] 2 puff INH Q4H PRN 06/06/14 [History] LORazepam [Ativan] 1 mg PO Q4HR PRN 06/06/14 [History] Omeprazole [Prilosec] 40 mg PO DAILY 08/13/14 [History] Dextroamphetamine/Amphetamine [Adderall 20 mg Tablet] 30 mg PO 1400 07/09/15 [History] Albuterol Sulfate 3 ml INH Q4HR PRN 05/07/16 [History] Amphetamine/Dextroamphetamine [Adderall XR] 40 mg PO WITHBREAKFAST cap.er 07/06/16 [Rx] Albuterol/Ipratropium [DuoNeb 3.0-0.5 MG/3 ML] 1 dose INH Q4H PRN 09/01/17 [History] Levothyroxine 1 tab PO DAILY 12/29/17 [History] lamoTRIgine [Lamictal] 100 mg PO DAILY 08/04/19 [History] Ofloxacin 4 drop TOP QID 01/02/20 [History] Sulfameth/Trimethoprim 1 cap PO BID 01/02/20 [History] Ciprofloxacin [Ciloxan 0.3% Ophth Soln] 2 drop EYEBOTH Q4H 7 Days #1 bottle 07/26/20 [Rx] Past Medical History HEENT History: Reports: Hard of Hearing, Other (See Below) Other HEENT History: ear surgery to right Respiratory History: Reports: Asthma, Pneumonia, Recurrent Gastrointestinal History: Reports: Chronic Constipation, GERD Genitourinary History: Reports: Renal Calculus 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 wound that is healed Oncologic (Cancer) History: Reports: None Dermatologic History: Reports: None - Infectious Disease History Infectious Disease History: Reports: Chicken Pox - Past Surgical History Head Surgeries/Procedures: Reports: None HEENT Surgical History: Reports: Adenoidectomy Other HEENT Surgeries/Procedures: 15 ear surgeries Respiratory Surgical History: Reports: None GI Surgical History: Reports: Appendectomy, Cholecystectomy, Colonoscopy, EGD, Other (See Below) Other GI Surgeries/Procedures: panniculectomy, drainage of abdominal abcess x's 2 Female Surgical History: Reports: Breast Biopsy, Endometrial Ablation, Hysterectomy Endocrine Surgical History: Reports: None Neurological Surgical History: Reports: None Oncologic Surgical History: Reports: Lumpectomy Dermatological Surgical History: Reports: Skin Biopsy Social & Family History - Family History Family Medical History: Noncontributory HEENT: Reports: Macular Degeneration Cardiac: Reports: Hypertension Neurological: Reports: CVA Psychiatric: Reports: Anxiety, Depression Endocrine/Metabolic: Reports: Diabetes, type II Dermatologic: Reports: Psoriasis Oncologic: Reports: Colon - Tobacco Use Smoking Status *Q: Current Every Day Smoker Years of Tobacco use: 20 Packs/Tins Daily: 0.5 - Caffeine Use Caffeine Use: Reports: Energy Drinks, Soda - Recreational Drug Use Recreational Drug Use: No - Living Situation & Occupation Living situation: Reports: with Significant Other Occupation: Employed ED ROS GENERAL - Review of Systems Review Of Systems: Comprehensive ROS is negative, except as noted in HPI. ED EXAM GENERAL W FULL EYE - Physical Exam Exam: See Below Exam Limited By: No Limitations General Appearance: Alert, WD/WN, No Apparent Distress Eye Exam: Bilateral Eye: Conjunctival Injection, EOMI, PERRL Eyelids: Bilateral: Normal Appearance Conjunctiva & Sclera: Bilateral: Conjunctival Edema Cornea Exam: Bilateral: Normal Appearance, Examined with Flourescein (No ferning or uptake noted) Extraocular Movements: Bilateral: Intact Pupillary Size: Bilateral: 3 mm Anterior Chamber: Bilateral: Normal Appearance Nose: Normal Inspection, Normal Mucosa, No Blood Throat/Mouth: Normal Inspection, Normal Lips, Normal Teeth, Normal Gums, Normal Oropharynx, Normal Voice, No Airway Compromise Head: Atraumatic, Normocephalic Neck: Normal Inspection, Supple, Non-Tender, Full Range of Motion Respiratory/Chest: No Respiratory Distress, Lungs Clear, Normal Breath Sounds, No Accessory Muscle Use, Chest Non-Tender Cardiovascular: Normal Peripheral Pulses, Regular Rate, Rhythm, No Edema, No Gallop, No JVD, No Murmur, No Rub Extremities: Normal Inspection, Normal Range of Motion, Non-Tender, Normal Capillary Refill, No Pedal Edema Neurological: Alert, Oriented, CN II-XII Intact, Normal Cognition, Normal Gait, Normal Reflexes, No Motor/Sensory Deficits Psychiatric: Normal Affect, Normal Mood Skin Exam: Warm, Dry, Intact, Normal Color, No Rash Course - Vital Signs Last Recorded V/S: Last Vital Signs Temp 98.6 F 07/26/20 16:04 Pulse 84 07/26/20 16:04 Resp 16 07/26/20 16:04 BP 133/77 07/26/20 16:04 Pulse Ox 97 07/26/20 16:04 - Orders/Labs/Meds Meds: Medications Discontinued Medications Generic Name Dose Route Start Last Admin Trade Name Freq PRN Reason Stop Dose Admin Tetracaine HCl 2 ml 07/26/20 16:20 07/26/20 16:43 Tetracaine 0.5% Steri-Unit Marisa EYEBOTH 07/26/20 16:21 2 ml ASDIRECTED ONE Administration Departure - Departure Time of Disposition: 16:55 Disposition: Home, Self-Care 01 Condition: Good Clinical Impression: Conjunctivitis Qualifiers: Conjunctivitis type: acute Acute conjunctivitis type: bacterial Laterality: bilateral Qualified Code(s): H10.33 - Unspecified acute conjunctivitis, bilateral - Discharge Information Prescriptions: Ciprofloxacin [Ciloxan 0.3% Ophth Soln] 2 drop EYEBOTH Q4H 7 Days #1 bottle Instructions: Bacterial Conjunctivitis, Adult, [id number] Referrals: Guillermo Matos MD [Primary Care Provider] - Forms: ED Department Discharge Additional Instructions: Do not place contacts in eyes until symptoms entirely resolved and then use fresh new contacts only. Use prescription antibiotic eyedrops as directed for 7 days. Use artificial tears to maintain good eye hydration. Gently clean the eyelashes with a non-tear shampoo twice daily. Wipe away any crusting with a warm cloth. Wash hands frequently due to highly contagious nature of illness. Schedule a follow-up appointment in 3-5 your local eye doctor. Sepsis Event Note (ED) - Evaluation Sepsis Screening Result: No Definite Risk - Focused Exam Vital Signs: Vital Signs Temp Pulse Resp BP Pulse Ox 07/26/20 16:04 98.6 F 84 16 133/77 97 07/26/20 16:01 98.6 F 84 16 133/77 97 - Assessment/Plan Assessment:: 39-year-old female with acute bilateral eye pain associated with redness, chemosis and clear discharge upon awaking this morning. Patient had placed cosmetic contact lenses in her eyes last night and left them in overnight. Lenses were removed this morning. Patient denies any injury to her eye. Examination reveals evidence of bilateral acute conjunctivitis. Her lids were everted and there was no foreign body. There was no fluorescein dye uptake on either cornea. No foreign body visualized on the cornea bilaterally. No globe rupture. Patient advised to dispose of previously used contacts and not place additional contacts in eyes until symptoms entirely resolved. Will start the patient on a fluoroquinolone eyedrop to cover Pseudomonas. Also encourage good eye hydration and hygiene with artificial tears and a tearless shampoo. Strongly advised patient to follow-up with her eye doctor in the next 3 to 5 days. Discharge home. Plan: 1. Dispose of previous contacts and do not place new contacts denies until symptoms entirely resolved. 2. Start Ciloxan eyedrops 2 drops each eye every 4 hours for 7 days. 3. Maintain good eye hydration with artificial tears and good eye hygiene by washing lashes with a tubular shampoo. 4. Schedule a follow-up appointment with your eye doctor within 3 to 5 days.
== END 2020-07-26 16:57 | disposition home or self-care (01) ==
LOC: JP.ED 15:52
DX: H10.33 Unspecified acute conjunctivitis, bilateral (principal); J45.909 Unspecified asthma, uncomplicated; K21.9 Gastro-esophageal reflux disease without esophagitis; F32.9 Major depressive disorder, single episode, unspecified; F41.9 Anxiety disorder, unspecified; E03.9 Hypothyroidism, unspecified; E66.9 Obesity, unspecified; F17.210 Nicotine dependence, cigarettes, uncomplicated; Z91.013 Allergy to seafood; Z91.018 Allergy to other foods; Z88.0 Allergy status to penicillin; Z88.8 Allergy status to other drugs, medicaments and biological substances; Z91.09 Other allergy status, other than to drugs and biological substances; Z88.5 Allergy status to narcotic agent; Z68.41 Body mass index [BMI] 40.0-44.9, adult; Z79.899 Other long term (current) drug therapy
CPT/HCPCS: 99283

== ENCOUNTER 2020-09-09 21:58 | Emergency (ER) | payer MEDICAID ==
[2020-09-09 22:24] VITALS: BP 154/76; PULSE 99
[2020-09-09] MEDS ORDERED: Codeine/guaiFENesin 100mg-10 MG/5 ML Syrup 10 ML Cup PO ONE (22:52)
--- NOTE | 2020-09-09 22:59 | EDM.PDOC ---
ED HPI GENERAL MEDICAL PROBLEM - General Chief Complaint: Respiratory Problem Stated Complaint: SOB,PAIN Time Seen by Provider: 09/09/20 22:40 Source of Information: Reports: Patient, Old Records, RN History Limitations: Reports: No Limitations - History of Present Illness INITIAL COMMENTS - FREE TEXT/NARRATIVE: 40 yo female presents with an infrequent cough that is occasionally productive of colored sputum. Has had a low grade fever. Sx's for a couple days. No SOB. Has a sharp pain in her chest associated with deep breathing. Is taking ibuprofen and acetaminophen without relief. No known exposures. Contacted Dr. Matos through her "[facility]" and was prescribed azithromycin and albuterol without an exam and was told to go to the ER to be seen. No calf pain or LE edema. Onset: Gradual Onset Date: 09/07/20 Duration: Day(s): (2), Constant Location: Reports: Chest Quality: Reports: Sharp, Stabbing Severity: Moderate Improves with: Reports: Other (shallow breathing) Worsens with: Reports: Other (deep breathing) Context: Reports: Other (see HPI) Associated Symptoms: Reports: Chest Pain (pleuritic), Cough (not frequent), Fever/Chills. 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: Acetaminophen, Breathing Treatments, NSAIDS Upper Posterior Back Pain Score (Numeric/FACES): 7 - Related Data Allergies Allergy/AdvReac Type Severity Reaction Status Date / Time shellfish derived Allergy Severe Anaphylactic Verified 09/09/20 22:29 Shock kiwi Allergy Facial Verified 09/09/20 22:29 Swelling Penicillins Allergy Rash Verified 09/09/20 22:29 clonazepam [From Klonopin] AdvReac Hallucinati Verified 09/09/20 22:29 ons hydromorphone HCl AdvReac Nausea Verified 09/09/20 22:29 [From Dilaudid] varenicline tartrate AdvReac Seizure Verified 09/09/20 22:29 [From Chantix] Home Meds: Home Meds FLUoxetine [PROzac] 80 mg PO DAILY 06/03/14 [History] Albuterol [Ventolin HFA] 2 puff INH Q4H PRN 06/06/14 [History] LORazepam [Ativan] 1 mg PO Q4HR PRN 06/06/14 [History] Omeprazole [Prilosec] 40 mg PO DAILY 08/13/14 [History] Dextroamphetamine/Amphetamine [Adderall 20 mg Tablet] 30 mg PO 1400 07/09/15 [History] Albuterol Sulfate 3 ml INH Q4HR PRN 05/07/16 [History] Amphetamine/Dextroamphetamine [Adderall XR] 40 mg PO WITHBREAKFAST cap.er 07/06/16 [Rx] Albuterol/Ipratropium [DuoNeb 3.0-0.5 MG/3 ML] 1 dose INH Q4H PRN 09/01/17 [History] Levothyroxine 1 tab PO DAILY 12/29/17 [History] lamoTRIgine [Lamictal] 100 mg PO DAILY 08/04/19 [History] Ofloxacin 4 drop TOP QID 01/02/20 [History] Past Medical History HEENT History: Reports: Hard of Hearing, Impaired Vision, Other (See Below) Other HEENT History: ear surgery to right Respiratory History: Reports: Asthma, Pneumonia, Recurrent Gastrointestinal History: Reports: Chronic Constipation, GERD Genitourinary History: Reports: Renal Calculus 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 wound that is healed Oncologic (Cancer) History: Reports: None Dermatologic History: Reports: None - Infectious Disease History Infectious Disease History: Reports: Chicken Pox - Past Surgical History Head Surgeries/Procedures: Reports: None HEENT Surgical History: Reports: Adenoidectomy Other HEENT Surgeries/Procedures: 15 ear surgeries Respiratory Surgical History: Reports: None GI Surgical History: Reports: Appendectomy, Cholecystectomy, Colonoscopy, EGD, Other (See Below) Other GI Surgeries/Procedures: panniculectomy, drainage of abdominal abcess x's 2 Female Surgical History: Reports: Breast Biopsy, Endometrial Ablation, Hysterectomy Endocrine Surgical History: Reports: None Neurological Surgical History: Reports: None Oncologic Surgical History: Reports: Lumpectomy Dermatological Surgical History: Reports: Skin Biopsy Social & Family History - Family History Family Medical History: Noncontributory HEENT: Reports: Macular Degeneration Cardiac: Reports: Hypertension Neurological: Reports: CVA Psychiatric: Reports: Anxiety, Depression Endocrine/Metabolic: Reports: Diabetes, type II Dermatologic: Reports: Psoriasis Oncologic: Reports: Colon - Tobacco Use Tobacco Use Status *Q: Current Every Day Tobacco User Years of Tobacco use: 20 Packs/Tins Daily: 0.2 - Caffeine Use Caffeine Use: Reports: Coffee, Energy Drinks, Soda, Tea - Recreational Drug Use Recreational Drug Use: No - Living Situation & Occupation Living situation: Reports: with Significant Other Occupation: Employed ED ROS GENERAL - Review of Systems Review Of Systems: See Below Constitutional: Reports: Fever (low grade), Malaise HEENT: Reports: No Symptoms Respiratory: Reports: Pleuritic Chest Pain, Cough (mild), Sputum (occasional). Denies: Shortness of Breath, Wheezing Cardiovascular: Reports: No Symptoms GI/Abdominal: Reports: No Symptoms : Reports: No Symptoms Musculoskeletal: Reports: No Symptoms Skin: Reports: No Symptoms Neurological: Reports: No Symptoms ED EXAM, GENERAL - Physical Exam Exam: See Below Exam Limited By: No Limitations General Appearance: Alert, WD/WN, No Apparent Distress Eye Exam: Bilateral Eye: Normal Inspection Ears: Normal External Exam, Normal Canal, Hearing Grossly Normal, Normal TMs Ear Exam: Bilateral Ear: Auricle Normal, Canal Normal, TM normal Nose: Normal Inspection, No Blood Throat/Mouth: Normal Inspection, Normal Lips, Normal Oropharynx, Normal Voice, No Airway Compromise Head: Atraumatic, Normocephalic Neck: Normal Inspection, Supple, Non-Tender. No: Lymphadenopathy (R), Lymphadenopathy (L) Respiratory/Chest: No Respiratory Distress, Lungs Clear, Normal Breath Sounds, No Accessory Muscle Use. No: Wheezing Cardiovascular: Regular Rate, Rhythm, No Edema Extremities: Normal Inspection, Non-Tender, No Pedal Edema. No: Pedal Edema, Limited Range of Motion, Increased Warmth, Redness Neurological: Alert, Oriented, CN II-XII Intact, Normal Cognition, No Motor/Sensory Deficits Psychiatric: Normal Affect, Normal Mood Skin Exam: Warm, Dry, Intact, Normal Color, No Rash Course - Vital Signs Last Recorded V/S: Last Vital Signs Temp 37.2 C 09/09/20 22:40 Pulse 99 09/09/20 22:40 Resp 28 H 09/09/20 22:40 BP 154/76 H 09/09/20 22:40 Pulse Ox 98 09/09/20 22:40 - Orders/Labs/Meds Orders: Active Orders 24 hr Category Date Time Status CORONAVIRUS COVID-19, MURALI Routine Lab 09/09/20 23:27 Ordered D-DIMER QUANTITATIVE [COAG] Stat Lab 09/09/20 23:00 Received Labs: Laboratory Tests 09/09/20 09/09/20 Range/Units 23:00 23:00 WBC 10.4 (4.5-11.0) K/uL RBC 4.55 (3.30-5.50) M/uL Hgb 12.5 (12.0-15.0) g/dL Hct 39.9 (36.0-48.0) % MCV 88 (80-98) fL MCH 28 (27-31) pg MCHC 31 L (32-36) % Plt Count 364 (150-400) K/uL C-Reactive Protein 0.29 (0.0-0.3) mg/dL Meds: Medications Discontinued Medications Generic Name Dose Route Start Last Admin Trade Name Freq PRN Reason Stop Dose Admin Guaifenesin/Codeine Phosphate 5 ml 09/09/20 22:52 09/09/20 23:01 Robitussin Ac PO 09/09/20 22:53 5 ml ONETIME ONE Administration Departure - Departure Time of Disposition: 23:40 Disposition: Home, Self-Care 01 Condition: Fair Clinical Impression: Viral illness, Pleurisy - Discharge Information *PRESCRIPTION DRUG MONITORING PROGRAM REVIEWED*: No *COPY OF PRESCRIPTION DRUG MONITORING REPORT IN PATIENT AMY: No Instructions: Pleurisy, [id number]-Cwpv Referrals: Guillermo Matos MD [Primary Care Provider] - Forms: ED Department Discharge Additional Instructions: Continue your current medications. Share your test results [facility] Dr. Matos. Your Covid test will be available in a few days, someone will contact you when it is available. It would be a good idea to isolate yourself in the meantime to prevent spread. Use the Percocet as needed for pain relief. If you need additional refills discuss with Dr. Matos. Sepsis Event Note (ED) - Evaluation Sepsis Screening Result: No Definite Risk - Focused Exam Vital Signs: Vital Signs Temp Pulse Resp BP Pulse Ox 09/09/20 22:40 37.2 C 99 28 H 154/76 H 98 09/09/20 22:22 37.2 C 99 28 H 154/76 H 98 - My Orders Last 24 Hours: My Active Orders 09/09/20 23:00 D-DIMER QUANTITATIVE [COAG] Stat 09/09/20 23:27 CORONAVIRUS COVID-19, MURALI Routine - Assessment/Plan Last 24 Hours: My Active Orders 09/09/20 23:00 D-DIMER QUANTITATIVE [COAG] Stat 09/09/20 23:27 CORONAVIRUS COVID-19, MURALI Routine
== END 2020-09-09 23:47 | disposition home or self-care (01) ==
LOC: JP.ED 21:58
DX: B34.9 Viral infection, unspecified (principal); R09.1 Pleurisy; J45.909 Unspecified asthma, uncomplicated; K21.9 Gastro-esophageal reflux disease without esophagitis; F41.9 Anxiety disorder, unspecified; F32.9 Major depressive disorder, single episode, unspecified; E03.9 Hypothyroidism, unspecified; F17.210 Nicotine dependence, cigarettes, uncomplicated; E66.9 Obesity, unspecified; Z68.41 Body mass index [BMI] 40.0-44.9, adult; Z91.013 Allergy to seafood; Z91.018 Allergy to other foods; Z88.0 Allergy status to penicillin; Z88.8 Allergy status to other drugs, medicaments and biological substances; Z88.5 Allergy status to narcotic agent; Z79.899 Other long term (current) drug therapy; Z20.828 Contact with and (suspected) exposure to other viral communicable diseases
CPT/HCPCS: 36415; 85027; 85379; 86140; 87635; 99284; A9270; U0002

== ENCOUNTER 2020-09-25 20:55 | Emergency (ER) | payer MEDICAID ==
[2020-09-25 21:12] VITALS: BP 137/86; PULSE 97
[2020-09-25] MEDS ORDERED: Lidocaine 1% with EPINEPHrine 1:100,000 50 ML MDV SUBCUT STA (21:21)
[2020-09-25] MEDS ORDERED: Bacitracin Oint 1 GM U/D Packet TOP ONE (21:21)
--- NOTE | 2020-09-25 21:23 | EDM.PDOC ---
ED HPI GENERAL MEDICAL PROBLEM - General Chief Complaint: Laceration Stated Complaint: FELL OUT OF TREE Time Seen by Provider: 09/25/20 21:19 Source of Information: Reports: Patient, RN Notes Reviewed History Limitations: Reports: No Limitations - History of Present Illness INITIAL COMMENTS - FREE TEXT/NARRATIVE: 40-year-old female presents emergency department today with a laceration to her left leg, she injured herself while she was climbing out of a tree and accidentally caught her leg on a branch, bleeding is controlled when she presents the emergency department Left Leg Pain Score (Numeric/FACES): 7 - Related Data Allergies Allergy/AdvReac Type Severity Reaction Status Date / Time shellfish derived Allergy Severe Anaphylactic Verified 09/25/20 21:12 Shock kiwi Allergy Facial Verified 09/25/20 21:12 Swelling Penicillins Allergy Rash Verified 09/25/20 21:12 clonazepam [From Klonopin] AdvReac Hallucinati Verified 09/25/20 21:12 ons hydromorphone HCl AdvReac Nausea Verified 09/25/20 21:12 [From Dilaudid] varenicline tartrate AdvReac Seizure Verified 09/25/20 21:12 [From Chantix] Home Meds: Home Meds FLUoxetine [PROzac] 80 mg PO DAILY 06/03/14 [History] Albuterol [Ventolin HFA] 2 puff INH Q4H PRN 06/06/14 [History] LORazepam [Ativan] 1 mg PO Q4HR PRN 06/06/14 [History] Omeprazole [Prilosec] 40 mg PO DAILY 08/13/14 [History] Dextroamphetamine/Amphetamine [Adderall 20 mg Tablet] 30 mg PO 1400 07/09/15 [History] Albuterol Sulfate 3 ml INH Q4HR PRN 05/07/16 [History] Amphetamine/Dextroamphetamine [Adderall XR] 40 mg PO WITHBREAKFAST cap.er 07/06/16 [Rx] Albuterol/Ipratropium [DuoNeb 3.0-0.5 MG/3 ML] 1 dose INH Q4H PRN 09/01/17 [History] Levothyroxine 1 tab PO DAILY 12/29/17 [History] lamoTRIgine [Lamictal] 100 mg PO DAILY 08/04/19 [History] Ofloxacin 4 drop TOP QID 01/02/20 [History] Past Medical History HEENT History: Reports: Hard of Hearing, Impaired Vision, Other (See Below) Other HEENT History: ear surgery to right Respiratory History: Reports: Asthma, Pneumonia, Recurrent Gastrointestinal History: Reports: Chronic Constipation, GERD Genitourinary History: Reports: Renal Calculus 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 wound that is healed Oncologic (Cancer) History: Reports: None Dermatologic History: Reports: None - Infectious Disease History Infectious Disease History: Reports: Chicken Pox - Past Surgical History Head Surgeries/Procedures: Reports: None HEENT Surgical History: Reports: Adenoidectomy Other HEENT Surgeries/Procedures: 15 ear surgeries GI Surgical History: Reports: Appendectomy, Cholecystectomy, Colonoscopy, EGD, Other (See Below) Other GI Surgeries/Procedures: panniculectomy, drainage of abdominal abcess x's 2 Female Surgical History: Reports: Breast Biopsy, Endometrial Ablation, Hysterectomy Oncologic Surgical History: Reports: Lumpectomy Dermatological Surgical History: Reports: Skin Biopsy Social & Family History - Family History Family Medical History: Noncontributory HEENT: Reports: Macular Degeneration Cardiac: Reports: Hypertension Neurological: Reports: CVA Psychiatric: Reports: Anxiety, Depression Endocrine/Metabolic: Reports: Diabetes, type II Dermatologic: Reports: Psoriasis Oncologic: Reports: Colon - Tobacco Use Tobacco Use Status *Q: Light Tobacco User Years of Tobacco use: 20 Packs/Tins Daily: 0.7 - Caffeine Use Caffeine Use: Reports: Soda - Recreational Drug Use Recreational Drug Use: No - Living Situation & Occupation Living situation: Reports: with Significant Other Occupation: Employed ED ROS GENERAL - Review of Systems Review Of Systems: See Below Constitutional: Reports: No Symptoms Musculoskeletal: Reports: No Symptoms Skin: Reports: Wound ED EXAM, SKIN/RASH Exam: See Below Exam Limited By: No Limitations General Appearance: Alert, WD/WN, No Apparent Distress Extremities: No Pedal Edema. No: Limited Range of Motion Front/Back Body Diagram: 1 - 11 cm laceration completely through the dermis ED SKIN PROCEDURES - Laceration/Wound Repair Left Posterior Leg Appearance: Subcutaneous, Linear, Clean Distal NVT: Neuro & Vascular Intact, No Tendon Injury Anesthetic Type: Local Local Anesthesia - Lidocaine (Xylocaine): 1% with EPI Local Anesthetic Volume: Other (12) Skin Prep: Saline Saline Irrigation (cc's): 180 Exploration/Debridement/Repair: Wound Explored, In a Bloodless Field, Explored to Base Closed with: Sutures Lac/Wound length In cm: 11 Suture Size: 3-0 # of Sutures: 14 Suture Type: Interrupted Suture Size: 3-0 # of Sutures: 7 Repaired with: Vicryl Sterile Dressing Applied: Nurse Tetanus Status Addressed: Yes Complications: No Course - Vital Signs Last Recorded V/S: Last Vital Signs Temp 96.8 F L 09/25/20 21:11 Pulse 97 09/25/20 21:11 Resp 16 09/25/20 21:11 BP 137/86 09/25/20 21:11 Pulse Ox 99 09/25/20 21:11 - Orders/Labs/Meds Meds: Medications Discontinued Medications Generic Name Dose Route Start Last Admin Trade Name Erasmo PRN Reason Stop Dose Admin Bacitracin 1 dose 09/25/20 21:21 09/25/20 21:31 Bacitracin Oint 1 Gm TOP 09/25/20 21:22 1 dose ONETIME ONE Administration Lidocaine/Epinephrine 20 ml 09/25/20 21:21 09/25/20 21:31 Xylocaine 1% With Epinephrine 1:100,000 SUBCUT 09/25/20 21:22 20 ml NOW STA Administration Departure - Departure Time of Disposition: 22:18 Disposition: Home, Self-Care 01 Condition: Good Clinical Impression: Laceration of left leg Qualifiers: Encounter type: initial encounter Qualified Code(s): S81.812A - Laceration without foreign body, left lower leg, initial encounter - Discharge Information Instructions: Laceration Care, Adult Referrals: PCP,None [Primary Care Provider] - Forms: ED Department Discharge Additional Instructions: Suture removal in 10 days, follow wound care instruction sheet, return to the emergency department or follow-up in clinic for suture removal Sepsis Event Note (ED) - Evaluation Sepsis Screening Result: No Definite Risk - Focused Exam Vital Signs: Vital Signs Temp Pulse Resp BP Pulse Ox 09/25/20 21:11 96.8 F L 97 16 137/86 99 - Assessment/Plan Plan: Assessment Acuity = acute Site and laterality = 11 cm laceration left leg Etiology = trauma with treee Manifestations = none Location of injury = Home Lab values = none Plan Suture removal in 10 days, follow wound care instruction sheet This note was dictated using [employer] voice recognition software please call with any questions on syntax or grammar.
== END 2020-09-25 22:35 | disposition home or self-care (01) ==
LOC: JP.ED 20:55
DX: S81.812A Laceration without foreign body, left lower leg, initial encounter (principal); J45.909 Unspecified asthma, uncomplicated; K21.9 Gastro-esophageal reflux disease without esophagitis; F41.9 Anxiety disorder, unspecified; F32.9 Major depressive disorder, single episode, unspecified; E03.9 Hypothyroidism, unspecified; F17.210 Nicotine dependence, cigarettes, uncomplicated; R56.9 Unspecified convulsions; E66.9 Obesity, unspecified; Z68.41 Body mass index [BMI] 40.0-44.9, adult; Z91.013 Allergy to seafood; Z91.018 Allergy to other foods; Z88.0 Allergy status to penicillin; Z88.5 Allergy status to narcotic agent; Z88.8 Allergy status to other drugs, medicaments and biological substances; W26.8XXA Contact with other sharp object(s), not elsewhere classified, initial encounter
CPT/HCPCS: 12034; 99282-25

== ENCOUNTER 2020-10-09 13:56 | Emergency (ER) | payer MEDICAID ==
[2020-10-09 15:30] VITALS: BP 133/77; PULSE 81
[2020-10-09] MEDS ORDERED: cefTRIAXone 1 GM Vial IM ONE (16:55)
[2020-10-09] MEDS ORDERED: Bacitracin Oint 1 GM U/D Packet TOP ONE (16:56)
--- NOTE | 2020-10-09 16:59 | EDM.PDOC ---
ED HPI GENERAL MEDICAL PROBLEM - General Chief Complaint: Wound Recheck Stated Complaint: POSSIBLE INFECTION Time Seen by Provider: 10/09/20 16:57 Source of Information: Reports: Patient History Limitations: Reports: No Limitations - History of Present Illness INITIAL COMMENTS - FREE TEXT/NARRATIVE: pt arrived with redness and induration on the upper part of the wound. This area is very tender, Onset: Gradual Duration: Day(s): Location: Reports: Lower Extremity, Left, Other ( the wound is on the back of the knee of the left knee. She fell out of a tree and got the lacertion. This was repaired by Dr Officer in the Er. She has been on doxycyline. ) Associated Symptoms: Reports: No Other Symptoms - Related Data Allergies Allergy/AdvReac Type Severity Reaction Status Date / Time shellfish derived Allergy Severe Anaphylactic Verified 10/09/20 15:16 Shock kiwi Allergy Facial Verified 10/09/20 15:16 Swelling Penicillins Allergy Rash Verified 10/09/20 15:16 clonazepam [From Klonopin] AdvReac Hallucinati Verified 10/09/20 15:16 ons hydromorphone HCl AdvReac Nausea Verified 10/09/20 15:16 [From Dilaudid] varenicline tartrate AdvReac Seizure Verified 10/09/20 15:16 [From Chantix] Home Meds: Home Meds FLUoxetine [PROzac] 80 mg PO DAILY 06/03/14 [History] Albuterol [Ventolin HFA] 2 puff INH Q4H PRN 06/06/14 [History] LORazepam [Ativan] 1 mg PO Q4HR PRN 06/06/14 [History] Omeprazole [Prilosec] 40 mg PO DAILY 08/13/14 [History] Dextroamphetamine/Amphetamine [Adderall 20 mg Tablet] 30 mg PO 1400 07/09/15 [History] Albuterol Sulfate 3 ml INH Q4HR PRN 05/07/16 [History] Amphetamine/Dextroamphetamine [Adderall XR] 40 mg PO WITHBREAKFAST cap.er 07/06/16 [Rx] Albuterol/Ipratropium [DuoNeb 3.0-0.5 MG/3 ML] 1 dose INH Q4H PRN 09/01/17 [History] Levothyroxine 1 tab PO DAILY 12/29/17 [History] lamoTRIgine [Lamictal] 150 mg PO DAILY 08/04/19 [History] Doxycycline [Vibramycin] 100 mg PO BID 10/09/20 [History] Past Medical History HEENT History: Reports: Hard of Hearing, Impaired Vision, Other (See Below) Other HEENT History: ear surgery to right Respiratory History: Reports: Asthma, Pneumonia, Recurrent Gastrointestinal History: Reports: Chronic Constipation, GERD Genitourinary History: Reports: Renal Calculus 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 wound that is healed Oncologic (Cancer) History: Reports: None Dermatologic History: Reports: None - Infectious Disease History Infectious Disease History: Reports: Chicken Pox - Past Surgical History Head Surgeries/Procedures: Reports: None HEENT Surgical History: Reports: Adenoidectomy Other HEENT Surgeries/Procedures: 15 ear surgeries Respiratory Surgical History: Reports: None GI Surgical History: Reports: Appendectomy, Cholecystectomy, Colonoscopy, EGD, Other (See Below) Other GI Surgeries/Procedures: panniculectomy, drainage of abdominal abcess x's 2 Female Surgical History: Reports: Breast Biopsy, Endometrial Ablation, Hysterectomy Other Female Surgeries/Procedures: x3 lumpectomy peniculectomy Endocrine Surgical History: Reports: None Neurological Surgical History: Reports: None Oncologic Surgical History: Reports: Lumpectomy Dermatological Surgical History: Reports: Skin Biopsy Social & Family History - Family History Family Medical History: No Pertinent Family History HEENT: Reports: Macular Degeneration Cardiac: Reports: Hypertension Neurological: Reports: CVA Psychiatric: Reports: Anxiety, Depression Endocrine/Metabolic: Reports: Diabetes, type II Dermatologic: Reports: Psoriasis Oncologic: Reports: Colon - Tobacco Use Tobacco Use Status *Q: Current Every Day Tobacco User Years of Tobacco use: 15 Packs/Tins Daily: 0.5 Second Hand Smoke Exposure: No - Caffeine Use Caffeine Use: Reports: Soda - Recreational Drug Use Recreational Drug Use: No - Living Situation & Occupation Living situation: Reports: with Significant Other Occupation: Employed ED ROS GENERAL - Review of Systems Review Of Systems: See Below Constitutional: Reports: Fever HEENT: Reports: No Symptoms Respiratory: Reports: No Symptoms Cardiovascular: Reports: No Symptoms Endocrine: Reports: No Symptoms GI/Abdominal: Reports: No Symptoms Musculoskeletal: Reports: Other ( infection in a wound on the back of the left knee. ) Neurological: Reports: No Symptoms ED EXAM, SKIN/RASH Exam: See Below Text/Narrative:: pt arrived with a red indurated area on the upper portion of the wound. There has been minimal drainage. The stitches were removed and it has opened up slightly. Exam Limited By: No Limitations General Appearance: Alert, Other (pt has a low grade temp. ) Extremities: Other (pt has a red indurated wound on the upper portion. This is very tender. There is no area that appears to be loculated pus. ) Neurological: Alert, Oriented, Normal Cognition Course - Vital Signs Last Recorded V/S: Last Vital Signs Temp 36.0 C L 10/09/20 15:23 Pulse 81 10/09/20 15:23 Resp 20 10/09/20 15:23 BP 133/77 10/09/20 15:23 Pulse Ox 98 10/09/20 15:23 - Orders/Labs/Meds Meds: Medications Discontinued Medications Generic Name Dose Route Start Last Admin Trade Name Gurwinderq PRN Reason Stop Dose Admin Bacitracin 1 dose 10/09/20 16:56 10/09/20 17:10 Bacitracin Oint 1 Gm TOP 10/09/20 16:57 1 dose ONETIME ONE Administration Ceftriaxone Sodium 1 gm 10/09/20 16:55 10/09/20 17:09 Rocephin IM 10/09/20 16:56 1 gm ONETIME ONE Administration Lidocaine HCl 5 ml 10/09/20 16:56 10/09/20 17:09 Xylocaine-Mpf 1% INJECT 10/09/20 16:57 5 ml ONETIME ONE Administration - Re-Assessments/Exams Free Text/Narrative Re-Assessment/Exam: 10/09/20 17:49 wound was clean ed well dressed with bacatracin. She was given rocephen 1 gm im. Departure - Departure Time of Disposition: 16:57 Disposition: Home, Self-Care 01 Condition: Fair Clinical Impression: Cellulitis - Discharge Information Instructions: Cellulitis, Adult, [id number] Referrals: Guillermo Matos MD [Primary Care Provider] - Forms: ED Department Discharge Care Plan Goals: moist warm packs to the area bid, clean well, stop doxycline switch to clindomycin 300mg tid for 1 week, dress with a small amount of bacatracin adaptic pads and kurlex. appt with Dr Matos tuesday. Sepsis Event Note (ED) - Evaluation Sepsis Screening Result: No Definite Risk - Focused Exam Vital Signs: Vital Signs Temp Pulse Resp BP Pulse Ox 10/09/20 15:23 36.0 C L 81 20 133/77 98
== END 2020-10-09 17:35 | disposition home or self-care (01) ==
LOC: JP.ED 13:56
DX: L03.116 Cellulitis of left lower limb (principal); J45.909 Unspecified asthma, uncomplicated; K21.9 Gastro-esophageal reflux disease without esophagitis; F41.9 Anxiety disorder, unspecified; F32.9 Major depressive disorder, single episode, unspecified; E03.9 Hypothyroidism, unspecified; F17.210 Nicotine dependence, cigarettes, uncomplicated; E66.9 Obesity, unspecified; Z91.013 Allergy to seafood; Z91.018 Allergy to other foods; Z88.0 Allergy status to penicillin; Z88.8 Allergy status to other drugs, medicaments and biological substances; Z88.5 Allergy status to narcotic agent; Z79.899 Other long term (current) drug therapy
CPT/HCPCS: 96372; 99282; J0696; J2001

== ENCOUNTER 2020-10-11 20:28 | Emergency (ER) | payer MEDICAID ==
[2020-10-11 21:19] VITALS: BP 136/66; PULSE 80
--- NOTE | 2020-10-11 22:14 | EDM.PDOC ---
ED HPI GENERAL MEDICAL PROBLEM - General Chief Complaint: Wound Recheck Stated Complaint: MEDICAL Time Seen by Provider: 10/11/20 21:30 Source of Information: Reports: Patient History Limitations: Reports: No Limitations - History of Present Illness INITIAL COMMENTS - FREE TEXT/NARRATIVE: 40-year-old female with a laceration to the posterior aspect of her left knee which was repaired 3 weeks ago, became infected and she was started on antibiotics a few days ago. Today the medial aspect of the wound opened with a small amount of drainage although the erythema looks better. She has a burning sensation from the wound. Onset: Sudden Duration: Hour(s): (The wound open within the last 2 hours) Location: Reports: Other (Posterior left leg) Left Knee Pain Score (Numeric/FACES): 7 - Related Data Allergies Allergy/AdvReac Type Severity Reaction Status Date / Time shellfish derived Allergy Severe Anaphylactic Verified 10/09/20 15:16 Shock kiwi Allergy Facial Verified 10/09/20 15:16 Swelling Penicillins Allergy Rash Verified 10/09/20 15:16 clonazepam [From Klonopin] AdvReac Hallucinati Verified 10/09/20 15:16 ons hydromorphone HCl AdvReac Nausea Verified 10/09/20 15:16 [From Dilaudid] varenicline tartrate AdvReac Seizure Verified 10/09/20 15:16 [From Chantix] Home Meds: Home Meds FLUoxetine [PROzac] 80 mg PO DAILY 06/03/14 [History] Albuterol [Ventolin HFA] 2 puff INH Q4H PRN 06/06/14 [History] LORazepam [Ativan] 1 mg PO Q4HR PRN 06/06/14 [History] Omeprazole [Prilosec] 40 mg PO DAILY 08/13/14 [History] Dextroamphetamine/Amphetamine [Adderall 20 mg Tablet] 30 mg PO 1400 07/09/15 [History] Albuterol Sulfate 3 ml INH Q4HR PRN 05/07/16 [History] Amphetamine/Dextroamphetamine [Adderall XR] 40 mg PO WITHBREAKFAST cap.er 07/06/16 [Rx] Albuterol/Ipratropium [DuoNeb 3.0-0.5 MG/3 ML] 1 dose INH Q4H PRN 09/01/17 [History] Levothyroxine 1 tab PO DAILY 12/29/17 [History] lamoTRIgine [Lamictal] 150 mg PO DAILY 08/04/19 [History] Clindamycin HCl 300 mg PO TID 10/11/20 [History] Past Medical History HEENT History: Reports: Hard of Hearing, Impaired Vision, Other (See Below) Other HEENT History: ear surgery to right Respiratory History: Reports: Asthma, Pneumonia, Recurrent Gastrointestinal History: Reports: Chronic Constipation, GERD Genitourinary History: Reports: Renal Calculus 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 wound that is healed Oncologic (Cancer) History: Reports: None Dermatologic History: Reports: None - Infectious Disease History Infectious Disease History: Reports: Chicken Pox, MRSA Other Infectious Disease History: MRSA was inside an abscess to her bladder lift - Past Surgical History Head Surgeries/Procedures: Reports: None HEENT Surgical History: Reports: Adenoidectomy Other HEENT Surgeries/Procedures: 15 ear surgeries Respiratory Surgical History: Reports: None GI Surgical History: Reports: Appendectomy, Cholecystectomy, Colonoscopy, EGD, Other (See Below) Other GI Surgeries/Procedures: panniculectomy, drainage of abdominal abcess x's 2 Female Surgical History: Reports: Breast Biopsy, Endometrial Ablation, Hysterectomy Other Female Surgeries/Procedures: x3 lumpectomy peniculectomy Endocrine Surgical History: Reports: None Neurological Surgical History: Reports: None Oncologic Surgical History: Reports: Lumpectomy Dermatological Surgical History: Reports: Skin Biopsy Social & Family History - Family History Family Medical History: No Pertinent Family History HEENT: Reports: Macular Degeneration Cardiac: Reports: Hypertension Neurological: Reports: CVA Psychiatric: Reports: Anxiety, Depression Endocrine/Metabolic: Reports: Diabetes, type II Dermatologic: Reports: Psoriasis Oncologic: Reports: Colon - Tobacco Use Tobacco Use Status *Q: Current Every Day Tobacco User Years of Tobacco use: 20 Packs/Tins Daily: 0.2 - Caffeine Use Caffeine Use: Reports: Coffee, Soda - Recreational Drug Use Recreational Drug Use: No - Living Situation & Occupation Living situation: Reports: with Significant Other Occupation: Employed ED ROS GENERAL - Review of Systems Review Of Systems: See Below Constitutional: Denies: Fever, Chills Respiratory: Denies: Shortness of Breath Cardiovascular: Denies: Chest Pain GI/Abdominal: Denies: Nausea, Vomiting Skin: Reports: Other (See HPI) Neurological: Reports: Other (Burning sensation around the wound) ED EXAM, SKIN/RASH Exam: See Below Exam Limited By: No Limitations General Appearance: Alert, Anxious Respiratory/Chest: No Respiratory Distress Extremities: Other (Exam is otherwise limited to the posterior aspect of the left leg. She has a transverse laceration which is healing, however the medial 4 cm is opened and there is subcutaneous tissue exposed. There is a small amount of drainage) Neurological: Alert, Oriented Psychiatric: Anxious Course - Vital Signs Last Recorded V/S: Last Vital Signs Temp 98.4 F 10/11/20 21:18 Pulse 80 10/11/20 21:18 Resp 16 10/11/20 21:18 BP 136/66 10/11/20 21:18 Pulse Ox - Re-Assessments/Exams Free Text/Narrative Re-Assessment/Exam: 10/11/20 22:12 The wound was cleaned and closed with Steri-Strips including the area of laceration that has not . She was given 10 Percocet to use for extra pain control and will recheck on Tuesday as scheduled, otherwise keep the wound clean while healing. Departure - Departure Time of Disposition: 22:27 Disposition: Home, Self-Care 01 Clinical Impression: Dehiscence of wound of skin Qualifiers: Encounter type: initial encounter Qualified Code(s): T81.30XA - Disruption of wound, unspecified, initial encounter - Discharge Information Instructions: Wound Care, Adult Referrals: Guillermo Matos MD [Primary Care Provider] - Forms: ED Department Discharge Care Plan Goals: Keep wound covered and clean while healing, and recheck on Tuesday as scheduled. Continue your medications as prescribed and use Percocet sparingly for pain control if needed. Sepsis Event Note (ED) - Evaluation Sepsis Screening Result: No Definite Risk - Focused Exam Vital Signs: Vital Signs Temp Pulse Resp BP 10/11/20 21:18 98.4 F 80 16 136/66
== END 2020-10-11 22:27 | disposition home or self-care (01) ==
LOC: JP.ED 20:28
DX: T81.30XA Disruption of wound, unspecified, initial encounter (principal); J45.909 Unspecified asthma, uncomplicated; K21.9 Gastro-esophageal reflux disease without esophagitis; R56.9 Unspecified convulsions; F41.9 Anxiety disorder, unspecified; F32.9 Major depressive disorder, single episode, unspecified; E03.9 Hypothyroidism, unspecified; F17.210 Nicotine dependence, cigarettes, uncomplicated; E66.9 Obesity, unspecified; Z68.41 Body mass index [BMI] 40.0-44.9, adult; Z91.013 Allergy to seafood; Z91.018 Allergy to other foods; Z88.0 Allergy status to penicillin; Z88.8 Allergy status to other drugs, medicaments and biological substances; Z79.899 Other long term (current) drug therapy
CPT/HCPCS: 99282